=== PATIENT | female | born 1930 | race Caucasian/White ===

== ENCOUNTER 2016-07-23 20:51 | Inpatient (IN) | payer MEDICARE, OTHER ==
[~2016-07-23] VITALS: Ht 154.9 cm; Wt 63.0 kg
--- OUTSIDE RECORDS SUMMARY | 2016-07-23 21:40 | XMS REPORT | Continuity of Care Document ---
Author Author [facility] Address Unknown Phone Unavailable Support Name Relationship Address Phone JAMEY HURLEY Fabricio DO Caregiver [address] [place] [address] KEVIN DICK Next Of Kin [address] [place] [address] Insurance Providers Payer Name Policy Number Subscriber Name Relationship Medicare A And B [id number] Daija Blanco 16 Self / Same As Patient Advance Directives Directive Response Recorded Date/Time Advanced Directives Unknown 07/23/16 2:49pm Type Other 07/23/16 2:49pm Other DAUGHTER HAS MEDICAL POA 07/23/16 2:49pm Chief Complaint and Reason for Visit Chief Complaint Psychological Complaint Reason for Visit Mental health problem Problems Active Problems Medical Problem Onset Date Status Cellulitis of left ankle ~09/22/2014 Acute Chest discomfort Unknown Acute Chronic pain of right knee 02/16/2016 Acute Chronic right hip pain 02/16/2016 Acute Costochondritis, acute Unknown Acute Dementia Unknown Acute Hypothyroid ~10/08/2014 Acute Mental health problem Unknown Acute Pruritus Unknown Acute UTI (urinary tract infection) Unknown Acute Medications Current Home Medications Medication Dose Units Route Directions Days/Qty Instructions Start Date Levothyroxine Sodium (Synthroid) 100 Mcg 100 Mcg ORAL Daily 10/08/14 Amlodipine Besylate (Norvasc) 5 Mg 5 Mg ORAL Daily 10/08/14 Losartan Potassium (Cozaar) 50 Mg 50 Mg ORAL Daily 10/08/14 Gabapentin (Neurontin) 100 Mg 100 Mg ORAL Three Times A Day 06/01/16 Ibuprofen (Motrin) 200 Mg 400 Mg ORAL Twice A Day 07/23/16 Past Home Medications Medication Directions Ordered Status [Unknown] , 09/22/14 Discontinued Clindamycin Hcl 150 Mg Cap, 150 Mg Oral Four Times Daily 09/22/14 Discontinued Levothyroxine Sodium 100 Mcg Tablet, 100 Mcg Oral Daily 10/08/14 Discontinued Hydroxyzine Hcl 25 Mg Tablet, 25-50 Mg Oral Every 6 Hours 02/16/16 Discontinued Hydrocodone Bit/Acetaminophen 1 Each Tablet, 1 Each Oral Every 6 Hours for Pain 02/16/16 Discontinued Sulfamethoxazole/Trimethoprim (Bactrim Ds 800MG/160MG) 1 Each Tablet, 1 Each Oral Twice A Day 05/03/16 Discontinued Ciprofloxacin Hcl 250 Mg Tablet, 250 Mg Oral Twice A Day 06/01/16 Discontinued Social History Query Response Start Date Stop Date Smoking Status Never smoker Hospital Discharge Instructions No hospital discharge instructions. Plan of Care Discharge Date 07/23/16 7:02pm Disposition [facility] DIST [facility]Y UNIT Condition at Discharge Transfer Prescriptions See Medication Section Additional Instructions/Education Proceded directly to [facility] in [place], [place]. Some of your test results may not be complete prior to your leaving the Emergency Department. The Emergency Department is not authorized to give test results over the phone. Please contact the doctor's office listed in this packet of information for your final results. Follow up with your primary care physician or return to the Emergency Department for worsening or worrisome symptoms. * Emergency Department phone number: [phone], x [phone]* MEDICAL RECORD If you need copies of your X-rays, call [phone]. If you need copies of your medical record, including lab results, a signed authorization for release of records will be required. A telephone call for release of Health Information is not allowed. BILLING Billing can sometimes be confusing and frustrating. To help avoid confusion in the future, please take a moment to acquaint yourself with the billing parties for services. SERVICE BILLING [employer]STITUTION [employer]Y Emergency Room Services [facility] Physician Services [facility] X-rays [facility] Patients will receive bills for services from the appropriate provider. If you have any questions about your [facility] bill, our staff will be happy to assist you. Please call [phone], and ask for the billing department. THANK YOU for choosing [facility] as your emergency care provider! Care Plan and Goals ~~Discharge Care Plan~~ Problem: Problems with coping. Goal: Patient will use appropriate resources to deal with life situations. Instructions: Call [place] hotline @ for assistance. Follow up with screener as directed. Functional Status No functional status results. Allergies, Adverse Reactions, Alerts Allergen Type Severity Reaction Status Last Updated Penicillin Allergy Severe Anaphylaxis Active 04/12/16 Codeine Allergy Unknown Active 07/23/16 mycins Allergy Unknown Active 09/22/14 Immunizations No immunization records. Vital Signs Acute Vital Signs Vital Response Date/Time Temperature (Fahrenheit) 98.8 07/23/2016 7:00pm Pulse 85 bpm 07/23/2016 7:00pm Respirations 20 07/23/2016 7:00pm Height 5 ft 3 in Weight 134 lb Body Mass Index 23.0 kg/m^2 Results Laboratory Results Test Name Result Units Flags Reference Collection Date/Time Result Date/ Time Comments White Blood Count 12.48 10^3uL H 4.0-11.0 07/23/2016 3:56pm 07/23/2016 4 :08pm Red Blood Count 4.33 10^6uL 4.00-5.00 07/23/2016 3:56pm 07/23/2016 4: 08pm Hemoglobin 12.6 g/dL 12.0-15.5 07/23/2016 3:56pm 07/23/2016 4:08pm Hematocrit 36.70 % 35.00-45.00 07/23/2016 3:56pm 07/23/2016 4:08pm Mean Corpuscular Volume 85 FL 80-100 07/23/2016 3:56pm 07/23/2016 4: 08pm Mean Corpuscular Hemoglobin 29.1 PG 26.0-34.0 07/23/2016 3:56pm 2016 4:08pm Mean Corpuscular Hemoglobin Concent 34.3 g/dL 31.0-37.0 07/23/2016 3: 56pm 07/23/2016 4:08pm Red Cell Distribution Width 13.7 % 11.8-15.6 07/23/2016 3:56pm 2016 4:08pm Platelet Count 318 10^3uL 150-450 07/23/2016 3:56pm 07/23/2016 4:08pm Mean Platelet Volume 7.9 FL 6.0-9.5 07/23/2016 3:56pm 07/23/2016 4: 08pm Neutrophils (%) (Auto) 75 % H 51-67 07/23/2016 3:56pm 07/23/2016 4:08pm Lymphocytes (%) (Auto) 16 % L 20-46 07/23/2016 3:56pm 07/23/2016 4:08pm Monocytes (%) (Auto) 8 % 3-11 07/23/2016 3:56pm 07/23/2016 4:08pm Eosinophils (%) (Auto) 1 % 0-4 07/23/2016 3:56pm 07/23/2016 4:08pm Basophils (%) (Auto) 1 % 0-2 07/23/2016 3:56pm 07/23/2016 4:08pm Neutrophils # (Auto) 9.3 X10^3 07/23/2016 3:56pm 07/23/2016 4:08pm Lymphocytes # (Auto) 2.0 X10^3 07/23/2016 3:56pm 07/23/2016 4:08pm Monocytes # (Auto) 1.0 X10^3 07/23/2016 3:56pm 07/23/2016 4:08pm Eosinophils # (Auto) 0.1 10^3uL 07/23/2016 3:56pm 07/23/2016 4:08pm Basophils # (Auto) 0.1 10^3uL 07/23/2016 3:56pm 07/23/2016 4:08pm Volume Urine Centrifuged 12 mL 07/23/2016 3:30pm 07/23/2016 4:32pm Urine Collection Type CLEAN CATCH 07/23/2016 3:30pm 07/23/2016 4: 32pm Urine Color Dark Yellow 07/23/2016 3:30pm 07/23/2016 4:19pm Urine Clarity Slightly Cloudy 07/23/2016 3:30pm 07/23/2016 4:19pm Urine pH 6.0 5.0 - 8.0 07/23/2016 3:30pm 07/23/2016 4:19pm Urine Specific [place] 1.020 1.005-1.030 07/23/2016 3:30pm 2016 4:19pm Urine Protein Negative Negative 07/23/2016 3:30pm 07/23/2016 4:19pm Urine Glucose (UA) Negative Negative 07/23/2016 3:30pm 07/23/2016 4: 19pm Urine Blood Trace-intact H Negative 07/23/2016 3:3007/23/2016 4: 19pm Urine Ketones Negative Negative 07/23/2016 3:30pm 07/23/2016 4:19pm Urine Nitrite Negative Negative 07/23/2016 3:3007/23/2016 4:19pm Urine Bilirubin Negative Negative 07/23/2016 3:3007/23/2016 4: 19pm Urine Urobilinogen 0.2 mg/dL 0.2-1.0 07/23/2016 3:30pm 07/23/2016 4: 19pm Urine Leukocyte Esterase Trace H Negative 07/23/2016 3:302016 4:19pm Urine Microscopic RBC 0-2 /HPF 07/23/2016 3:30pm 07/23/2016 4:32pm Urine WBC 2-5 /HPF 07/23/2016 3:3007/23/2016 4:32pm Urine Bacteria 1+ /HPF 07/23/2016 3:30pm 07/23/2016 4:32pm Urine Squamous Epithelial Cells 20-50 /LPF 07/23/2016 3:302016 4:32pm Urine Mucus 1+ 07/23/2016 3:3007/23/2016 4:32pm Sodium Level 133 mmol/L L 135-150 07/23/2016 3:5607/23/2016 4:19pm Potassium Level 4.7 mmol/L 3.5-5.1 07/23/2016 3:5607/23/2016 4:19pm Chloride Level 97 mmol/L L 98-108 07/23/2016 3:56pm 07/23/2016 4:19pm Carbon Dioxide Level 24 mmol/L 22-29 07/23/2016 3:56pm 07/23/2016 4: 19pm Anion Gap 17.7 MEQ/L H 3-15 07/23/2016 3:56pm 07/23/2016 4:19pm Blood Urea Nitrogen 18 mg/dL 7-18 07/23/2016 3:56pm 07/23/2016 4:19pm Creatinine 0.56 mg/dL L 0.6-1.2 07/23/2016 3:56pm 07/23/2016 4:19pm BUN/Creatinine Ratio 32 H 10-20 07/23/2016 3:56pm 07/23/2016 4:19pm Estimat Glomerular Filtration Rate 123.6 07/23/2016 3:56pm 2016 4:19pm Estimated GFR (Non- 102.2 07/23/2016 3:2016 4:19pm Glucose Level 98 mg/dL 70-110 07/23/2016 3:pm 07/23/2016 4:19pm Calculated Osmolality 260 mosm/L L 280-300 07/23/2016 3:56pm 07/23/2016 4:19pm Calcium Level 10.5 mg/dL 8.8-10.8 07/23/2016 3:07/23/2016 4:19pm Calcium/Ionized Calcium Ratio 4.2 mg/dL 3.8-4.6 07/23/2016 3:pm 07/23 4:19pm Total Bilirubin 0.7 mg/dL 0.1-1.0 07/23/2016 3:56pm 07/23/2016 4:19pm Alkaline Phosphatase 114 U/L 38-126 07/23/2016 3:pm 07/23/2016 4: 19pm Aspartate Amino Transf (AST/SGOT) 27 U/L 15-37 07/23/2016 3:2016 4:19pm Alanine Aminotransferase (ALT/SGPT) 28 U/L L 30-65 07/23/2016 3:pm 4:19pm Troponin I < 0.012 ng/mL 0.010-0.080 07/23/2016 3:56pm 07/23/2016 4: 28pm Results called to [] who read back the results. Called by Micha Smith at 1627 Total Protein 8.5 g/dL 6.4-8.5 07/23/2016 3:56pm 07/23/2016 4:19pm Albumin 4.7 g/dL 3.4-5.0 07/23/2016 3:56pm 07/23/2016 4:19pm Albumin/Globulin Ratio 1.236 1.1-1.8 07/23/2016 3:56pm 07/23/2016 4: 19pm Thyroid Stimulating Hormone (TSH) 3.85 uIU/mL # 0.46-4.68 07/23/2016 3: 56pm 07/23/2016 5:05pm C-Reactive Protein 1.10 mg/dL H 0.0-0.9 07/23/2016 3:56pm 07/23/2016 4: 19pm Serum Alcohol < 10.0 mg/dL L 10-80 07/23/2016 3:56pm 07/23/2016 4:19pm Procedures No known history of procedures. Encounters Encounter Location Arrival/Admit Date Discharge/Depart Date Attending Provider Departed Emergency Room [facility] 07/23/16 2:32pm 07/23/16 7:02pm JAMEY HURLEY DO Recent Diagnosis
--- OUTSIDE RECORDS SUMMARY | 2016-07-23 21:40 | XMS REPORT | Continuity of Care Document ---
Author Author [facility] Address Unknown Phone Unavailable Support Name Relationship Address Phone CORWIN CARL MD Caregiver [address] [place] [address] KEVIN DICK Next Of Kin [address] [place] [address] Insurance Providers Payer Name Policy Number Subscriber Name Relationship Medicare A And B [id number] Daija Blanco 18 Self / Same As Patient Other1 [id number] Daija Blanco 18 Self / Same As Patient Advance Directives Directive Response Recorded Date/Time Advanced Directives Unknown 04/12/16 8:02pm Type Living Will 02/16/16 1:54pm Chief Complaint and Reason for Visit Chief Complaint Cardiac Complaint Reason for Visit [id number] Chest discomfort Problems Active Problems Medical Problem Onset Date Status Cellulitis of left ankle ~09/22/2014 Acute Chest discomfort Unknown Acute Chronic pain of right knee 02/16/2016 Acute Chronic right hip pain 02/16/2016 Acute Costochondritis, acute Unknown Acute Hypothyroid ~10/08/2014 Acute Pruritus Unknown Acute Medications Current Home Medications Medication Dose Units Route Directions Days/Qty Instructions Start Date Levothyroxine Sodium (Synthroid) 100 Mcg 100 Mcg ORAL Daily 10/08/14 Amlodipine Besylate (Norvasc) 5 Mg 5 Mg ORAL Daily 10/08/14 Losartan Potassium (Cozaar) 50 Mg 50 Mg ORAL Daily 10/08/14 Hydroxyzine Hcl 25 Mg 25-50 Mg ORAL Every 6 Hours 30 02/16/16 Hydrocodone Bit/Acetaminophen 1 Each 1 Each ORAL Every 6 Hours for Pain 10 02/16/16 Past Home Medications Medication Directions Ordered Status [Unknown] , 09/22/14 Discontinued Clindamycin Hcl 150 Mg Cap, 150 Mg Oral Four Times Daily 09/22/14 Discontinued Levothyroxine Sodium 100 Mcg Tablet, 100 Mcg Oral Daily 10/08/14 Discontinued Social History Query Response Start Date Stop Date Smoking Status Never smoker Hospital Discharge Instructions No hospital discharge instructions. Plan of Care Discharge Date 04/12/16 11:00pm Disposition 01 HOME OR SELF-CARE Condition at Discharge Stable Instructions/Education Provided Costochondritis (DC) Prescriptions See Medication Section Additional Instructions/Education Ibuprofen and Tylenol for the chest discomfort. Analgesic cream massage and heat may help. Continue all current medications. If symptoms persist or worsen see your physician for follow-up Some of your test results may not [...] worrisome symptoms. * Emergency Department phone number: [phone], x [phone]* MEDICAL RECORD If you need copies of your X-rays, call [phone] x [phone]. If you need copies of [...] SERVICE BILLING [employer]STITUTION PARTY Emergency Room Services [facility] Physician Services [facility] X-rays [facility] Patients will receive bills for services from the appropriate provider. If you have any questions about your [facility] bill, our staff will be happy to assist you. Please call [phone], and ask for the billing department. THANK YOU for choosing [facility] as your emergency care provider! Care Plan and Goals ~~Discharge Care Plan~~ Problem: Chest, epigastric or chest wall pain Goal: Decreased pain Instructions: Take medication(s) as directed. Follow home discharge instructions. Follow up with primary care physician or tutor as directed. Functional Status No functional status results. Allergies, Adverse Reactions, Alerts Allergen Type Severity Reaction Status Last Updated Penicillin Allergy Severe Anaphylaxis Active 04/12/16 mycins Allergy Unknown Active 09/22/14 Immunizations No immunization records. Vital Signs Acute Vital Signs Vital Response Date/Time Temperature (Fahrenheit) 98.4 04/12/2016 11:20pm Pulse 87 bpm 04/12/2016 11:20pm Respirations 20 04/12/2016 11:20pm Height 5 ft 3 in Weight 126 lb Body Mass Index 22.0 kg/m^2 Results Laboratory Results Test Name Result Units Flags Reference Collection Date/Time Result Date/ Time Comments White Blood Count 8.34 10^3uL 4.0-11.0 04/12/2016 8:30pm 04/12/2016 8: 56pm Red Blood Count 4.16 10^6uL 4.00-5.00 04/12/2016 8:30pm 04/12/2016 8: 56pm Hemoglobin 11.8 g/dL L 12.0-15.5 04/12/2016 8:30pm 04/12/2016 8:56pm Hematocrit 34.70 % L 35.00-45.00 04/12/2016 8:30pm 04/12/2016 8:56pm Mean Corpuscular Volume 83 FL 80-100 04/12/2016 8:30pm 04/12/2016 8: 56pm Mean Corpuscular Hemoglobin 28.4 PG 26.0-34.0 04/12/2016 8:30pm 2016 8:56pm Mean Corpuscular Hemoglobin Concent 34.0 g/dL 31.0-37.0 04/12/2016 8: 30pm 04/12/2016 8:56pm Red Cell Distribution Width 13.7 % 11.8-15.6 04/12/2016 8:30pm 2016 8:56pm Platelet Count 272 10^3uL 150-450 04/12/2016 8:30pm 04/12/2016 8:56pm Mean Platelet Volume 8.4 FL 6.0-9.5 04/12/2016 8:30pm 04/12/2016 8: 56pm Neutrophils (%) (Auto) 59 % 51-67 04/12/2016 8:30pm 04/12/2016 8:56pm Lymphocytes (%) (Auto) 25 % 20-46 04/12/2016 8:30pm 04/12/2016 8:56pm Monocytes (%) (Auto) 13 % H 3-11 04/12/2016 8:30pm 04/12/2016 8:56pm Eosinophils (%) (Auto) 2 % 0-4 04/12/2016 8:30pm 04/12/2016 8:56pm Basophils (%) (Auto) 1 % 0-2 04/12/2016 8:30pm 04/12/2016 8:56pm Neutrophils # (Auto) 4.9 X10^3 04/12/2016 8:30pm 04/12/2016 8:56pm Lymphocytes # (Auto) 2.1 X10^3 04/12/2016 8:30pm 04/12/2016 8:56pm Monocytes # (Auto) 1.1 X10^3 04/12/2016 8:30pm 04/12/2016 8:56pm Eosinophils # (Auto) 0.2 10^3uL 04/12/2016 8:30pm 04/12/2016 8:56pm Basophils # (Auto) 0.1 10^3uL 04/12/2016 8:30pm 04/12/2016 8:56pm Prothrombin Time 11.3 SEC 10.0-12.5 04/12/2016 8:30pm 04/12/2016 9: 10pm Prothromb Time International Ratio 1.0 0.8-1.4 04/12/2016 8:30 9:10pm Sodium Level 137 mmol/L 135-150 04/12/2016 8:3004/12/2016 9:20pm Potassium Level 3.8 mmol/L 3.5-5.1 04/12/2016 8:30pm 04/12/2016 9:20pm Chloride Level 102 mmol/L 98-108 04/12/2016 8:30pm 04/12/2016 9:20pm Carbon Dioxide Level 24 mmol/L 22-29 04/12/2016 8:30pm 04/12/2016 9: 20pm Anion Gap 14.7 MEQ/L 3-15 04/12/2016 8:30pm 04/12/2016 9:20pm Blood Urea Nitrogen 16 mg/dL 7-18 04/12/2016 8:30pm 04/12/2016 9:20pm Creatinine 0.52 mg/dL L 0.6-1.2 04/12/2016 8:30pm 04/12/2016 9:20pm BUN/Creatinine Ratio 31 H 10-20 04/12/2016 8:30pm 04/12/2016 9:20pm Estimat Glomerular Filtration Rate 134.7 04/12/2016 8:302016 9:20pm Estimated GFR (Non- 111.3 04/12/2016 8:30pm 2016 9:20pm Glucose Level 124 mg/dL H 70-110 04/12/2016 8:30pm 04/12/2016 9:20pm Calculated Osmolality 267 mosm/L L 280-300 04/12/2016 8:30pm 04/12/2016 9:20pm Calcium Level 9.9 mg/dL 8.8-10.8 04/12/2016 8:3004/12/2016 9:20pm Calcium/Ionized Calcium Ratio 4.1 mg/dL 3.8-4.6 04/12/2016 8:30pm 04/12 9:20pm Total Bilirubin 0.6 mg/dL 0.1-1.0 04/12/2016 8:30pm 04/12/2016 9:20pm Alkaline Phosphatase 116 U/L 38-126 04/12/2016 8:30pm 04/12/2016 9: 20pm Aspartate Amino Transf (AST/SGOT) 23 U/L 15-37 04/12/2016 8:302016 9:20pm Alanine Aminotransferase (ALT/SGPT) 31 U/L 30-65 04/12/2016 8:30pm 9:20pm Troponin I 0.014 ng/mL 0.010-0.080 04/12/2016 8:30pm 04/12/2016 9:20pm BT-Xwa-A-Type Natriuretic Peptide 476 pg/mL H 0-450 04/12/2016 8:30pm 9:20pm <300 ng/mL - HF unlikely Age <50 years, NT-proBNP >450 pg/mL - HF Likely Age 50-75 yrs, NT-proBNP >900 pg/mL - HF Likely Age >75 yrs, NT-proBNP >1800 - HF likely Total Protein 7.8 g/dL 6.4-8.5 04/12/2016 8:30pm 04/12/2016 9:20pm Albumin 4.3 g/dL 3.4-5.0 04/12/2016 8:30pm 04/12/2016 9:20pm Albumin/Globulin Ratio 1.228 1.1-1.8 04/12/2016 8:30pm 04/12/2016 9: 20pm Procedures No known history of procedures. Encounters Encounter Location Arrival/Admit Date Discharge/Depart Date Attending Provider Departed Emergency Room [facility] 04/12/16 8:04pm 04/12/16 11:00pm CORWIN CARL MD Recent Diagnosis
--- OUTSIDE RECORDS SUMMARY | 2016-07-23 21:40 | XMS REPORT | Continuity of Care Document ---
Author Author [facility] Address Unknown Phone Unavailable Support Name Relationship Address Phone KARIS VALENCIA MD Caregiver [address] [place] [address] KEVIN DICK Next Of Kin [address] [place] [address] Insurance Providers Payer Name Policy Number Subscriber Name Relationship Medicare A And B [id number] Daija Blanco 18 Self / Same As Patient Other1 [id number] Daija Blanco 18 Self / Same As Patient Advance Directives Directive Response Recorded Date/Time Advanced Directives Yes 02/16/16 1:54pm Type Living Will 02/16/16 1:54pm Chief Complaint and Reason for Visit Chief Complaint Pain Reason for Visit [id number] Chronic pain of right knee Pruritus Problems Active Problems Medical Problem Onset Date Status Cellulitis of left ankle ~09/22/2014 Acute Chronic pain of right knee 02/16/2016 Acute Chronic right hip pain 02/16/2016 Acute Hypothyroid ~10/08/2014 Acute Pruritus Unknown Acute [...] discharge instructions. Plan of Care Discharge Date 02/16/16 5:36pm Disposition 01 HOME OR SELF-CARE Condition at Discharge Stable Instructions/Education Provided Hydrocodone/Acetaminophen (By mouth) Arthritis (ED) Prescriptions See Medication Section Additional Instructions/Education Take Tylenol (generic is fine) every 6 hours - up to 4 gm (4000 mg) daily Ibuprofen 400 mg every 6 hours as needed for pain You can take Tylenol and ibuprofen at the same time. Hydroxyzine 25 mg (1-2 tab) every 6 hours as needed for itching Return if symptoms worsen Follow up as soon as you can with Dr. Miller Hydrocodone 5/325 take 1/2 - 1 tab every 6 hours as needed for pain not controlled by over the counter medications Some of your test results may not [...] worrisome symptoms. * Emergency Department phone number: [phone], x [phone]* MEDICAL RECORD If you need copies of your X-rays, call [phone]. If you need copies of [...] the billing parties for services. [employer] Emergency Room Services [facility] Physician Services [facility] X[facility] [place] [facility] Patients will receive bills for services from the appropriate provider. If you have any questions about your [facility] bill, our staff will be happy to assist you. Please call [phone], and ask for the billing department. THANK YOU for choosing [facility] as your emergency care provider! Care Plan and Goals ~~Discharge Care Plan~~ Problem: Sprain, strain or fracture of extremity Goal: Extremity will be pink and warm to touch, with good movement of fingers or toes. Instructions: Apply ice bag and elevate extremity above the level of your heart. Monitor extremity for pink color to fingers or toes and movement. Call your physician if extremity becomes blue in color or cool to touch. Some swelling of fingers or toes is expected, continue to wiggle fingers and toes and keep elevated. Allow 24-48 hours for the splint to dry completely. Do not place splint on a hard surface to avoid a pressure area. Take medication(s) as directed. Follow up with Orthopedic or primary care physician as directed. Functional Status No functional status results. Allergies, Adverse Reactions, Alerts Allergen Type Severity Reaction Status Last Updated Penicillin Allergy Severe Anaphylaxis Active 02/16/16 mycins Allergy Unknown Active 09/22/14 Immunizations No immunization records. Vital Signs Acute Vital Signs Vital Response Date/Time Temperature (Fahrenheit) 98.4 02/16/2016 1:54pm Pulse 83 bpm 02/16/2016 9:06pm Respirations 18 02/16/2016 9:06pm Height 5 ft 3 in Weight 130 lb Body Mass Index 23.0 kg/m^2 Results Laboratory Results Test Name Result Units Flags Reference Collection Date/Time Result Date/ Time Comments White Blood Count 12.04 10^3uL H 4.0-11.0 02/16/2016 2:37pm 02/16/2016 3 :12pm Red Blood Count 4.10 10^6uL 4.00-5.00 02/16/2016 2:37pm 02/16/2016 3: 12pm Hemoglobin 11.7 g/dL L 12.0-15.5 02/16/2016 2:37pm 02/16/2016 3:12pm Hematocrit 34.50 % L 35.00-45.00 02/16/2016 2:37pm 02/16/2016 3:12pm Mean Corpuscular Volume 84 FL 80-100 02/16/2016 2:37pm 02/16/2016 3: 12pm Mean Corpuscular Hemoglobin 28.5 PG 26.0-34.0 02/16/2016 2:37pm 2015 3:12pm Mean Corpuscular Hemoglobin Concent 33.9 g/dL 31.0-37.0 02/16/2016 2: 37pm 02/16/2016 3:12pm Red Cell Distribution Width 13.4 % 11.8-15.6 02/16/2016 2:37pm 2015 3:12pm Platelet Count 284 10^3uL 150-450 02/16/2016 2:37pm 02/16/2016 3:12pm Mean Platelet Volume 8.0 FL 6.0-9.5 02/16/2016 2:37pm 02/16/2016 3: 12pm Neutrophils (%) (Auto) 72 % H 51-67 02/16/2016 2:37pm 02/16/2016 3:12pm Lymphocytes (%) (Auto) 15 % L 20-46 02/16/2016 2:37pm 02/16/2016 3:12pm Monocytes (%) (Auto) 12 % H 3-11 02/16/2016 2:37pm 02/16/2016 3:12pm Eosinophils (%) (Auto) 1 % 0-4 02/16/2016 2:37pm 02/16/2016 3:12pm Basophils (%) (Auto) 0 % 0-2 02/16/2016 2:37pm 02/16/2016 3:12pm Neutrophils # (Auto) 8.7 X10^3 02/16/2016 2:37pm 02/16/2016 3:12pm Lymphocytes # (Auto) 1.8 X10^3 02/16/2016 2:37pm 02/16/2016 3:12pm Monocytes # (Auto) 1.4 X10^3 02/16/2016 2:37pm 02/16/2016 3:12pm Eosinophils # (Auto) 0.1 10^3uL 02/16/2016 2:37pm 02/16/2016 3:12pm Basophils # (Auto) 0.0 10^3uL 02/16/2016 2:37pm 02/16/2016 3:12pm Sodium Level 138 mmol/L 135-150 02/16/2016 2:37pm 02/16/2016 3:21pm Potassium Level 3.9 mmol/L 3.5-5.1 02/16/2016 2:37pm 02/16/2016 3:21pm Chloride Level 102 mmol/L 98-108 02/16/2016 2:37pm 02/16/2016 3:21pm Carbon Dioxide Level 25 mmol/L 22-29 02/16/2016 2:37pm 02/16/2016 3: 21pm Anion Gap 15.4 MEQ/L H 3-15 02/16/2016 2:37pm 02/16/2016 3:21pm Blood Urea Nitrogen 14 mg/dL 7-18 02/16/2016 2:37pm 02/16/2016 3:21pm Creatinine 0.52 mg/dL L 0.6-1.2 02/16/2016 2:37pm 02/16/2016 3:21pm BUN/Creatinine Ratio 27 H 10-20 02/16/2016 2:37pm 02/16/2016 3:21pm Estimat Glomerular Filtration Rate 134.7 02/16/2016 2:37pm 2015 3:21pm Estimated GFR (Non- 111.3 02/16/2016 2:37pm 2015 3:21pm Glucose Level 104 mg/dL 70-110 02/16/2016 2:37pm 02/16/2016 3:21pm Calculated Osmolality 267 mosm/L L 280-300 02/16/2016 2:37pm 02/16/2016 3:21pm Calcium Level 10.0 mg/dL 8.8-10.8 02/16/2016 2:37pm 02/16/2016 3:21pm Calcium/Ionized Calcium Ratio 4.3 mg/dL 3.8-4.6 02/16/2016 2:37pm 02/15 3:21pm Total Bilirubin 1.0 mg/dL 0.1-1.0 02/16/2016 2:37pm 02/16/2016 3:21pm Alkaline Phosphatase 109 U/L 38-126 02/16/2016 2:37pm 02/16/2016 3: 21pm Aspartate Amino Transf (AST/SGOT) 20 U/L 15-37 02/16/2016 2:37pm 2015 3:21pm Alanine Aminotransferase (ALT/SGPT) 22 U/L L 30-65 02/16/2016 2:37pm 08/2015 3:21pm Total Protein 7.3 g/dL 6.4-8.5 02/16/2016 2:37pm 02/16/2016 3:21pm Albumin 4.2 g/dL 3.4-5.0 02/16/2016 2:37pm 02/16/2016 3:21pm Albumin/Globulin Ratio 1.354 1.1-1.8 02/16/2016 2:37pm 02/16/2016 3: 21pm Procedures No known history of procedures. Encounters Encounter Location Arrival/Admit Date Discharge/Depart Date Attending Provider Departed Emergency Room [facility] 02/16/16 1:54pm 02/16/16 5:36pm KARIS VALENCIA MD Registered Clinic [facility] 02/16/16 1:40pm KARIS VALENCIA MD Recent Diagnosis
--- OUTSIDE RECORDS SUMMARY | 2016-07-23 21:40 | XMS REPORT | Continuity of Care Document ---
Author Author [facility] Organization [facility] Address Unknown Phone Unavailable Support Name Relationship Address Phone HAYES MINER MD Caregiver [address] [place] [address] Insurance Providers Payer Name Policy Number Subscriber Name Relationship Medicare A And B [id number] Daija Blanco 18 Self / Same As Patient Chief Complaint and Reason for Visit Chief Complaint Malaise Reason for Visit [id number] Problems Medical Problems Problem Onset Date Status Cellulitis of left ankle ~09/22/2014 Active Hypothyroid Unknown Active Medications Medication Dose Route Sig Days/Qty Instructions Order Date Discontinued Date Status [Unknown] 09/22/14 Active Clindamycin HCl 150 Mg ORAL FOUR TIMES DAILY 40 Qty 09/22/14 10/08/14 Discontinued Levothyroxine Sodium (Synthroid) 100 Mcg ORAL DAILY 10/08/14 Active Amlodipine Besylate (Norvasc) 5 Mg ORAL DAILY 10/08/14 Active Losartan Potassium (Cozaar) 50 Mg ORAL DAILY 10/08/14 Active Levothyroxine Sodium 100 Mcg ORAL DAILY 30 Qty 10/08/14 Active Social History No social history. Hospital Discharge Instructions No hospital discharge instructions. Plan of Care Discharge Date 10/08/14 10:25pm Disposition 01 HOME OR SELF-CARE Condition at Discharge Stable Instructions/Education Provided Hypothyroidism (ED) Prescriptions See Medications Section Additional Instructions/Education Levothyroxine 100mcg as Rx'd, #30 prescribed -- refills from your PCP. Drive safe! Some of your test results may not [...] worrisome symptoms. * Emergency Department phone number: [phone], x [phone]* MEDICAL RECORD If you need copies of your X-rays, call [phone]. If you need copies of [...] the billing parties for services. [employer] [employer] Emergency Room Services [facility] Physician Services [facility] X[facility] [place] [facility] Patients will receive bills for services from the appropriate provider. If you have any questions about your [facility] bill, our staff will be happy to assist you. Please call [phone], and ask for the billing department. THANK YOU for choosing [facility] as your emergency care provider! Functional Status No functional status results. Allergies, Adverse Reactions, Alerts Allergen Type Severity Reaction Status Last Updated Penicillin Allergy Severe Anaphylaxis Active 09/22/14 mycins Allergy Unknown Active 09/22/14 Immunizations No immunization records. Vital Signs Acute Vital Signs Vital Response Date/Time Temperature (Fahrenheit) 98.4 Pulse 91 bpm Respirations 18 Height 5 ft 3 in Weight 125 lb Body Mass Index 22.0 kg/m^2 Results No known relevant diagnostic tests, laboratory data and/or discharge summary. Procedures No known history of procedures. Encounters Encounter Location Date/Time Departed Emergency Room [facility] 10/08/14 9:31pm Departed Emergency Room [facility] 09/22/14 4:33pm Recent Diagnosis
--- OUTSIDE RECORDS SUMMARY | 2016-07-23 21:40 | XMS REPORT | Continuity of Care Document ---
Author Author [facility] Address Unknown Phone Unavailable Care Team Providers Care Roof Bolter Helper Name Role Phone LING ZIEGLER MD Primary Care Physician [phone] Insurance Providers Payer Name Policy Number Subscriber Name Relationship Medicare A And B [id number] Daija Blanco 18 Self / Same As Patient Other1 [id number] Daija Blanco 18 Self / Same As Patient Advance Directives Directive Response Recorded Date/Time Advanced Directives Unknown 06/01/16 4:13pm Type Living Will 06/01/16 4:13pm Chief Complaint and Reason for Visit Chief Complaint Psychological Complaint Reason for Visit [id number] Dementia Problems Active Problems Medical Problem Onset Date Status Cellulitis of left ankle ~09/22/2014 Acute Chest discomfort Unknown Acute Chronic pain of right knee 02/16/2016 Acute Chronic right hip pain 02/16/2016 Acute Costochondritis, acute Unknown Acute Dementia Unknown Acute Hypothyroid ~10/08/2014 Acute Pruritus Unknown Acute UTI (urinary tract [...] Mg ORAL Every 6 Hours 30 02/16/16 Gabapentin (Neurontin) 100 Mg 100 Mg ORAL Three Times A Day 06/01/16 Ciprofloxacin Hcl 250 Mg 250 Mg ORAL Twice A Day 10 06/01/16 Past Home Medications Medication Directions Ordered Status [Unknown] , 09/22/14 Discontinued Clindamycin Hcl 150 Mg Cap, 150 Mg Oral Four Times Daily 09/22/14 Discontinued Levothyroxine Sodium 100 Mcg Tablet, 100 Mcg Oral Daily 10/08/14 Discontinued Hydrocodone Bit/Acetaminophen 1 Each Tablet, 1 Each Oral Every 6 Hours for Pain 02/16/16 Discontinued Sulfamethoxazole/Trimethoprim (Bactrim Ds 800MG/160MG) 1 Each Tablet, 1 Each Oral Twice A Day 05/03/16 Discontinued Social History Query Response Start Date Stop Date Smoking Status Never smoker Hospital Discharge Instructions No hospital discharge instructions. Plan of Care Discharge Date 06/01/16 6:44pm Disposition 01 HOME OR SELF-CARE Condition at Discharge Stable Instructions/Education Provided Urinary Tract Infections in Adults Prescriptions See Medication Section Referrals LING ZIEGLER MD - Additional Instructions/Education Follow up with primary care provider in am at 9:45 am. Please retreat to your room this evening. If symptoms worsen, return to ER. Take the medication as directed Some of your test results may not [...] worrisome symptoms. * Emergency Department phone number: [phone], x [phone]* MEDICAL RECORD If you need copies of your X-rays, call [phone] x [phone]. If you need copies of [...] [employer]ING [employer] Emergency Room Services [facility] Physician Services [facility] X-rays [place] [facility] Patients will receive bills for services from the appropriate provider. If you have any questions about your [facility] bill, our staff will be happy to assist you. Please call [phone], and ask for the billing department. THANK YOU for choosing [facility] as your emergency care provider! Care Plan and Goals ~~Discharge Care Plan~~ Problem: Problems with coping. Goal: Patient will use appropriate resources to deal with life situations. Instructions: Call [place] hotline @ for assistance. Follow up with screener as directed. Functional Status No functional status results. Allergies, Adverse Reactions, Alerts Allergen Type Severity Reaction Status Last Updated Penicillin Allergy Severe Anaphylaxis Active 04/12/16 mycins Allergy Unknown Active 09/22/14 Immunizations No immunization records. Vital Signs Acute Vital Signs Vital Response Date/Time Temperature (Fahrenheit) 97.1 06/01/2016 6:43pm Pulse 94 bpm 06/01/2016 6:43pm Respirations 16 06/01/2016 6:43pm Height 5 ft 3 in Weight 130 lb Body Mass Index 23.0 kg/m^2 Results Pending Laboratory Results Test Name Collection Date/Time Procedures No known history of procedures. Encounters Encounter Location Arrival/Admit Date Discharge/Depart Date Attending Provider Departed Emergency Room [facility] 06/01/16 4:13pm 06/01/16 6:44pm JOHN PRIETO MD Registered Clinic [facility] 05/03/16 1:49pm COURTNEY SCHAFER Recent Diagnosis
--- OUTSIDE RECORDS SUMMARY | 2016-07-23 21:41 | XMS REPORT | Continuity of Care Document ---
Author Author [facility] Address Unknown Phone Unavailable Allergies Active Description Code Type Severity Reaction Onset Reported/Identified Relationship to Patient Clinical Status Yes MYCINS Drug Allergy N/A N/A Yes PENICILLIN Drug Allergy N/A N/A Yes mycins mycins Unknown N/A 09/22/2014 Yes Penicillins [id number] Drug Allergy Severe Anaphylaxis 04/12/2016 Medications Problems Date Dx Coded Attending Type Code Diagnosis Diagnosed By 09/22/2014 JAMEY HURLEY DO Ot 682.6 CELLULITIS OF LEG 09/22/2014 JAMEY HURLEY DO Ot 729.5 PAIN IN LIMB 10/08/2014 KRISTOFER CAMPOS, HAYES R Ot 244.9 HYPOTHYROIDISM NOS 02/16/2016 KARIS VALENCIA MD, Ot L29.9 PRURITUS, UNSPECIFIED 02/16/2016 KARIS VALENCIA MD, Ot M16.11 UNILATERAL PRIMARY OSTEOARTHRITIS, RIGHT 02/16/2016 KARIS VALENCIA MD, Ot M17.11 UNILATERAL PRIMARY OSTEOARTHRITIS, RIGHT 02/16/2016 KARIS VALENCIA MD, Ot M25.551 PAIN IN RIGHT HIP 02/16/2016 KARIS VALENCIA MD, Ot M25.561 PAIN IN RIGHT KNEE 02/16/2016 KARIS VALENCIA MD Ot R26.2 DIFFICULTY IN WALKING, NOT ELSEWHERE CLA 02/22/2016 KARIS VALENCIA MD, Ot L29.9 PRURITUS, UNSPECIFIED 02/22/2016 KARIS VALENCIA MD Ot M16.11 UNILATERAL PRIMARY OSTEOARTHRITIS, RIGHT 02/22/2016 KARIS VALENCIA MD Ot M17.11 UNILATERAL PRIMARY OSTEOARTHRITIS, RIGHT 02/22/2016 KARIS VALENCIA MD, Ot M25.551 PAIN IN RIGHT HIP 02/22/2016 KARIS VALENCIA MD, Ot M25.561 PAIN IN RIGHT KNEE 02/22/2016 KARIS VALENCIA MD Ot R26.2 DIFFICULTY IN WALKING, NOT ELSEWHERE CLA 02/22/2016 KARIS VALENCIA MD Ot L29.9 PRURITUS, UNSPECIFIED 02/22/2016 ANNIE MD, KARIS Ot M16.11 UNILATERAL PRIMARY OSTEOARTHRITIS, RIGHT 02/22/2016 ANNIE CAMPOS, KARIS Ot M17.11 UNILATERAL PRIMARY OSTEOARTHRITIS, RIGHT 02/22/2016 KARIS VALENCIA MD Ot M25.551 PAIN IN RIGHT HIP 02/22/2016 KARIS VALENCIA MD Ot M25.561 PAIN IN RIGHT KNEE 02/22/2016 KARIS VALENCIA MD Ot R26.2 DIFFICULTY IN WALKING, NOT ELSEWHERE CLA 02/23/2016 KARIS VALENCIA MD Ot M25.551 PAIN IN RIGHT HIP 02/23/2016 KARIS VALENCIA MD Ot M25.561 PAIN IN RIGHT KNEE 03/01/2016 LING DÍAZ MD Ot E03.8 OTHER SPECIFIED HYPOTHYROIDISM 03/01/2016 LING DÍAZ MD Ot R41.89 OTH SYMPTOMS AND SIGNS W COGNITIVE FUNCT 03/01/2016 KARIS VALENCIA MD Ot M25.551 PAIN IN RIGHT HIP 03/01/2016 ANNIE CAMPOS, KARIS Ot M25.561 PAIN IN RIGHT KNEE 03/01/2016 LING DÍAZ MD Ot E03.8 OTHER SPECIFIED HYPOTHYROIDISM 03/01/2016 LING DÍAZ MD Ot R41.89 OTH SYMPTOMS AND SIGNS W COGNITIVE FUNCT 03/02/2016 LING DÍAZ MD Ot E03.8 OTHER SPECIFIED HYPOTHYROIDISM 03/02/2016 LING DÍAZ MD Ot R41.89 OTH SYMPTOMS AND SIGNS W COGNITIVE FUNCT 03/04/2016 LING DÍAZ MD Ot I10 ESSENTIAL (PRIMARY) HYPERTENSION 03/04/2016 LING DÍAZ MD Ot I10 ESSENTIAL (PRIMARY) HYPERTENSION 03/08/2016 LING DÍAZ MD Ot E03.8 OTHER SPECIFIED HYPOTHYROIDISM 03/08/2016 LING DÍAZ MD Ot E78.4 OTHER HYPERLIPIDEMIA 03/08/2016 LING DÍAZ MD Ot I10 ESSENTIAL (PRIMARY) HYPERTENSION 03/08/2016 LING DÍAZ MD Ot M25.50 PAIN IN UNSPECIFIED JOINT 03/08/2016 LING DÍAZ MD Ot R41.89 OTH SYMPTOMS AND SIGNS W COGNITIVE FUNCT 03/08/2016 LING DÍAZ MD Ot R82.99 OTHER ABNORMAL FINDINGS IN URINE 03/15/2016 KARIS VALENCIA MD Ot M25.551 PAIN IN RIGHT HIP 03/15/2016 KARIS VALENCIA MD Ot M25.561 PAIN IN RIGHT KNEE 03/17/2016 LING DÍAZ MD Ot I10 ESSENTIAL (PRIMARY) HYPERTENSION 03/17/2016 LING DÍAZ MD Ot R01.1 CARDIAC MURMUR, UNSPECIFIED 03/21/2016 ANNIE CAMPOS, KARIS Ot M25.551 PAIN IN RIGHT HIP 03/21/2016 KARIS VALENCIA MD Ot M25.561 PAIN IN RIGHT KNEE 03/29/2016 LING DÍAZ MD Ot E03.8 OTHER SPECIFIED HYPOTHYROIDISM 03/29/2016 LING DÍAZ MD Ot E78.4 OTHER HYPERLIPIDEMIA 03/29/2016 LING DÍAZ MD Ot I10 ESSENTIAL (PRIMARY) HYPERTENSION 03/29/2016 LING DÍAZ MD Ot M25.50 PAIN IN UNSPECIFIED JOINT 03/29/2016 LING DÍAZ MD Ot R41.89 OTH SYMPTOMS AND SIGNS W COGNITIVE FUNCT 03/29/2016 LING DÍAZ MD Ot R82.99 OTHER ABNORMAL FINDINGS IN URINE 04/06/2016 LING DÍAZ MD Ot I10 ESSENTIAL (PRIMARY) HYPERTENSION 04/06/2016 LING DÍAZ MD Ot R01.1 CARDIAC MURMUR, UNSPECIFIED 04/07/2016 LING DÍAZ MD Ot E03.8 OTHER SPECIFIED HYPOTHYROIDISM 04/07/2016 LING DÍAZ MD Ot E78.4 OTHER HYPERLIPIDEMIA 04/07/2016 LING DÍAZ MD Ot I10 ESSENTIAL (PRIMARY) HYPERTENSION 04/07/2016 LING DÍAZ MD Ot M25.50 PAIN IN UNSPECIFIED JOINT 04/07/2016 LING DÍAZ MD Ot R41.89 OTH SYMPTOMS AND SIGNS W COGNITIVE FUNCT 04/07/2016 LING DÍAZ MD Ot R82.99 OTHER ABNORMAL FINDINGS IN URINE 04/12/2016 LING DÍAZ MD Ot I10 ESSENTIAL (PRIMARY) HYPERTENSION 04/12/2016 LING DÍAZ MD Ot R01.1 CARDIAC MURMUR, UNSPECIFIED 04/12/2016 CORWIN CARL MD W Ot R07.89 OTHER CHEST PAIN 04/16/2016 CORWIN CARL MD Ot R07.89 OTHER CHEST PAIN 05/03/2016 KARIS VALENCIA MD, Ot M25.551 PAIN IN RIGHT HIP 05/03/2016 KARIS VALENCIA MD, Ot M25.561 PAIN IN RIGHT KNEE 05/03/2016 LING DÍAZ MD Ot E03.8 OTHER SPECIFIED HYPOTHYROIDISM 05/03/2016 LING DÍAZ MD Ot E78.4 OTHER HYPERLIPIDEMIA 05/03/2016 LING DÍAZ MD Ot I10 ESSENTIAL (PRIMARY) HYPERTENSION 05/03/2016 LING DÍAZ MD Ot M25.50 PAIN IN UNSPECIFIED JOINT 05/03/2016 LING DÍAZ MD Ot R41.89 OTH SYMPTOMS AND SIGNS W COGNITIVE FUNCT 05/03/2016 LING DÍAZ MD Ot R82.99 OTHER ABNORMAL FINDINGS IN URINE 05/03/2016 LING DÍAZ MD Ot I10 ESSENTIAL (PRIMARY) HYPERTENSION 05/03/2016 LING DÍAZ MD Ot R01.1 CARDIAC MURMUR, UNSPECIFIED 05/05/2016 COURTNEY PEREYRA Ot L03.116 CELLULITIS OF LEFT LOWER LIMB 05/12/2016 COURTNEY PEREYRA Ot L03.116 CELLULITIS OF LEFT LOWER LIMB 06/01/2016 JOHN PRIETO MD Ot 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 WITHOUT COMPLICATIONS 06/01/2016 JOHN PRIETO MD Ot F03.90 UNSPECIFIED DEMENTIA WITHOUT BEHAVIORAL 06/01/2016 JOHN PRIETO MD Ot N39.0 URINARY TRACT INFECTION, SITE NOT SPECIF 06/01/2016 JOHN PRIETO MD Ot R45.4 IRRITABILITY AND ANGER 06/04/2016 KARIS VALENCIA MD, Ot M25.551 PAIN IN RIGHT HIP 06/04/2016 KARIS VALENCIA MD, Ot M25.561 PAIN IN RIGHT KNEE 06/04/2016 LING DÍAZ MD Ot E03.8 OTHER SPECIFIED HYPOTHYROIDISM 06/04/2016 LING DÍAZ MD Ot E78.4 OTHER HYPERLIPIDEMIA 06/04/2016 LING DÍAZ MD Ot I10 ESSENTIAL (PRIMARY) HYPERTENSION 06/04/2016 LING DÍAZ MD Ot M25.50 PAIN IN UNSPECIFIED JOINT 06/04/2016 LING DÍAZ MD Ot R41.89 OTH SYMPTOMS AND SIGNS W COGNITIVE FUNCT 06/04/2016 LING DÍAZ MD Ot R82.99 OTHER ABNORMAL FINDINGS IN URINE 06/04/2016 LING DÍAZ MD, Ot I10 ESSENTIAL (PRIMARY) HYPERTENSION 06/04/2016 LING DÍAZ MD Ot R01.1 CARDIAC MURMUR, UNSPECIFIED 06/04/2016 HANH PA, COURTNEY Coronel Ot L03.116 CELLULITIS OF LEFT LOWER LIMB 06/06/2016 JOHN PRIETO MD Ot 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 WITHOUT COMPLICATIONS 06/06/2016 JOHN PRIETO MD Ot F03.90 UNSPECIFIED DEMENTIA WITHOUT BEHAVIORAL 06/06/2016 JOHN PRIETO MD Ot N39.0 URINARY TRACT INFECTION, SITE NOT SPECIF 06/06/2016 JOHN PRIETO MD Ot R45.4 IRRITABILITY AND ANGER 06/07/2016 LING DÍAZ MD Ot 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 06/09/2016 LING DÍAZ MD Ot 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 06/13/2016 THANG CAMPOS, CORWIN Moreno Ot 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 06/13/2016 ANNIE CAMPOS, KARIS Ot M25.551 PAIN IN RIGHT HIP 06/13/2016 ANNIE CAMPOS, KARIS Ot M25.561 PAIN IN RIGHT KNEE 06/13/2016 LING DÍAZ MD Ot E03.8 OTHER SPECIFIED HYPOTHYROIDISM 06/13/2016 LING DÍAZ MD Ot E78.4 OTHER HYPERLIPIDEMIA 06/13/2016 LING DÍAZ MD Ot I10 ESSENTIAL (PRIMARY) HYPERTENSION 06/13/2016 LING DÍAZ MD Ot M25.50 PAIN IN UNSPECIFIED JOINT 06/13/2016 LING DÍAZ MD Ot R41.89 OTH SYMPTOMS AND SIGNS W COGNITIVE FUNCT 06/13/2016 LING DÍAZ MD Ot R82.99 OTHER ABNORMAL FINDINGS IN URINE 06/13/2016 LING DÍAZ MD, Ot I10 ESSENTIAL (PRIMARY) HYPERTENSION 06/13/2016 LING DÍAZ MD, Ot R01.1 CARDIAC MURMUR, UNSPECIFIED 06/13/2016 COURTNEY PEREYRA Ot L03.116 CELLULITIS OF LEFT LOWER LIMB 06/13/2016 LING DÍAZ MD, Ot 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 06/13/2016 LING DÍAZ MD, Ot 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 06/15/2016 CORWIN DESIR MD, Ot 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 06/24/2016 LING DÍAZ MD, Ot 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 06/27/2016 LING DÍAZ MD, Ot 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 06/28/2016 LING DÍAZ MD, Ot 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6 Automated blood platelet count 284 150- 450 Automated blood platelet mean volume measurement 8.0 6.0-9.5 Automated neutrophil percentage 72 51- 67 Lymphocytes/100 leukocytes 15 20-46 Automated monocyte percentage 12 3-11 Eosinophil count auto 1 0-4 Automated basophil percentage 0 0-2 Automated blood neutrophil count 8.7 Blood lymphocytes count (number/volume) 1.8 Automated blood monocyte count 1.4 Blood absolute eosinophil count 0.1 Basophils 0.0 Comprehensive metabolic panel - 02/16/16 14:37 Sodium measurement 104 70-110 Carbon dioxide measurement 25 22-29 Serum or plasma anion gap 15.4 3-15 BLOOD UREA NITROGEN 14 7-18 CREATININE SERUM 0.52 0.6-1.2 Brucella species antibody panel (IgG, IgM) 27 10-20 Estimated glomerular filtration rate (GFR) 134.7 Estimated glomerular filtration rate (GFR) non- 111.3 OSMOLALITY,CALCULATED 267 280-300 CALCIUM 10.0 8.8-10.8 Calculated ionized calcium measurement 4.3 3.8-4.6 BILIRUBIN,TOTAL 1.0 0.1-1.0 Serum or plasma alkaline phosphatase measurement 109 38-126 ASPARTATE AMINO TRANSFERASE 20 15-37 ALANINE AMINOTRANSFERASE 22 30-65 Serum or plasma total protein measurement 7.3 6.4-8.5 Serum or plasma albumin measurement 4.2 3.4-5.0 Serum or plasma albumin/globulin mass ratio 1.354 1.1-1.8 Complete blood count (CBC) with automated white blood cell (WBC) differential - 03/01/16 11:30 Blood automated leukocyte count 9.37 4.0 -11.0 Erythrocytes 4.19 4.00-5.00 12.0-16.0;g/dL 12.0 12.0-15.5 Hematocrit 35.30 35.00-45.00 Automated erythrocyte mean corpuscular volume 84 80-100 Mean corpuscular hemoglobin (MCH) determination 28.6 26.0-34.0 Automated erythrocyte mean corpuscular hemoglobin concentration measurement ( mass/volume) 34.0 31.0-37.0 Erythrocyte distribution width 13.6 11.8 -15.6 Automated blood platelet count 272 150- 450 Automated blood platelet mean volume measurement 8.8 6.0-9.5 Automated neutrophil percentage 75 51- 67 Lymphocytes/100 leukocytes 15 20-46 Automated monocyte percentage 8 3-11 Eosinophil count auto 1 0-4 Automated basophil percentage 1 0-2 Automated blood neutrophil count 7.1 Blood lymphocytes count (number/volume) 1.4 Automated blood monocyte count 0.8 Blood absolute eosinophil count 0.1 Basophils 0.1 Comprehensive metabolic panel - 03/01/16 11:30 Sodium measurement 106 70-110 Carbon dioxide measurement 24 22-29 Serum or plasma anion gap 18.1 3-15 BLOOD UREA NITROGEN 13 7-18 CREATININE SERUM 0.53 0.6-1.2 Brucella species antibody panel (IgG, IgM) 25 10-20 Estimated glomerular filtration rate (GFR) 131.7 Estimated glomerular filtration rate (GFR) non- 108.9 OSMOLALITY,CALCULATED 269 280-300 CALCIUM 10.5 8.8-10.8 Calculated ionized calcium measurement 4.6 3.8-4.6 BILIRUBIN,TOTAL 0.8 0.1-1.0 Serum or plasma alkaline phosphatase measurement 116 38-126 ASPARTATE AMINO TRANSFERASE 24 15-37 ALANINE AMINOTRANSFERASE 30 30-65 Serum or plasma total protein measurement 7.1 6.4-8.5 Serum or plasma albumin measurement 4.3 3.4-5.0 Serum or plasma albumin/globulin mass ratio 1.535 1.1-1.8 THYROID STIMULATING HORMONE* - 03/01/16 11:30 THYROID STIMULATING HORMONE 0.72 0.46- 4.68 LIPID PANEL - 03/01/16 11:30 Cholesterol 208 50-200 HDL Cholesterol 51 40-60 Triglycerides 124 10-150 LDL CHOLESTEROL 132 50-130 VLDL Cholesterol, calc 25 4.00-40.00 Cholesterol.total/Cholesterol.in HDL 4.1 0.0-5.0 FOLIC ACID - 03/01/16 11:30 Serum or plasma folate measurement (mass/volume) 10.9 7.0-31.4 Serum or plasma vitamin B12 measurement (mass/volume) - 03/01/16 11:30 Serum or plasma vitamin B12 measurement (mass/volume) 642 213-816 UA CULTURE IF INDICATED* - 03/01/16 11:45 COLLECTION METHOD CLEAN CATCH Color of urine by auto Yellow Urine appearance determination Clear Urine pH measurement by automated test strip 6.0 5.0 - 8.0 Specific gravity of urine by automated test strip 1.010 1.005-1.030 Urine protein measurement by test strip (mass/volume) Negative Negative Urine glucose detection by automated test strip Negative Negative Urine erythrocytes count by automated test strip (number/volume) Trace-lysed Negative Urine ketones detection by automated test strip Negative Negative Urine nitrite detection by test strip Negative Negative Urine total bilirubin detection by automated test strip Negative Negative Urine urobilinogen measurement by automated test strip (mass/volume) 0.2 0.2-1.0 Urine leukocyte esterase detection by dipstick 1+ Negative Microscopic examination of urine - 03/01/16 11:45 Urine volume measurement 12 mL Urine erythrocytes detection by automated method 2-5 Automated urine sediment leukocyte count by microscopy (number/high power field ) Bacteria Rare SQUAMOUS EPITHELIAL CELL,UR 5-10 Urine culture - 03/01/16 11:45 Urine culture VEGAS FOR RESULTS: * - NEW RESULT - RESULT WAS MODIFIED AFTER FINAL STATUS SET Complete blood count (CBC) with automated white blood cell (WBC) differential - 04/12/16 20:30 Blood automated leukocyte count 8.34 4.0 -11.0 Erythrocytes 4.16 4.00-5.00 12.0-16.0;g/dL 11.8 12.0-15.5 Hematocrit 34.70 35.00-45.00 Automated erythrocyte mean corpuscular volume 83 80-100 Mean corpuscular hemoglobin (MCH) determination 28.4 26.0-34.0 Automated erythrocyte mean corpuscular hemoglobin concentration measurement ( mass/volume) 34.0 31.0-37.0 Erythrocyte distribution width 13.7 11.8 -15.6 Automated blood platelet count 272 150- 450 Automated blood platelet mean volume measurement 8.4 6.0-9.5 Automated neutrophil percentage 59 51- 67 Lymphocytes/100 leukocytes 25 20-46 Automated monocyte percentage 13 3-11 Eosinophil count auto 2 0-4 Automated basophil percentage 1 0-2 Automated blood neutrophil count 4.9 Blood lymphocytes count (number/volume) 2.1 Automated blood monocyte count 1.1 Blood absolute eosinophil count 0.2 Basophils 0.1 Prothrombin time (PT) with international normalized ratio (INR) - 04/12/16 20: 30 Prothrombin time (PT) in platelet poor plasma by coagulation assay 11.3 10.0-12.5 INR 1.0 0.8-1.4 Comprehensive metabolic panel - 04/12/16 20:30 Sodium measurement 124 70-110 CARBON DIOXIDE 24 22-29 Serum or plasma anion gap 14.7 3-15 BLOOD UREA NITROGEN 16 7-18 CREATININE SERUM 0.52 0.6-1.2 Brucella species antibody panel (IgG, IgM) 31 10-20 Estimated glomerular filtration rate (GFR) 134.7 Estimated glomerular filtration rate (GFR) non- 111.3 OSMOLALITY,CALCULATED 267 280-300 CALCIUM 9.9 8.8-10.8 Calculated ionized calcium measurement 4.1 3.8-4.6 BILIRUBIN,TOTAL 0.6 0.1-1.0 Serum or plasma alkaline phosphatase measurement 116 38-126 ASPARTATE AMINO TRANSFERASE 23 15-37 ALANINE AMINOTRANSFERASE 31 30-65 Serum or plasma total protein measurement 7.8 6.4-8.5 Serum or plasma albumin measurement 4.3 3.4-5.0 Serum or plasma albumin/globulin mass ratio 1.228 1.1-1.8 TROPONIN I* - 04/12/16 20:30 TROPONIN I 0.014 0.010-0.080 NT-Pro BNP - 04/12/16 20:30 NT-Pro BNP 476 0-450 UA CULTURE IF INDICATED* - 06/01/16 16:35 COLLECTION METHOD CLEAN CATCH Color of urine by auto Yellow Urine appearance determination Slightly Cloudy Urine pH measurement by automated test strip 5.5 5.0 - 8.0 Specific gravity of urine by automated test strip 1.010 1.005-1.030 Urine protein measurement by test strip (mass/volume) Negative Negative Urine glucose detection by automated test strip Negative Negative Urine erythrocytes count by automated test strip (number/volume) Trace-lysed Negative Urine ketones detection by automated test strip Negative Negative Urine nitrite detection by test strip Negative Negative Urine total bilirubin detection by automated test strip Negative Negative Urine urobilinogen measurement by automated test strip (mass/volume) 0.2 0.2-1.0 Urine leukocyte esterase detection by dipstick 2+ Negative Microscopic examination of urine - 06/01/16 16:35 Urine volume measurement 12 mL Urine erythrocytes detection by automated method 2-5 Automated urine sediment leukocyte count by microscopy (number/high power field ) Bacteria 1+ SQUAMOUS EPITHELIAL CELL,UR >100 MUCOUS,URINE 1+ Urine culture - 06/01/16 16:35 Urine culture VEGAS FOR RESULTS: * - NEW RESULT - RESULT WAS MODIFIED AFTER FINAL STATUS SET Complete blood count (CBC) with automated white blood cell (WBC) differential - 06/01/16 16:55 Blood automated leukocyte count 10.88 4.0-11.0 Erythrocytes 4.24 4.00-5.00 12.0-16.0;g/dL 12.1 12.0-15.5 Hematocrit 35.60 35.00-45.00 Automated erythrocyte mean corpuscular volume 84 80-100 Mean corpuscular hemoglobin (MCH) determination 28.5 26.0-34.0 Automated erythrocyte mean corpuscular hemoglobin concentration measurement ( mass/volume) 34.0 31.0-37.0 Erythrocyte distribution width 14.2 11.8 -15.6 Automated blood platelet count 298 150- 450 Automated blood platelet mean volume measurement 8.1 6.0-9.5 Automated neutrophil percentage 77 51- 67 Lymphocytes/100 leukocytes 14 20-46 Automated monocyte percentage 8 3-11 Eosinophil count auto 0 0-4 Automated basophil percentage 1 0-2 Automated blood neutrophil count 8.4 Blood lymphocytes count (number/volume) 1.5 Automated blood monocyte count 0.9 Blood absolute eosinophil count 0.0 Basophils 0.1 Comprehensive metabolic panel - 06/01/16 16:55 Sodium measurement 122 70-110 CARBON DIOXIDE 23 22-29 Serum or plasma anion gap 15.1 3-15 BLOOD UREA NITROGEN 15 7-18 CREATININE SERUM 0.51 0.6-1.2 Brucella species antibody panel (IgG, IgM) 29 10-20 Estimated glomerular filtration rate (GFR) 137.7 Estimated glomerular filtration rate (GFR) non- 113.8 OSMOLALITY,CALCULATED 264 280-300 CALCIUM 9.9 8.8-10.8 Calculated ionized calcium measurement 4.0 3.8-4.6 BILIRUBIN,TOTAL 0.9 0.1-1.0 Serum or plasma alkaline phosphatase measurement 117 38-126 ASPARTATE AMINO TRANSFERASE 28 15-37 ALANINE AMINOTRANSFERASE 33 30-65 Serum or plasma total protein measurement 8.3 6.4-8.5 Serum or plasma albumin measurement 4.6 3.4-5.0 Serum or plasma albumin/globulin mass ratio 1.243 1.1-1.8 THYROID STIMULATING HORMONE* - 06/01/16 16:55 THYROID STIMULATING HORMONE 1.11 0.46- 4.68 FOLIC ACID - 06/02/16 11:45 Serum or plasma folate measurement (mass/volume) 11.2 7.0-31.4 Serum or plasma vitamin B12 measurement (mass/volume) - 06/02/16 11:45 Serum or plasma vitamin B12 measurement (mass/volume) 657 213-816 Qualitative serum rapid plasma reagin (RPR) test - 06/02/16 11:45 Qualitative serum rapid plasma reagin (RPR) test Non- reactive UA CULTURE IF INDICATED* - 07/23/16 15:30 COLLECTION METHOD CLEAN CATCH Color of urine by auto Dark Yellow Urine appearance determination Slightly Cloudy Urine pH measurement by automated test strip 6.0 5.0 - 8.0 Specific gravity of urine by automated test strip 1.020 1.005-1.030 Urine protein measurement by test strip (mass/volume) Negative Negative Urine glucose detection by automated test strip Negative Negative Urine erythrocytes count by automated test strip (number/volume) Trace-intact Negative Urine ketones detection by automated test strip Negative Negative Urine nitrite detection by test strip Negative Negative Urine total bilirubin detection by automated test strip Negative Negative Urine urobilinogen measurement by automated test strip (mass/volume) 0.2 0.2-1.0 Urine leukocyte esterase detection by dipstick Trace Negative Microscopic examination of urine - 07/23/16 15:30 Urine volume measurement 12 mL Urine erythrocytes detection by automated method 0-2 Automated urine sediment leukocyte count by microscopy (number/high power field ) Bacteria 1+ SQUAMOUS EPITHELIAL CELL,UR 20-50 MUCOUS,URINE 1+ DRUG SCREEN STAT - 07/23/16 15:30 Urine phencyclidine detection by screening method >25 NG/ml NEGATIVE NEGATIVE Urine benzodiazepines detection by screening method Negative Negative Urine cocaine detection Negative Negative Urine amphetamines detection by screen method > 1000 ng/mL NEGATIVE NEGATIVE Urine tetrahydrocannabinol detection by screening method >100 NG/ml Negative Negative Urine opiates detection by screening method Negative Negative Urine barbiturates detection by screening method Negative Negative Drugs of abuse panel NEGATIVE NEGATIVE Complete blood count (CBC) with automated white blood cell (WBC) differential - 07/23/16 15:56 Blood automated leukocyte count 12.48 4.0-11.0 Erythrocytes 4.33 4.00-5.00 12.0-16.0;g/dL 12.6 12.0-15.5 Hematocrit 36.70 35.00-45.00 Automated erythrocyte mean corpuscular volume 85 80-100 Mean corpuscular hemoglobin (MCH) determination 29.1 26.0-34.0 Automated erythrocyte mean corpuscular hemoglobin concentration measurement ( mass/volume) 34.3 31.0-37.0 Erythrocyte distribution width 13.7 11.8 -15.6 Automated blood platelet count 318 150- 450 Automated blood platelet mean volume measurement 7.9 6.0-9.5 Automated neutrophil percentage 75 51- 67 Lymphocytes/100 leukocytes 16 20-46 Automated monocyte percentage 8 3-11 Eosinophil count auto 1 0-4 Automated basophil percentage 1 0-2 Automated blood neutrophil count 9.3 Blood lymphocytes count (number/volume) 2.0 Automated blood monocyte count 1.0 Blood absolute eosinophil count 0.1 Basophils 0.1 TROPONIN I* - 07/23/16 15:56 TROPONIN I < 0.012 0.010-0.080 Comprehensive metabolic panel - 07/23/16 15:56 Sodium measurement 98 70-110 CARBON DIOXIDE 24 22-29 Serum or plasma anion gap 17.7 3-15 BLOOD UREA NITROGEN 18 7-18 CREATININE SERUM 0.56 0.6-1.2 Brucella species antibody panel (IgG, IgM) 32 10-20 Estimated glomerular filtration rate (GFR) 123.6 Estimated glomerular filtration rate (GFR) non- 102.2 OSMOLALITY,CALCULATED 260 280-300 CALCIUM 10.5 8.8-10.8 Calculated ionized calcium measurement 4.2 3.8-4.6 BILIRUBIN,TOTAL 0.7 0.1-1.0 Serum or plasma alkaline phosphatase measurement 114 38-126 ASPARTATE AMINO TRANSFERASE 27 15-37 ALANINE AMINOTRANSFERASE 28 30-65 Serum or plasma total protein measurement 8.5 6.4-8.5 Serum or plasma albumin measurement 4.7 3.4-5.0 Serum or plasma albumin/globulin mass ratio 1.236 1.1-1.8 THYROID STIMULATING HORMONE* - 07/23/16 15:56 THYROID STIMULATING HORMONE 3.85 0.46- 4.68 C REACTIVE PROTEIN* - 07/23/16 15:56 C REACTIVE PROTEIN* 1.10 0.0-0.9 ALCOHOL - 07/23/16 15:56 ALCOHOL < 10.0 10-80 Encounters ACCT No. Visit Date/Time Discharge Status Pt. Type Provider Facility Loc./Unit Complaint [id number] 06/01/2016 16:13:00 2016 18:44:00 DIS Emergency CONNER CAMPOS, JOHN Francisco [facility] ED [id number] 04/12/2016 20:04:00 2016 23:00:00 DIS Emergency SIDDHARTHA CAMPOS, CORWIN Rajput [facility] ED [id number] 02/16/2016 13:54:00 2015 17:36:00 DIS Emergency ANNIE CAMPOS, KARIS [facility] ED MEDICAL [id number] 10/08/2014 21:31:00 2014 22:25:00 DIS Emergency KRISTOFER CAMPOS, HAYES Moreno [facility] ED [id number] 09/22/2014 16:33:00 2014 18:28:00 DIS Emergency XAVI THACKER, [facility] ED [id number] 07/23/2016 16:09:00 Document Registration [id number] 06/13/2016 09:27:00 ACT Outpatient THANG CAMPOS, [facility] RAD I63.8 - OTHER CEREBRAL INFARCTION [id number] 06/07/2016 13:00:00 ACT Outpatient DALE GE MD , [facility] RAD 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 [id number] 06/02/2016 11:39:00 ACT Outpatient DALE GE MD , [facility] LAB DROP OFF FROM KARLIE [id number] 05/03/2016 13:49:00 ACT Outpatient HANH LUCAS, COURTNEY Coronel [facility]UC [id number] 03/11/2016 13:00:00 PEN Preadmit DALE GE MD, [facility] PT LOW BACK PAIN [id number] 03/04/2016 09:03:00 ACT Outpatient DALE GE MD , [facility] RAD HTN I10 [id number] 03/01/2016 10:57:00 ACT Outpatient DALE GE MD , [facility] LAB DROP OFF DR ZIEGLER [id number] 02/16/2016 13:40:00 ACT Outpatient ANNIE CAMPOS, [facility] EMS MEDICAL
[2016-07-23 21:45] VITALS: BP 142/76; PULSE 84; RESP 14; RESP 15; TEMP 98.6; O2SAT 97
--- NOTE | 2016-07-23 21:45 | NUR ---
Admission note 86yr old female admitted to [facility] from home with Daughter/DPOA. Patient arrived via wheelchair. Cane sent home with DPOA, patient provided walker for duration of hospital stay. Patient is up with stand by assist, has mostly steady gait, though daughter reports increase of falls at home. Patient is setup/supervision with cares, has bright and happy affect at this time. Hygiene appropriate. Small rash to sacral area, that appears to irritated due to patient scratching. Patient has order for creme to be applied to rash TID. Patient and family oriented to unit, unit routines, and policies. Valuables sent home with family, except a bottle with small change in nurse lock up for patient to be able to get a soda from vending machines. Patient denies use of tobacco or alcohol.
[2016-07-23] MEDS ORDERED: PRN ORDERS MC (23:30)
[2016-07-23] MEDS ORDERED: HALOPERIDOL 5 MG/ML INJECTION IM PRN (23:30)
[2016-07-23] MEDS ORDERED: LORAZEPAM INTENSOL 1mg/0.5ml ORAL SOLUTION SL PRN (23:30)
[2016-07-23] MEDS ORDERED: LORAZEPAM 2 MG/ML INJECTION IM PRN (23:30)
[2016-07-23] MEDS ORDERED: HALOPERIDOL 1 MG/0.5 ML ORAL LIQUID PO PRN (23:30)
[2016-07-23] MEDS ORDERED: HALOPERIDOL 0.5 MG TABLET PO PRN (23:30)
[2016-07-23] MEDS ORDERED: LOSA50TA52 PO (23:53)
[2016-07-23] MEDS ORDERED: LEVO100T4 PO (23:53)
[2016-07-23] MEDS ORDERED: AMLO5TAB2 PO (23:53)
[2016-07-23] MEDS ORDERED: GABA-336 PO (23:53)
[2016-07-23] MEDS ORDERED: MAGN400C PO (23:53)
[2016-07-23] MEDS ORDERED: IBUP-1724 PO (23:53)
[2016-07-24] MEDS ORDERED: ACYC5CRE2 TOP (00:03)
[2016-07-24] MEDS: IBUPROFEN 200 MG TABLET PO SCH ×3 (00:38→19:23)
[2016-07-24] MEDS: GABAPENTIN 100 MG CAPSULE PO SCH ×4 (00:39→19:24)
[2016-07-24] MEDS: ACYCLOVIR 5% OINT 5gm TOP SCH ×4 (00:39→20:42)
--- NOTE | 2016-07-24 01:15 | NUR ---
slums/etoh audit/ams Pt scored a 21 on slums, pt does not drink etoh, pt does not smoke, aims score is zero.
[2016-07-24 01:48] VITALS: Ht 154.9 cm; Wt 63.0 kg
[2016-07-24] MEDS: TROLAMINE SALICYLATE 85 GM TUBE TOP PRN ×3 (04:16→20:42)
[2016-07-24] MEDS: LEVOTHYROXINE 100 MCG TABLET PO SCH (05:34)
--- NOTE | 2016-07-24 05:50 | NUR ---
Summary patient has had bright and happy upon arrival. Patient was starting to become anxious prior to family leaving due to family was going to take purse home. Spoke with DPHITESH about patient having her purse due to comfort and so patient would not feel like all her belongings were being taken away. DPOA agreed to patient keeping her purse. This nurse went thru purse with DPHITESH and Patient, All important documents and valuables were taken out and sent home with DPHITESH. Purse is at patient beside containing 1 chapstick, 1 lipstick, reading glasses, a small plastic flashlight, a picture, and crumpled up notes/tissues. When patient was told she could keep her purse with remaining belongings she visibly calmed and affect brightened. Patient expressed concern that she feels as soon as people find out she has dementia that she loses all rights and independence. Patient was reassured that she will maintain her rights, dignity, and be treated with respect. Patient was able to be reassured by conversation with this RN. Patient and family were provided with education about unit and routines. Family was very thankful for staffs help. Patient visited with staff for most of the night before trying to sleep at 0130, patient fell asleep at 0200 for 30min, before waking up with complaints of leg cramps. Patient stretched and rubbed muscles, attempted to walk a short period to stretch and relax before laying back down. Once back in bed patient slept from 0330 to 0545. Patient again woke up complaining of leg cramps. Staff is currently in room with patient, helping patient stretch and calm muscles.
[2016-07-24 06:18] VITALS: PULSE 84; RESP 15; O2SAT 97
--- NOTE | 2016-07-24 07:03 | GENHPPDOC ---
[facility] 07/24/16 Time of Service: 07:00 Start Time: 07:00 Stop Time: 07:45 >50% of this visit spent in counseling/coordination care. Chief Complaint: recent increase of paranoia and associated behaviors History of Present Illness 86 year old white female who was sent from ER in [place] where she was brought from home by family due to ongoing increased confusion and agitation associated with dementia. She was reportedly diagnosed with dementia prior while living in [place] but has recently moved to live with her daughter and son in law in [place]. They report she varies in her willingness and ability to work with them in the home. She is reportedly on a waiting list for halfway. Has some moments of lucidity and can cover her deficits at times. They report she has vivid visual hallucinations they report. Prior to admission, her family found her having pushed out her screen/window in her room and was trying to elope back to [place]. Last night she did not sleep well, complained of some pain for which hospitalist ordered Aspercream. She has not been aggressive with staff here. She has been pleasant and cooperative with staff here thus far. Eats well, snacks frequently. She is continent of urine and bowel. Depression: irritable, poor concentration Nasima: irritability, risky behavior Psychosis: visual Dementia: memory impairment, poor executive function. Anxiety: worries CD: aggressive to people Past Medical History Unable to Obtain Due to: Dementia Comments limited history at this time as pt is asleep and drowsy this morning after late admission, but resting peacefully. Past Medical History Hypertension Hypothyroidism Hx of TIA Surgical History Patient's Surgical History: Appendectomy Tonsillectomy Hysterectomy Current Medications Home Meds Reported Medications Acyclovir (Zovirax) 5 Gm Cream..g., 1 APPLIC TOP TID, #5 GM 07/24/16 Magnesium Oxide (Magnesium) 400 Mg Capsule, 1 CAP PO DAILY, #30 CAP 3 Refills 07/23/16 Losartan Potassium (Losartan Potassium) 50 Mg Tablet, 50 MG PO DAILY, TAB 07/23/16 Levothyroxine Sodium (Synthroid) 100 Mcg Tablet, 100 MCG PO ACB, TAB BEST IF TAKEN BEFORE BREAKFAST 07/23/16 Ibuprofen (Ibuprofen) 200 Mg Tablet, 200 MG PO BID, TAB 07/23/16 Gabapentin (Gabapentin) 100 Mg Capsule, 100 MG PO TID, CAP 07/23/16 Amlodipine Besylate (Amlodipine Besylate) 5 Mg Tablet, 5 MG PO DAILY, TAB 07/23/16 Allergies: Coded Allergies: Penicillins (Verified Allergy, Severe, ANAPHYLACTIC SHOCK, 07/23/16) codeine (Verified Allergy, Unknown, 07/23/16) Uncoded Allergies: mycin (Allergy, Unknown, 07/23/16) Family History Family History: unable to obtain at this time Vaccines current Social History Smoking Status: Never smoker Does patient use chewing tobac: No Second Hand Exposure: No Alcohol Intake: none Marital Status: Housing: house Household Members: significant other Service: No Current Occupation: retired Advance Directives: Yes DPOA for Healthcare Only, Yes Full Code Social History Comments retired white female who lives w her daughter in [facility]. awaiting placement to [place] prior to admission here to hospital. no known substance abuse history Strengths: Remains ambulatory, supportive family, resources for NH. Weaknesses: cognitive decline and subsequent familial strife. Review of Systems Unable to Obtain Comments pt. asleep and drowsy, unable to obtain complete ROS at this time Neurological General: memory disturbances Psychiatric Psychiatric: anxiety, emotional instability, hallucinations, irritability, memory impairment [facility] Exam Vitals Vital Signs Date Time Temp Pulse Resp B/P Pulse Ox O2 Delivery O2 Flow Rate FiO2 07/24/16 06:18 84 15 97 Room Air 07/23/16 21:45 98.6 142/76 Physical examination performed by the hospitalist. Height (Feet): 5 Height (Inches): 1.00 Mental Status Exam Muscle Strength/Tone: Weak Dressing: Casual Grooming: Fair Attitude: Cooperative Motor Activity: Normal Eye Contact: Good Speech: Normal Volume: Normal Sensory: Confused Orientation: Oriented to person Mood: Irritable, Anxious Thought Organization: Confused Thought Content: Ruminations Current Hallucinations: Visual Attention Span/Concentration: Distractable Memory: Poor-recent Suicidal Ideation: None Homicidal Ideation: None Insight: Poor Judgment: Poor Impulse Control: Poor Assessment and Plan (1) Major neurocognitive disorder due to Alzheimer's disease, probable, with behavioral disturbance Assessment: likely, rule out vascular dementia, does have hx of TIAs so may be mixed presentation also. also consider lewy body given the reportedly strong visual hallucination component. -Admit to [facility] for safety and further psychiatric evaluation. -Rule delirum. -Hospitalist consulted as well for medical follow. -Standard PRNs for now, may need to reconsider if she has any adverse effects from anti-psychotics. -Consider trial of Seroquel, will observe her behavior on unit without medications first. -Will likely need 24 hour care upon discharge. AMANDA CAMERON MD July 24, 2016 06:55
[2016-07-24 07:46] LABS: THYROID STIM HORMONE-TSH 4.3 MIU/L (0.47-4.68)
[2016-07-24 08:00] VITALS: BP 140/81; PULSE 73; RESP 18; TEMP 96.8; O2SAT 97
[2016-07-24 08:08] LABS: PREALBUMIN 18.1 MG/DL (17.6-36.0)
[2016-07-24] MEDS: MAGNESIUM OXIDE 400 MG TABLET PO SCH (09:21)
[2016-07-24] MEDS: AMLODIPINE 5 MG TABLET PO SCH (09:21)
[2016-07-24] MEDS: LOSARTAN 50 MG TABLET PO SCH (09:21)
--- NOTE | 2016-07-24 09:32 | HPPDOC ---
HPI - Adult Date DATE: 07/24/16 TIME: 09:18 General Chief Complaint: Neurocognitive disorder with behavior disturbance History of Present Illness Patient is an 86-year-old female who resides with her daughter in [place]. She has been displaying increased to behaviors recently. It was reported. Patient kicked a screen out of a window and was found hanging [facility] out while attempting to leave. She has had increased aggression towards family members, throwing a phone at her granddaughter yesterday. Due to this increase behaviors. She was taken to [place] emergency room for medical evaluation. Laboratory studies were reviewed. White count was found to be 12.4, hemoglobin 12.6, hematocrit 36.7, platelet 318. Sodium was slightly low at 133, potassium 4.7, BUN 18, creatinine 0.5. EtOH was negative, troponin was negative, TSH 3.85. Urinalysis showed a trace of leukocyte esterase with 1+ bacteria, otherwise unremarkable. Urine drug screen was negative. Given her need for further psychiatric evaluation and treatment. [facility] and accepted patient for inpatient admission. Margoth is seen this morning in her room while getting ready for the day. She is alert and pleasant during examination. She reports having "Alcides horse" in bilateral lower extremities this mornign. She reports she has been having difficult with this for some time. Otherwise she denies pain or shortness of breath. Past Medical History Past Medical History Hypertension Hypothyroidism Hx of TIA Surgical History Patient's Surgical History: Appendectomy Tonsillectomy Hysterectomy Current Medications Home Meds Reported Medications Acyclovir (Zovirax) 5 Gm Cream..g., 1 APPLIC TOP TID, #5 GM 07/24/16 Magnesium Oxide (Magnesium) 400 Mg Capsule, 1 CAP PO DAILY, #30 CAP 3 Refills 07/23/16 Losartan Potassium (Losartan Potassium) 50 Mg Tablet, 50 MG PO DAILY, TAB 07/23/16 Levothyroxine Sodium (Synthroid) 100 Mcg Tablet, 100 MCG PO ACB, TAB BEST IF TAKEN BEFORE BREAKFAST 07/23/16 Ibuprofen (Ibuprofen) 200 Mg Tablet, 200 MG PO BID, TAB 07/23/16 Gabapentin (Gabapentin) 100 Mg Capsule, 100 MG PO TID, CAP 07/23/16 Amlodipine Besylate (Amlodipine Besylate) 5 Mg Tablet, 5 MG PO DAILY, TAB 07/23/16 Allergies: Coded Allergies: Penicillins (Verified Allergy, Severe, ANAPHYLACTIC SHOCK, 07/23/16) codeine (Verified Allergy, Unknown, 07/23/16) Uncoded Allergies: mycin (Allergy, Unknown, 07/23/16) Family History Family History: Noncontributory Social History Smoking Status: Never smoker Substance Use Type: does not use Alcohol Intake: none Housing: house Advance Directives: Yes DPOA for Healthcare Only, Yes Full Code Social History Comments PCP Dr Nikolas Gardner Review of Systems Musculoskeletal General: spasm (bilateral lower ext cramping) All Other Systems All Other Systems: Reviewed (remainder of 10-point ROS Neg.) Physical Exam General General Nourishment: well nourished, well developed Vital Signs Vital Signs Date Time Temp Pulse Resp B/P Pulse Ox O2 Delivery O2 Flow Rate FiO2 07/24/16 06:18 84 15 97 Room Air 07/23/16 21:45 98.6 142/76 Height (Feet): 5 Height (Inches): 1.00 Eyes Brief: FOUND: PERRL ENMT Brief: FOUND: mucosa moist, normal dentition, NOT FOUND: pharnyx erythema Respiratory Brief: FOUND: clear all whyte, equal bilaterally, NOT FOUND: wheezes Cardiovascular (brief) Cardiac Brief: FOUND: regular rate, regular rhythm, NOT FOUND: murmur, pedal edema Abdomen (brief) Abdominal Brief: FOUND: BS normo active x4, soft, NOT FOUND: distended, tender Musculoskeletal (brief) Musculoskeletal Brief: NOT FOUND: tenderness Integumentary (brief) Integumentary Brief: FOUND: dry, pink, warm Neurologic (brief) Neurological Brief: FOUND: cranial 2-12 intact, motor ( Moves all extremities equally) Neurologic RN Documented GCS Eye Opening: Verbal: Motor: Total: Psychiatric (brief) FOUND: alert, normal affect, oriented Laboratory Laboratory Tests Test 07/24/16 06:50 07/24/16 06:51 Hemoglobin A1c 6.0% Prealbumin 18.1MG/DL Thyroid Stimulating Hormone (TSH) 4.30MIU/L Assessment & Plan Problems: (1) Cognitive and behavioral changes Status: Acute (2) Cramps of lower extremity Status: Acute (3) HTN (hypertension) Status: Chronic (4) Hypothyroidism Status: Chronic (5) History of TIAs Status: Resolved Plan/Intensity of Service Agree with [facility] to [facility] for further [facility] evaluation and treatment Given lower extremity cramping. Will check BMP and magnesium level now. She does take a oral magnesium supplementation Monitor blood pressure and continue on Norvasc and Cozaar Encourage patient to participate in unit activities and provide a safe environment. The hospitalist services will continue to follow patient and medical management of her existing comorbidities during [facility] stay [facility]. At time of discharge medical care will return to her primary care provider, Dr.Trenton Gardner Code Status Full Code Hospital Course Summary Disclaimer The hospital course summary below is not to be considered part of the above Progress Note. GUS SIMMONS APRN July 24, 2016 09:25
[2016-07-24 09:36] LABS: ANION GAP 12 MEQ/L (5-15); BUN/CREATININE RATIO 33 RATIO (6-26); CALCIUM 10.1 MG/DL (8.4-10.2); CHLORIDE 100 MEQ/L (98-107); CO2 - CARBON DIOXIDE 23 MEQ/L (22-30); CREATININE 0.6 MG/DL (0.7-1.2); GLOMERULAR FILTRATION RATE 94; GLUCOSE 120 MG/DL (65-110); MAGNESIUM 2.1 MG/DL (1.6-2.3); POTASSIUM 4.4 MEQ/L (3.6-5); SODIUM 135 MEQ/L (134-144)
[2016-07-24 10:05] VITALS: BP 140/81; PULSE 73; RESP 18; TEMP 96.8; O2SAT 97
--- NOTE | 2016-07-24 15:08 | NUR ---
SLEEP NOTE Patient woe up at 0815 this morning, she woke up a couple of times at night due to leg cramps.
--- NOTE | 2016-07-24 15:10 | NUR ---
STATUS Patient patient has been in a pleasant mood cooperative with cares and compliant with medications, Patient speech is clear and appropriate she is able to make needs known. No inappropriate behaviors noted, no hallucinations noted, no delusion noted. Patient has been complaining of having narendra horse cramps on her left leg this morning, Aspercreme was applied, foot was massage and patient states that was very helpful.
[2016-07-24 16:02] VITALS: BP 146/77; PULSE 80; RESP 16; TEMP 98.4; O2SAT 99
--- NOTE | 2016-07-24 17:39 | NUR ---
SUMMARY Patient has been pleasant, cooperative with cares and compliant with medications, she allows staff to helps with ADL's and cares, no aggressive behaviors noted, no hallucinations or delusions noted. Patient speech is clear and appropriate, she is able to verbalize needs, steady gait, she has been in the day room and dining room most of the shift, she socialized well with other patients and staff, patient has been complaining of having Alcides horse cramps all over her body but mainly on her right leg throughout the day, Aspercreme was applied twice today, her foot was massaged twice, heating pad was applied to her leg as well. After leg massage patient states it helped relieve the pain, and pain was gone afterwards. Patient denies needs or concerns at the moment.
[2016-07-24 19:30] VITALS: BP 143/75; PULSE 80; RESP 18; TEMP 97.2; O2SAT 97
[2016-07-24 20:00] VITALS: PULSE 80; RESP 16
--- NOTE | 2016-07-24 20:42 | NUR ---
prn given Pt having leg cramps in rt ankle, pt describes pain as "twisting inside the ankle" pt ambulated to room with front wheeled walker, pt Aspercreme applied and hot pack placed on pt legs, will monitor pt
--- NOTE | 2016-07-24 23:30 | NUR ---
bedtime Pt went to bed at 23:15, pt went to sleep at 23:30, pt slept none on day shift, pt is in bed with 2 bed rails up and bed alarm on.
--- NOTE | 2016-07-25 00:05 | NUR ---
status note Pt is alert and oriented to person and time, pt states she is in a medical facility, pt unable to remember the town. Pt has been cooperative with meds, cares, and vitals. Pt took meds whole, pt has had no aggression or hallucinations. Pt has chronic pain "narendra horses" aspartcream applied to pt legs, warm pack applied, pt took Motrin with bed time meds. Pt has been ambulating hallways with FWW and staff. will monitor pt.
[2016-07-25] MEDS ORDERED: ACETAMINOPHEN 325 MG TABLET PO PRN (02:30)
[2016-07-25] MEDS: ACETAMINOPHEN 325 MG TABLET PO PRN (02:30)
--- NOTE | 2016-07-25 02:30 | NUR ---
prn given Pt woke up suddenly, pt having increased rt ankle pain, rates pain 8/, pt ambulated and room and pt assisted to the bathroom, pt states pain is "twisting rt ankle pain" pt assisted back to bed, offered to ambulate pt. Pt states that "I'm cold and want to go back to bed". Pt given 2 Tylenol's for pain, pt is now resting in bed with 2 bed rails up and bed alarm on.
[2016-07-25 02:37] LABS: FOLATE 11.4 NG/ML (2.76-20)
--- NOTE | 2016-07-25 03:33 | NUR ---
prn update Pt is sleeping in bed, with 2 bed rails up and bed alarm on.
--- NOTE | 2016-07-25 03:34 | NUR ---
Chart Check 24 hour chart check completed
[2016-07-25] MEDS: TROLAMINE SALICYLATE 85 GM TUBE TOP PRN ×2 (05:08→12:41)
--- NOTE | 2016-07-25 05:08 | NUR ---
prn given Pt woke up having punching/aching pain in her rt leg from knee to ankles, Aspercreme applied and leg massage done for comfort, pt assisted to the bathroom and back to bed, heating pad applied, pt is in bed with 2 bed rails up and bed alarm on.
[2016-07-25] MEDS: LEVOTHYROXINE 100 MCG TABLET PO SCH (05:09)
--- NOTE | 2016-07-25 06:01 | NUR ---
prn note Pt is sleeping in bed with 2 bed rails up and bed alarm on.
--- NOTE | 2016-07-25 06:26 | NUR ---
shift summary Pt is alert and oriented x2, pt is up with assist x1 and front wheeled walker, pt has been continent during night coordinator, last bowel movement on 07/24/16. Pt has had no aggression or hallucinations. Pt spoke with daughter Jacqueline and her sister Chrissy last night both calls went fine. Pt smiling while talking to family on the phone. Pt has had leg and back cramps several times during the night. Pt received Aspercreme at 20:42 and 05:08 with leg and back massage. Pt woke up at 02:30 crying complaining of rt leg twisting pain (see previous note). Pt is currently in bed sleeping with 2 bed rails up and bed alarm on. will monitor pt.
--- NOTE | 2016-07-25 09:00 | NUR ---
SLEEP 5.75 Hours Pt went to bed at 2315 last night and got out of bed at 0730. Pt slept a total of 5.75 hours as documented on the 15 minute observation forms.
--- NOTE | 2016-07-25 09:15 | PNPDOC ---
LETA FRASER VENUE COORDINATOR 07/25/16 0908: Subjective Date DATE: 07/25/16 TIME: 09:05 Subjective Margoth was completing her ADLs, getting ready for the day. She was pleasant, though complained of several painful areas - first, her right foot/leg cramped up a couple times during the night and one of the night staff massaged it, which helped. Nurses also applied Aspercreme, which also was helpful. She also noted right knee pain and right thigh pain, as well as right back pain. She states it feels like "a nerve". She has a hx of getting cramps, but usually her leg and her knee don't bother her. At home she takes a couple ibuprofen, "nothing strong". I commented on her murmur on exam, and she told me that she' s had it for a long time, but she doesn't know what her diagnosis is. Objective Vital Signs Vital signs Vital Signs Date Time Temp Pulse Resp B/P Pulse Ox O2 Delivery O2 Flow Rate FiO2 07/24/16 20:00 80 16 07/24/16 19:30 97.2 143/75 97 Room Air Height (Feet): 5 Height (Inches): 1.00 Weight (Kilograms): 60.200 General General Appearance: Alert, Orientated x 3, Well Nourished, Well Developed, No Acute Distress Eyes (Brief) Eyes: FOUND: PERRL, NOT FOUND: scleral icterus ENMT (Brief) ENMT: FOUND: mucosa moist, NOT FOUND: pharnyx erythema Respiratory (Brief) Respiratory: FOUND: clear all whyte, equal bilaterally Cardiovascular (Brief) Cardiac: FOUND: murmur, regular rate, regular rhythm Abdomen (Brief) Abdominal: FOUND: BS normo active x4, distended (mild), soft, NOT FOUND: tender Extremities (Brief) Extremity : Extremity Finding: NOT FOUND: edema Musculoskeletal (Brief) Musculoskeletal: NOT FOUND: tenderness (right calf and thigh are nontender) Comments bears weight on right leg and ambulates with walker - no evidence of discomfort Integumentary (Brief) Integumentary: FOUND: dry, pink, warm Psychiatric (Brief) Psychiatric: FOUND: alert, attentive, normal affect, oriented Laboratory Laboratory Laboratory Tests 07/24/16 06:50 Assessment & Plan Problems: (1) Cognitive and behavioral changes Status: Acute (2) Cramps of lower extremity Status: Acute (3) HTN (hypertension) Status: Chronic (4) Hypothyroidism Status: Chronic (5) History of TIAs Status: Resolved Plan/Intensity of Service Labs reviewed - hgb A1c 6%; TSH, prealbumin were normal. B12 was low end of normal range - will start replacement. RPR and lipids pending. UA and CBC done at outside facility were not impressive. BP moderately elevated since arrival - prefer to monitor for a couple more days before recommending any changes to antihypertensives. Supportive care for leg cramps/pain - Aspercreme, icy hot, ibuprofen, ice bag or heat. Psychiatric admission note reviewed: r/o vascular dementia, lewy body dementia, delirium. Code Status Full Code Hospital Course Summary Disclaimer The hospital course summary below is not to be considered part of the above Progress Note. Hospital Course Summary 07/24/16 Agree with admission to [facility] for further [facility] evaluation and treatment Given lower extremity cramping. Will check BMP and magnesium level now. She does take a oral magnesium supplementation Monitor blood pressure and continue on Norvasc and Cozaar Encourage patient to participate in unit activities and provide a safe environment. The hospitalist services will continue to follow patient and medical management of her existing comorbidities during [facility]. At time of discharge medical care will return to her primary care provider, Dr.Trenton Gardner 07/25/16 Labs reviewed - hgb A1c 6%; TSH, prealbumin were normal. B12 was low end of normal range - will start replacement. RPR pending. UA and CBC done at outside facility were not impressive. BP moderately elevated since arrival - prefer to monitor for a couple more days before recommending any changes to antihypertensives. Supportive care for leg cramps/pain - Aspercreme, icy hot, ibuprofen, ice bag or heat. Psychiatric admission note reviewed: r/o vascular dementia, lewy body dementia, delirium. INES PARRISH MD 07/25/16 2002: Assessment & Plan Problems: (1) Cognitive and behavioral changes Status: Acute (2) Cramps of lower extremity Status: Acute Assessment & Plan: Patient seen and examined independently on the same day. Read and agree with Leta Hitchcock examine and assessment. Will repeat potassium level and at a magnesium level to this for the morning. Considering supplemental low-dose oral potassium and magnesium see if this helps with symptoms (3) HTN (hypertension) Status: Chronic (4) Hypothyroidism Status: Chronic (5) History of TIAs Status: Resolved LETA FRASER APRN July 25, 2016 09:08 INES PARRISH MD July 25, 2016 20:02
[2016-07-25 09:30] VITALS: BP 143/71; PULSE 78; RESP 16; TEMP 97.9; O2SAT 99
[2016-07-25] MEDS: ACYCLOVIR 5% OINT 5gm TOP SCH ×3 (09:35→21:40)
[2016-07-25] MEDS: MAGNESIUM OXIDE 400 MG TABLET PO SCH (09:36)
[2016-07-25] MEDS: AMLODIPINE 5 MG TABLET PO SCH (09:36)
[2016-07-25] MEDS: GABAPENTIN 100 MG CAPSULE PO SCH ×3 (09:36→21:40)
[2016-07-25] MEDS: IBUPROFEN 200 MG TABLET PO SCH ×2 (09:37→21:40)
[2016-07-25] MEDS: LOSARTAN 50 MG TABLET PO SCH (09:37)
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
--- NOTE | 2016-07-25 13:32 | NUR ---
Status Pt was cooperative with assessment, cares and medications. Pt eats well and is able to make her needs known. Pt states that she has intermittent pain going down her right side. she states that she has always gotten "narendra horses" and does not know why. Pt wanted to lay back down after breakfast and rested for about an hour before waking in intense pain. Pt was able to walk off the pain and her legs were rubbed with icy hot. Pt has had no hallucinations and no exit seeking behaviors. Pt has been compliant with all medications and has been pleasant so far this shift. Pt is currently in the day room watching television with staff present.
--- NOTE | 2016-07-25 15:07 | NUR ---
BIJAN CM SPOKE WITH PT DPOA/DAUGHTER KEVIN. CM EXPLAINED ROLE AND PROVIDED CONTACT INFORMATION. KEVIN STATES THAT SHE SILVIA LIKE PT TO D/.C TO [facility]. PT IS ON WAITING LIST. KEVIN AWARE THAT CM WILL REACH OUT TO THEM BIJAN DID ASK THAT KEVIN CONSIDER ANOTHER PLACE FOR A SECOND OPTION DUE TO ANTICIPATED LOS ON THE UNIT. KEVIN WILL CONTACT CM WITH ALTERNATIVE OPTION. KEVIN AWARE TO CONTACT CM IF NEEDS ARISE.
--- NOTE | 2016-07-25 16:30 | NUR ---
SPEAR FISHER--ADVANCE DIRECTIVE Shannan He and [facility] met with pt's daughter/DPOA-HC (Jacqueline) to review contents of TPOPP document. The daughter is aware her mother wants to be DNR . She also checked the Limited Additional Intervention box but marked out "suction" treatment. Pt. is to be DNR.
--- NOTE | 2016-07-25 16:35 | NUR ---
MANAGER STEEL--PM GROUP Pt. was present and actively participated in psychoeducational group facilitated by [facility]. Topic was on importance of family relationships and keys to good communication. Pt. was alert, Ox2 (did not assess for date), calm, with pleasant mood. She is [place] and c/o not being able to hear as well as she should with her hearing aids. Identified ways families can be helpful and supportive to overall well being of patient. Talked about importance of being respectful and willing to listen. Talked about how yelling is non-productive. Patient sat forward in her chair in order to hear what was being said. Finished group by listening to music. Identified it as a means to help calm and soothe people when they are feeling discouraged. Pt. mentioned she enjoys listening to jitterbug music. She held hands with another patient and danced while seated in her chair. Patient smiled frequently and encouraged the other patient dancing.
--- NOTE | 2016-07-25 18:15 | NUR ---
Summary Patient was pleasant and cooperative throughout the shift. She had no PRN medications and no delusional behaviors noted. Pt ate all of her meals and was up in the day room for the entire shift. Pt had no verbal or physical aggression and is currently in the day room talking with family.
--- NOTE | 2016-07-25 18:38 | GENPN ---
Generations Subjective Date DATE: 07/25/16 TIME: 18:29 Subjective/Severity of Illness Medications Current Medications Medications (Trade) Dose Ordered Sig/Ross Start Time Stop Time Status Last Admin Dose Admin Miscellaneous Medication (May use PRN orders) 1 PRN PRN 07/23/16 23:30 Haloperidol (Haldol) 0.5 mg Q6H PRN 07/23/16 23:30 Lorazepam (Ativan) 0.5 mg Q6H PRN 07/23/16 23:30 Lorazepam (Ativan) 0.5 mg Q6H PRN 07/23/16 23:30 Haloperidol Lactate (Haldol 5 Mg/ml Inj) 0.5 mg Q6H PRN 07/23/16 23:30 Lorazepam (Ativan Intensol) 0.5 mg Q6H PRN 07/23/16 23:30 Haloperidol (Haldol Liquid) 0.5 mg Q6H PRN 07/23/16 23:30 Acyclovir (Zovirax) 1 applic TID 07/24/16 09:00 07/25/16 17:47 1 APPLIC Amlodipine Besylate (Norvasc) 5 mg DAILY 07/24/16 09:00 07/25/16 09:36 5 MG Gabapentin (Neurontin) 100 mg TID 07/24/16 09:00 07/25/16 17:47 100 MG Ibuprofen (Motrin) 200 mg BID 07/24/16 09:00 07/25/16 09:37 200 MG Levothyroxine Sodium (Synthroid) 100 mcg ACB 07/24/16 06:30 07/25/16 05:09 100 MCG Losartan Potassium (COZAAR 50 mg) 50 mg DAILY 07/24/16 09:00 07/25/16 09:37 50 MG Magnesium Oxide (Magox) 400 mg DAILY 07/24/16 09:00 07/25/16 09:36 400 MG Trolamine Salicylate (Aspercreme) 1 applic Q4H PRN 07/24/16 03:15 07/25/16 12:41 1 APPLIC Acetaminophen (Tylenol Regular Strength) 650 mg Q5H PRN 07/25/16 02:30 07/25/16 02:56 DC Acetaminophen (Tylenol Regular Strength) 650 mg Q3-4H PRN 07/25/16 03:00 07/25/16 02:30 650 MG Cyanocobalamin (Vit. B-12) 500 mcg DAILY 07/26/16 09:00 Subjective Patient seen, chart reviewed and vitals noted to be stable. Patient was admitted on 07/24/16 for visual hallucination, agitation and impaired cognition. She scored 22/30 on SLUM and she has an 11th grade education. Patient was seen to be oriented to place, time and person and feels like she is here to have her knee checked. Patient was able to have coherent conversation , but family reports that she has had history of impaired memory since the last decade and there has been associated impaired executive function and inability to handle activities requiring complex attention. Patient admits to having fair appetite and sleeps well at night. Family wants a house worker general to look at her nail. Sleep: 5.75 hours Time of Service: 17:00 Start Time: 17:00 Stop Time: 17:30 Care >50% of this visit spent in counseling/coordination care. Generations Exam Vitals Vital Signs Date Time Temp Pulse Resp B/P Pulse Ox O2 Delivery O2 Flow Rate FiO2 07/25/16 09:30 97.9 78 16 143/71 99 Room Air Physical examination performed by the hospitalist. Height (Feet): 5 Height (Inches): 1.00 Mental Status Exam Muscle Strength/Tone: Weak Dressing: Casual Grooming: Good Attitude: Cooperative Motor Activity: Normal Eye Contact: Good Speech: Normal Volume: Normal Rhythm: Appropriate Rhythm Sensory: Alert Orientation: Oriented to person, Oriented to place, Oriented to time Mood: Neutral Affect: Congruent Rate of Thoughts: Appropriate Rate Thought Organization: Organized Associations: Intact Abstract Reasoning: Impaired, concrete Computation: Approp. for Edu. Level Thought Content: Paranoia (by history) Attention Span/Concentration: Normal Language: Naming Intact Fund of Knowledge: Appropriate Memory: Poor-immediate Suicidal Ideation: None Homicidal Ideation: None Insight: Poor Judgment: Poor Impulse Control: Poor Assessment and Plan (1) Major neurocognitive disorder due to Alzheimer's disease, probable, with behavioral disturbance Assessment: likely, rule out vascular dementia, does have hx of TIAs so may be mixed presentation also. also consider lewy body given the reportedly strong visual hallucination component. 07/25/16: Observe patient on the unit. Wen/CATRINA palomino and consult Podiatry for her nails. KRISTY LAMBERT MD July 25, 2016 18:36
[2016-07-25 20:00] VITALS: BP 148/82; PULSE 91; RESP 18; TEMP 97; O2SAT 99
[2016-07-25] MEDS: CYCLOBENZAPRINE 5 MG TABLET PO PRN (21:38)
--- NOTE | 2016-07-25 22:50 | NUR ---
Status/New medication Pt was visiting with staff and other pt and her in the DR at start of shift. She is a/o x3, up with walker and SBA, she was cooperative with assessment, VS and medications. At 2100 Dr. Mcgarry was contacted via [employer] text concerning cramps in her legs. Order received for Flexeril 5 mg TID PRN, first dose was given tonight with HS medication. Pt sat in the DR after getting ready for bed but wanted to sleep out in the DR d/t the cramping in her legs. Pt was reminded of the new medication and what it was for and since she had already been falling asleep in the DR it would be best to try going to sleep in her bed. Pt agreed. She has been cooperative with cares and no behaviors. It does take her a lot more time to get ready than most d/t being particular about how cares are completed. Pt in bed at 2230. Bed locked and in low position, SR up x 2, call light in reach and bed alarm is on and functioning. Will continue to monitor.
--- NOTE | 2016-07-26 00:52 | NUR ---
Chart Check 24 hour chart check completed
[2016-07-26 00:58] LABS: RISK FACTOR 4.7 RATIO (0-4.0)
--- NOTE | 2016-07-26 03:00 | NUR ---
PRN Ativan/Tylenol Pt woke up crying out in pain d/t BLEs leg cramps. When RN went in to check on pt she started c/o having a "gas trap" and started making herself burp almost to the point of getting sick. Pt anxious, restless having to touch anything in sight she can reach. Pt was asked if she would like to have something to help her relax. Pt said " I'll take anything that will help me". Pt was given Ativan 0.5 mg and Tylenol 650 mg to help with cramping in legs and anxiety. Pt taken to the bathroom at this time. Will continue to monitor.
[2016-07-26] MEDS: ACETAMINOPHEN 325 MG TABLET PO PRN ×2 (03:01→21:36)
[2016-07-26] MEDS: LORAZEPAM 0.5 MG TABLET PO PRN (03:01)
[2016-07-26] MEDS: LEVOTHYROXINE 100 MCG TABLET PO SCH (05:45)
--- NOTE | 2016-07-26 06:29 | NUR ---
Summary/Sleep Pt went to bed at 2230 and fell asleep at 2300, sleeping until MDN. Pt up d/t cramps in her legs. Pt went to BR, awake in bed until 0015, she slept for 30 minutes then awake for 45 minutes and back to sleep at 0200 until 0300 when pt woke up again d/t leg cramps. During this time pt was making herself burp almost to the point of making herself sick. Pt was encouraged to lie on her L side to help with discomfort. Pt stated she would take anything that would help the pain in her legs. Pt given PRN Ativan and Tylenol 650 mg and up to BR. Pt fell asleep at 0415 and is currently sleeping. Pt has slept a total of 4.25 hrs as of 629. Pt was cooperative in taking all medications. Pt did not voice any delusions regarding family, pt had no behaviors, no aggression. Will continue to monitor.
[2016-07-26] MEDS: CYCLOBENZAPRINE 5 MG TABLET PO PRN (06:57)
[2016-07-26 09:02] LABS: ANION GAP 12 MEQ/L (5-15); BUN/CREATININE RATIO 28 RATIO (6-26); CALCIUM 9.4 MG/DL (8.4-10.2); CHLORIDE 98 MEQ/L (98-107); CO2 - CARBON DIOXIDE 24 MEQ/L (22-30); CREATININE 0.5 MG/DL (0.7-1.2); GLOMERULAR FILTRATION RATE 116; GLUCOSE 107 MG/DL (65-110); MAGNESIUM 2.2 MG/DL (1.6-2.3); POTASSIUM 4.4 MEQ/L (3.6-5); SODIUM 134 MEQ/L (134-144)
[2016-07-26 09:44] VITALS: BP 160/85; PULSE 68; RESP 18; TEMP 97.9; O2SAT 97
[2016-07-26] MEDS: GABAPENTIN 100 MG CAPSULE PO SCH ×3 (09:47→20:15)
[2016-07-26] MEDS: CYANOCOBALAMIN (B-12) 500mcg TABLET PO SCH (09:47)
[2016-07-26] MEDS: MAGNESIUM OXIDE 400 MG TABLET PO SCH (09:48)
[2016-07-26] MEDS: AMLODIPINE 5 MG TABLET PO SCH (09:48)
[2016-07-26] MEDS: LOSARTAN 50 MG TABLET PO SCH (09:48)
[2016-07-26] MEDS: IBUPROFEN 200 MG TABLET PO SCH ×3 (09:48→16:58)
[2016-07-26] MEDS: ACYCLOVIR 5% OINT 5gm TOP SCH ×3 (09:49→20:15)
--- NOTE | 2016-07-26 10:00 | NUR ---
EDUCATION FINANCE PROCESSOR--AM GROUP Pt. was sleeping in bed during group time. She was given a new medication this morning that made her sleepy.
--- NOTE | 2016-07-26 10:23 | NUR ---
status pt was woke at 0900 for the bathroom. compliant with am medication. refused breakfast. c/o being very tired. pt was given a prn flexeril at 0700ish. pt asked to be allowed to stay in bed for a while this am. pt told that someone would come and get her up for lunch. pt alert and oriented x3 this am.
--- NOTE | 2016-07-26 11:38 | GENPN ---
Generations Subjective Date DATE: 07/26/16 TIME: 11:28 Subjective/Severity of Illness Medications Current Medications Medications (Trade) Dose Ordered Sig/Ross Start Time Stop Time Status Last Admin Dose Admin Miscellaneous Medication (May use PRN orders) 1 PRN PRN 07/23/16 23:30 Haloperidol (Haldol) 0.5 mg Q6H PRN 07/23/16 23:30 Lorazepam (Ativan) 0.5 mg Q6H PRN 07/23/16 23:30 07/26/16 03:01 0.5 MG Lorazepam (Ativan) 0.5 mg Q6H PRN 07/23/16 23:30 Haloperidol Lactate (Haldol 5 Mg/ml Inj) 0.5 mg Q6H PRN 07/23/16 23:30 Lorazepam (Ativan Intensol) 0.5 mg Q6H PRN 07/23/16 23:30 Haloperidol (Haldol Liquid) 0.5 mg Q6H PRN 07/23/16 23:30 Acyclovir (Zovirax) 1 applic TID 07/24/16 09:00 07/26/16 09:49 1 APPLIC Amlodipine Besylate (Norvasc) 5 mg DAILY 07/24/16 09:00 07/26/16 09:48 5 MG Gabapentin (Neurontin) 100 mg TID 07/24/16 09:00 07/26/16 09:47 100 MG Ibuprofen (Motrin) 200 mg BID 07/24/16 09:00 07/26/16 11:10 DC 07/26/16 09:48 200 MG Levothyroxine Sodium (Synthroid) 100 mcg ACB 07/24/16 06:30 07/26/16 05:45 100 MCG Losartan Potassium (COZAAR 50 mg) 50 mg DAILY 07/24/16 09:00 07/26/16 09:48 50 MG Magnesium Oxide (Magox) 400 mg DAILY 07/24/16 09:00 07/26/16 09:48 400 MG Trolamine Salicylate (Aspercreme) 1 applic Q4H PRN 07/24/16 03:15 07/25/16 12:41 1 APPLIC Acetaminophen (Tylenol Regular Strength) 650 mg Q5H PRN 07/25/16 02:30 07/25/16 02:56 DC Acetaminophen (Tylenol Regular Strength) 650 mg Q3-4H PRN 07/25/16 03:00 07/26/16 03:01 650 MG Cyanocobalamin (Vit. B-12) 500 mcg DAILY 07/26/16 09:00 07/26/16 09:47 500 MCG Cyclobenzaprine HCl (Flexeril) 5 mg TID PRN 07/25/16 21:00 07/26/16 11:10 DC 07/26/16 06:57 5 MG Ibuprofen (Motrin) 400 mg TIDWM 07/26/16 12:00 Subjective Patient seen, chart reviewed and vitals noted to be stable. Patient was admitted on 07/24/16 for visual hallucination, agitation and impaired cognition. She scored 22/30 on SLUM and she has an 11th grade education. Patient was seen today to be drowsy but can be aroused easily. She was said to have received PRN Lorazepam last night and also got Flexeril for pain. She has been very sleepy today. Concerned about the side effects of Flexeril in the elderly and will discontinue it for now and possibly increase Ibuprofen to 400mg TID and consider using Diclofenac gel for pain. There has not been any behavioral problem on the unit and we are still waiting for Wen and Rippa eval. Reviewed Labs BMP, Vitamin B12 and folate were all wnl. Time of Service: 11:00 Start Time: 11:00 Stop Time: 11:30 Care >50% of this visit spent in counseling/coordination care. Generations Exam Vitals Vital Signs Date Time Temp Pulse Resp B/P Pulse Ox O2 Delivery O2 Flow Rate FiO2 07/26/16 09:44 97.9 68 18 160/85 97 Room Air Physical examination performed by the hospitalist. Height (Feet): 5 Height (Inches): 1.00 Mental Status Exam Muscle Strength/Tone: Weak Dressing: Casual Grooming: Good Attitude: Cooperative Motor Activity: Normal Speech: Slowed Volume: Soft Rhythm: Appropriate Rhythm Sensory: Drowsy Orientation: Oriented to person, Oriented to place, Oriented to time Mood: Neutral Affect: Restricted Rate of Thoughts: Appropriate Rate Thought Organization: Disorganized Abstract Reasoning: Impaired, concrete Thought Content: Delusions Attention Span/Concentration: Short Span Language: Naming Impaired Fund of Knowledge: Poor fund of knowledge Memory: Poor-immediate Suicidal Ideation: None Homicidal Ideation: None Insight: Poor Impulse Control: Poor Laboratory Tests Test 07/26/16 08:39 Turbidity < 20 Sodium Level 134MEQ/L Potassium Level 4.4MEQ/L Chloride Level 98MEQ/L Carbon Dioxide Level 24MEQ/L Anion Gap 12MEQ/L Blood Urea Nitrogen 14.0MG/DL Creatinine 0.5MG/DL Glomerular Filtration Rate Calc 116 BUN/Creatinine Ratio 28RATIO Glucose Level 107MG/DL Calculated Osmolality 259MOSM/KG Calcium Level 9.4MG/DL Magnesium Level 2.2MG/DL Icterus Index < 2 Chemistry Specimen Hemolysis < 15 Assessment and Plan (1) Major neurocognitive disorder due to Alzheimer's disease, probable, with behavioral disturbance Assessment: likely, rule out vascular dementia, does have hx of TIAs so may be mixed presentation also. also consider lewy body given the reportedly strong visual hallucination component. 07/25/16: Observe patient on the unit. Wen/CATRINA jacksonal and consult Podiatry for her nails. 07/26/16: DC Flexeril and increase Ibuprofen to 400mg TID. Diclofenac gel TID. Awaiting KRISTY Shaffer MD July 26, 2016 11:33
--- NOTE | 2016-07-26 12:43 | NUR ---
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 has spent over an hour completing her morning routine. She is very particular about the clothes she wears, how they were washed, and whether or not they have "fuzzies" on them. She has to pick and make sure everything is off her clothing. Pt. expressed frustration that some one other than herself had washed her clothes. She doesn't even let her daughter wash her clothes because she has a certain routine. Pt. was advised by this SW that she would be in the hospital for at least another week or so according to Dr. Okeefe and that she would have to allow staff to wash her clothes while she is here. She said she would rather have her daughter just buy her new clothes. She could not find her knee high hose so this SW contacted her daughter, Jacqueline. Jacqueline said she was told by a nurse yesterday to take them home because they were too tight and cutting off her circulation in her legs.
[2016-07-26 16:03] VITALS: BP 145/71; PULSE 76; RESP 18; TEMP 98; O2SAT 97
--- NOTE | 2016-07-26 17:53 | NUR ---
summary pt has not slept since waking this am. ate only about 25% of lunch, and 100% of supper. pt has been compliant with all medication this shift. pt did visit with her daughter on the phone this afternoon. conversation was appropriate. pt has had no prn medication. no aggressive behavior noted this shift. pt has been pleasant and cooperative all shift.
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
[2016-07-26 21:27] VITALS: BP 147/74; PULSE 76; RESP 20; TEMP 98.2; O2SAT 95
[2016-07-27] MEDS: ACETAMINOPHEN 325 MG TABLET PO PRN (04:14)
[2016-07-27] MEDS: TROLAMINE SALICYLATE 85 GM TUBE TOP PRN (04:20)
[2016-07-27] MEDS: ACYCLOVIR 5% OINT 5gm TOP SCH ×3 (04:22→20:59)
--- NOTE | 2016-07-27 05:10 | NUR ---
Chart Check 24 hour chart check completed
[2016-07-27] MEDS: LEVOTHYROXINE 100 MCG TABLET PO SCH (05:33)
--- NOTE | 2016-07-27 06:28 | NUR ---
Summary/Sleep Pt was in the DR until 2129, then to her room to get ready for bed, pt received PRN Tylenol 650 mg at this time. Pt is very particular about how cares are completed. Her clothes have to be hung in a certain place, clothes washed a certain way and states she has told her daughter to wash her clothes for her while she is here. Pt will wash her face 5-6 times, then cleans around the sink, brushes her teeth and then cleans out the sink again. It took pt 1HR and 30 minutes to complete cares. Pt in bed at 2300. She slept from [id number], pt up to BR and c/o spasms and pain in her R hip that "feels like serna". Pt is very stiff and having difficulties walking. Pt back to bed at 0145, she slept from [id number]. Pt went to BR and was given PRN Tylenol 650 mg at 0414 for c/o pain to R hip and muscle spasms in her legs. Pt back to bed at 0500, sleeping 0515 and is currently sleeping. Pt has remained free from falls, has used her call light appropriately through the night. She has had no behaviors, she has been cooperative with cares and taking medication. She has not voiced any paranoid delusions regarding her family. Pt did not sleep well, 5 HRs of broken sleep cycle. Bed locked, low position, SR up x 2, call light in reach, bed alarm is on and functioning. Will continue to monitor.
[2016-07-27] MEDS: MAGNESIUM OXIDE 400 MG TABLET PO SCH (08:54)
[2016-07-27] MEDS: CYANOCOBALAMIN (B-12) 500mcg TABLET PO SCH (08:54)
[2016-07-27] MEDS: GABAPENTIN 100 MG CAPSULE PO SCH ×2 (08:54→15:00)
[2016-07-27] MEDS: IBUPROFEN 200 MG TABLET PO SCH ×3 (08:54→16:01)
[2016-07-27] MEDS: LOSARTAN 50 MG TABLET PO SCH (08:56)
[2016-07-27] MEDS: AMLODIPINE 5 MG TABLET PO SCH (08:56)
[2016-07-27 08:57] VITALS: BP 148/79; PULSE 80; RESP 16; TEMP 97.7; O2SAT 96
--- NOTE | 2016-07-27 09:31 | NUR ---
BIJAN THAKKAR SPOKE WITH KEVIN MARTÍNEZ VIA TELEPHONE. DISCUSSED A D/C PLAN FOR PT. DAUGHTER WOULD LIKE TO KEEP PT CLOSE TO HER. DAUGHTER AND CM DISCUSSED THAT PREVIOUS PLACE WILL MOST LIKELY NOT MEET NEEDS. MAURICIO OKAY WITH BIJAN REACHING OUT TO [facility]. DAUGHTER WOULD LIKE A TOUR AND TO DISCUSS FINANCIALS. BIJAN SPOKE WITH GUS FROM [facility] AND PROVIDED GUS WITH MAURICIO CONTACT INFORMATION AND OVER VIEW OF PT. GUS WILL CONTACT BIJAN POST TALKING WITH MAURICIO.
--- NOTE | 2016-07-27 10:00 | NUR ---
status pt alert and oriented x3. pleasant and cooperative. pt c/o pain in her right hip. has scheduled ibuprofen ordered. pt compliant with am medication. pt slept total of 5.5 hrs. Addendum: 07/27/16 at 1054 by DOE MONTILLA RN pt woke at 0800 broken sleep times throughout the night. total sleep is 7hrs
--- NOTE | 2016-07-27 10:44 | NUR ---
OVEREDGER Pt.'s morning routine takes extended length of time (usually an hour) due to her obsessive/compulsive traits. She smells the clothes in her closet and insists they are not clean. There cannot be any strings or pilling of the threads on her clothing. Pt. is also very methodical in her toileting routine. While in the day room, pt. uses her phone to call her family to complain that food is cold (it was heated up by staff) and she doesn't like it, she didn't sleep well, her clothes aren't clean, and no one is there is help her (even though staff person was standing very near her). She eats very slowly. When done, she returns to her room where she spends several minutes in her bathroom routine. She then c/o not feeling well (stomach upset) so she goes back to bed. She was not available to meet 1:1 with MARTELL.
--- NOTE | 2016-07-27 10:57 | NUR ---
BONDED STRAND OPERATOR--INDIVIDUAL LSCSW met 1:1 with pt. as she was sitting in her wheelchair at the dining room table. Pt. appears distraught (moaning softly). The shades have been drawn in the day room because pt. reported seeing frightening hallucinations outside. Pt. is slumped in her chair and speech is mumbled and difficult to understand. This SW worked with pt. on controlled breathing exercise to help reduce anxiety and distress. Used crossing midline exercises to help loosen patient's muscles and to help her try and focus on something other than her distress. Pt. was able to down regulate her emotions to the point her speech was slightly clearer. Pt. asked difference between hallucinations and delusions. This SW provided education regarding their definitions and differences. Pt. does verbalize that she is hearing voices and she believes something bad is going to happen. Additional information provided to patient regarding medication changes and importance of taking medications as prescribed. Validated patient's frustration and fears and also acknowledged her strength and courage while trying to cope as best she is able. Pt. thanked this SW for talking with her. She was going to try to do some walking to see if that helped her mood.
--- NOTE | 2016-07-27 15:59 | GENPN ---
[facility] Subjective Date DATE: 07/27/16 TIME: 15:44 Subjective/Severity of Illness Medications Current Medications Medications (Trade) Dose Ordered Sig/Ross Start Time Stop Time Status Last Admin Dose Admin Miscellaneous Medication (May use PRN orders) 1 PRN PRN 07/23/16 23:30 Haloperidol (Haldol) 0.5 mg Q6H PRN 07/23/16 23:30 Lorazepam (Ativan) 0.5 mg Q6H PRN 07/23/16 23:30 07/26/16 03:01 0.5 MG Lorazepam (Ativan) 0.5 mg Q6H PRN 07/23/16 23:30 Haloperidol Lactate (Haldol 5 Mg/ml Inj) 0.5 mg Q6H PRN 07/23/16 23:30 Lorazepam (Ativan Intensol) 0.5 mg Q6H PRN 07/23/16 23:30 Haloperidol (Haldol Liquid) 0.5 mg Q6H PRN 07/23/16 23:30 Acyclovir (Zovirax) 1 applic TID 07/24/16 09:00 07/27/16 04:22 1 APPLIC Amlodipine Besylate (Norvasc) 5 mg DAILY 07/24/16 09:00 07/27/16 08:56 5 MG Gabapentin (Neurontin) 100 mg TID 07/24/16 09:00 07/27/16 08:54 100 MG Ibuprofen (Motrin) 200 mg BID 07/24/16 09:00 07/26/16 11:10 DC 07/26/16 09:48 200 MG Levothyroxine Sodium (Synthroid) 100 mcg ACB 07/24/16 06:30 07/27/16 05:33 100 MCG Losartan Potassium (COZAAR 50 mg) 50 mg DAILY 07/24/16 09:00 07/27/16 08:56 50 MG Magnesium Oxide (Magox) 400 mg DAILY 07/24/16 09:00 07/27/16 08:54 400 MG Trolamine Salicylate (Aspercreme) 1 applic Q4H PRN 07/24/16 03:15 07/25/16 12:41 1 APPLIC Acetaminophen (Tylenol Regular Strength) 650 mg Q5H PRN 07/25/16 02:30 07/25/16 02:56 DC Acetaminophen (Tylenol Regular Strength) 650 mg Q3-4H PRN 07/25/16 03:00 07/27/16 04:14 650 MG Cyanocobalamin (Vit. B-12) 500 mcg DAILY 07/26/16 09:00 07/27/16 08:54 500 MCG Cyclobenzaprine HCl (Flexeril) 5 mg TID PRN 07/25/16 21:00 07/26/16 11:10 DC 07/26/16 06:57 5 MG Ibuprofen (Motrin) 400 mg TIDWM 07/26/16 12:00 07/27/16 11:54 400 MG Subjective Patient seen, chart reviewed and vitals noted to be stable. Patient was admitted on 07/24/16 for visual hallucination, agitation and impaired cognition. She scored 22/30 on SLUM and she has an 11th grade education. Patient was seen today and she reports that she is doing okay. Patient was observed to have spent about 1 hour in the bathroom attending to her rituals, before and after using the bathroom. Staff reports that she often stays long in the bathroom, but she has not had any behavioral problem on the unit. There has not been any delusions or visual hallucinations. Discussed start Memantine with patient's family and the daughter Jacqueline plans to make decision about starting the medication later today or tomorrow. Discussed the benefit and side effects of Namenda with patient and she plans to discuss it with family later this evening. Sleep: 7 hours (broken) Time of Service: 12:45 Start Time: 12:45 Stop Time: 13:05 Care >50% of this visit spent in counseling/coordination care. [facility] Exam Vitals Vital Signs Date Time Temp Pulse Resp B/P Pulse Ox O2 Delivery O2 Flow Rate FiO2 07/27/16 08:57 97.7 80 16 148/79 96 Room Air Physical examination performed by the hospitalist. 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 also consider lewy body given the reportedly strong visual hallucination component. 07/25/16: Observe patient on the unit. Wen/CATRINA eval and consult Podiatry for her nails. 07/26/16: DC Flexeril and increase Ibuprofen to 400mg TID. Diclofenac gel TID. Awaiting RIpeli and wen 07/27/16: Voltaren gel TID for pain. Will consider starting Memantine 5mg daily after family consent. Secondly, given patients poor sleep, appetite and ritualistic behavior, she may be benefit from Mirtazapine. KRISTY LAMBERT MD July 27, 2016 15:49
[2016-07-27 16:00] VITALS: BP 132/71; PULSE 79; RESP 16; TEMP 98.2; O2SAT 99
--- NOTE | 2016-07-27 18:28 | NUR ---
Family Visiting Pt family here visiting (daughter and granddaughter) they are going to her room now to try on some clothes. They have all been sitting and visiting at dinner table. Daughter wants the pt to take Namenda or at least try and pt is hesitant about taking it. They are also discussing the pt moving to mortgage loan assistant living unit. This ad copy writer discussed Namenda in general with the family and pt. Pt states she will think about it.
[2016-07-27 19:43] VITALS: BP 149/83; PULSE 87; RESP 18; TEMP 98.6; O2SAT 95
[2016-07-27] MEDS: GABAPENTIN 300 MG CAPSULE PO SCH (20:19)
[2016-07-27 20:30] VITALS: PULSE 87; RESP 18
[2016-07-27] MEDS: DICLOFENAC 1% TOPICAL GEL 100 G TUBE TOP SCH (20:59)
[2016-07-27] MEDS: LORAZEPAM 0.5 MG TABLET PO PRN (21:39)
--- NOTE | 2016-07-27 21:39 | NUR ---
patient status/prn given Pt in her room at the start of shift visiting and trying on clothing with her family. Pt cooperative with assessment and vitals, pt little irritated at family over clothing, pt wants scrubs "light blue" to wear like the staff wears. Pt states her clothing is to tight, family left pink jacket and sage pair of pants for patient to wear, family took the rest of the clothing they brought in tonight home. Pt very tearful when family left at 20:15, pt did agree to come to the dayroom for a snack. Pt took hs medications, pt called family on phone upset that her son would not answer his phone. Pt called her daughter Jacqueline, very tearful wanted family to take care of her. Pt cell phone taken to charge at 21:15. Pt requested to go to her room, pt did hs cares, pt sat on the toilet for 30 minutes up and down doing pericare. Pt upset, pacing, crying that she doesn't like being 86 years old, pt did not want clothing washed, pt sniffed clothing states "these are dirty" offered to wash pt clothing. Pt states my daughter will wash my clothing. Pt request something for rt hip pain states "it feels like I'm being punched" pt given at Ativan 0.5mg to help pt relax and to rest. Pt is now brushing her teeth with staff at bedside, will monitor pt.
--- NOTE | 2016-07-27 22:39 | NUR ---
prn update Pt is now resting in bed with 2 bed rails up and bed alarm on.
--- NOTE | 2016-07-27 23:30 | NUR ---
bedtime Pt is in bed asleep at 23:30 with 2 bed rails up and bed alarm on, pt slept 0 on dayshift.
--- NOTE | 2016-07-28 01:35 | NUR ---
Chart Check 24 hour chart check completed
--- NOTE | 2016-07-28 03:20 | NUR ---
patient status Pt awake states she is having leg and hip cramps in rt leg, pt is sleepy, pt states she feels drunk when first waking up. Pt assist x2 to the bathroom, pt back to bed and pt took a drink of water and started burping, pt states her stomach hurts, pt made herself burp for 5 minutes, pt did drink a lemon [place] drink. Pt is now in bed with 2 bed rails up and bed alarm on.
--- NOTE | 2016-07-28 04:24 | NUR ---
Chart Check 24 hour chart check completed
--- NOTE | 2016-07-28 06:45 | NUR ---
shift summary Pt is alert and oriented x3, pt is up with front wheeled walker, pt cooperative with staff, pt visited with her family last night, pt tearful when her daughter went home for the night. Pt attempted to call her son last night on her cell phone. Pt son did not answer the phone, pt states "I am better off " pt reassured, staff attempted to talk with patient, pt states "let me be, I'm missing my daughter and life will never be the same again." Pt given Ativan 0.5mg at 21:39, pt slept well during night, pt up at midnoc to the bathroom, pt unsteady ambulating with walker. Pt states "I feel drunk", pt assisted to bathroom and back to bed. Pt had right leg cramps, pt assisted with leg stretches. Pt went back to sleep and slept until 06:15 pt assisted to the bathroom, pt gait better with front wheeled walker, pt had no hallucinations or aggression overnight, pt did take hs medications whole. Pt is currently in bed with bed alarm on.
[2016-07-28 08:00] VITALS: BP 143/83; PULSE 91; RESP 20; TEMP 97.9; O2SAT 95
[2016-07-28] MEDS: CYANOCOBALAMIN (B-12) 500mcg TABLET PO SCH (09:31)
[2016-07-28] MEDS: GABAPENTIN 300 MG CAPSULE PO SCH ×3 (09:31→20:27)
[2016-07-28] MEDS: MAGNESIUM OXIDE 400 MG TABLET PO SCH (09:31)
[2016-07-28] MEDS: IBUPROFEN 200 MG TABLET PO SCH ×3 (09:31→17:55)
[2016-07-28] MEDS: AMLODIPINE 5 MG TABLET PO SCH (09:31)
[2016-07-28] MEDS: LOSARTAN 50 MG TABLET PO SCH (09:31)
[2016-07-28] MEDS: LEVOTHYROXINE 100 MCG TABLET PO SCH (09:32)
[2016-07-28] MEDS: DICLOFENAC 1% TOPICAL GEL 100 G TUBE TOP SCH ×3 (09:33→20:28)
[2016-07-28] MEDS: ACYCLOVIR 5% OINT 5gm TOP SCH ×3 (09:34→20:28)
--- NOTE | 2016-07-28 10:00 | NUR ---
sleep note patient woke up at 0700 this morning slept a total of 7 1/2 hr last night.
--- NOTE | 2016-07-28 10:09 | NUR ---
SURTASS ANALYST--FAMILY CONTACT [facility] made phone contact with pt's daughter/DPOA-HC (Jacqueline). Confirmed with daughter that she will be doing ALL OF PATIENT'S LAUNDRY. She said patient has done her own laundry all her adult life and if she is accepted by [facility], they will allow patient to do her own laundry. She has already talked with her mother this morning and she knows she is upset because her clothes were washed last night. Jacqueline said they have an appt. at 1100 today with [facility] and she will be in to visit her mother (and picking belt operator any dirty clothes) after her 2:00 doctor's appt. today. This SW asked daughter how she would like results of the cognitive testing shared with her mother. She said she would like to be present. She will be at the hospital tomorrow and will sit on that conversation. The daughter also asked about her mother's refusal to take "dementia" medication. Explained that it would have to be with the DPOA'S permission that medications be given with pudding, ice cream, etc. Daughter will talk with her mother again about importance of taking her medications.
--- NOTE | 2016-07-28 11:29 | PNPDOC ---
LATISHA BERNSTEIN 07/28/16 1122: Subjective Date DATE: 07/28/16 TIME: 11:19 Subjective Margoth is seen this morning in follow up for her recent behavioral changes. She is seen while sitting in the day room, having coffee and is pleasant on exam. She denies any concerns including no chest pain, shortness of breath, abdominal pain, nausea, vomiting or dysuria. She reports that she spent a lot of time in the bathroom yesterday having small bowel movements that she missed her shower and is eager for a shower today. She denies any diarrhea today. Nursing notes state that she has been cooperative with cares. Her appetite is good. On exam, she is sitting in the day room, looking out the window, drinking coffee. She is alert and orientated to person and place. Cardiac exam reveals regular rate and rhythm and lungs are clear to auscultation. Abdomen is soft, nontender with active bowel sounds. No edema noted to lower extremities. Cooperative. Objective Vital Signs Vital signs Vital Signs Date Time Temp Pulse Resp B/P Pulse Ox O2 Delivery O2 Flow Rate FiO2 07/28/16 08:00 97.9 91 20 143/83 95 Room Air Height (Feet): 5 Height (Inches): 1.00 Weight (Kilograms): 60.200 General General Appearance: Alert, Cooperative, No Acute Distress Eyes (Brief) Eyes: FOUND: PERRL, NOT FOUND: scleral icterus ENMT (Brief) ENMT: FOUND: mucosa moist, normal dentition Neck (Brief) Neck: FOUND: midline, NOT FOUND: nuchal rigidity, tracheal deviation Respiratory (Brief) Respiratory: FOUND: clear all whyte, equal bilaterally, symmetrical, NOT FOUND : rales, wheezes Cardiovascular (Brief) Cardiac: FOUND: regular rate, regular rhythm, NOT FOUND: pedal edema Abdomen (Brief) Abdominal: FOUND: BS normo active x4, soft, NOT FOUND: distended, tender Extremities (Brief) Extremity : Side: Bilateral Extremity: leg Extremity Finding: NOT FOUND: deformity, edema Lymphatic (Brief) Lymphatic: NOT FOUND: lymphedema Musculoskeletal (Brief) Musculoskeletal: NOT FOUND: deformity, loss of motion Integumentary (Brief) Integumentary: FOUND: dry, pink, warm Neurologic (Brief) Neurological: NOT FOUND: facial droop Psychiatric (Brief) Psychiatric: FOUND: alert, attentive Comments cooperative Assessment & Plan Problems: (1) Cognitive and behavioral changes Status: Acute (2) Cramps of lower extremity Status: Acute Assessment & Plan: Patient seen and examined independently on the same day. Read and agree with Leta Hitchcock examine and assessment. Will repeat potassium level and at a magnesium level to this for the morning. Considering supplemental low-dose oral potassium and magnesium see if this helps with symptoms (3) HTN (hypertension) Status: Chronic (4) Hypothyroidism Status: Chronic (5) History of TIAs Status: Resolved Plan/Intensity of Service 07/27/16: BOBBY. Overall, Margoth is doing well and medically stable. Continue psychiatric treatment per Dr. Johnson and team. Psychiatric admission note reviewed: r/o vascular dementia, lewy body dementia, delirium. Continue supportive care for leg cramps/pain - Aspercreme, icy hot, ibuprofen, ice bag or heat. Continue to monitor blood pressure closely. Stable with systolic in the 140's. Repeat CBC and BMP in AM to monitor blood counts, electrolytes and renal function. Continue to provide safe and supportive environment. Case management working on discharge plan with possible admission to [place]. Code Status Do Not Resuscitate Hospital Course Summary Disclaimer The hospital course summary below is not to be considered part of the above Progress Note. Hospital Course Summary 07/24/16 Agree with admission to the [facility] for further psychiatric evaluation and treatment Given lower extremity cramping. Will check BMP and magnesium level now. She does take a oral magnesium supplementation Monitor blood pressure and continue on Norvasc and Cozaar Encourage patient to participate in unit activities and provide a safe environment. The hospitalist services will continue to follow patient and medical management of her existing comorbidities during her stay on the [facility] unit. At time of discharge medical care will return to her primary care provider, Dr.Trenton Gardner 07/25/16 Labs reviewed - hgb A1c 6%; TSH, prealbumin were normal. B12 was low end of normal range - will start replacement. RPR pending. UA and CBC done at outside facility were not impressive. BP moderately elevated since arrival - prefer to monitor for a couple more days before recommending any changes to antihypertensives. Supportive care for leg cramps/pain - Aspercreme, icy hot, ibuprofen, ice bag or heat. Psychiatric admission note reviewed: r/o vascular dementia, lewy body dementia, delirium. 07/27/16: BOBBY. Overall, Margoth is doing well and medically stable. Continue psychiatric treatment per Dr. Johnson and team. Psychiatric admission note reviewed: r/o vascular dementia, lewy body dementia, delirium. Continue supportive care for leg cramps/pain - Aspercreme, icy hot, ibuprofen, ice bag or heat. Continue to monitor blood pressure closely. Stable with systolic in the 140's. Repeat CBC and BMP in AM to monitor blood counts, electrolytes and renal function. Continue to provide safe and supportive environment. Case management working on discharge plan with possible admission to [place]. INES PARRISH MD 07/28/16 1933: Assessment & Plan Assessment Read above assessment and plan and agree with notes from nurse practitioner Latisha Bernstein, patient seen and examined by me. Appears to be more alert and engaged. She remembers multiple points of conversation from a few days ago. No new medical issues apparent. Continue with current care from a medical standpoint. Psychiatry may determine time of discharge LATISHA BERNSTEIN July 28, 2016 11:22 INES PARRISH MD July 28, 2016 19:33
--- NOTE | 2016-07-28 13:21 | STEVAL ---
Eval Subjective and History Date/Time of Eval DATE: 07/28/16 TIME: 12:33 Medical Diagnosis COGNITIVE/BEHAVIORAL CHANGES; CRAMPS IN LOWER EXTREMITY Treatment Order: Assessment Orientations: Person, Place, Alert, Cooperative Primary Complaint: COGNITIVE/BEHAVIORAL CHANGES Pain: No (NONE REPORTED) Date of Onset of Primary Com: 07/24/16 Clinical Test Results: COGNITIVE EVAL COMPLETED (RIPA) Prior History of This Problem: No Patient's Goals: NONE STATED Significant Past Medical Hx: PER CHART, MEDICAL HISTORY INCLUDES: HTN; HYPOTHYROIDISM; HX TIA Medical History Form Reviewed: Yes Residence Type: Private home/apartment Lives With: Children Caregiver Status: No Prior Functional Status: COGNITIVE BASELINE IS UNKNOWN; HOWEVER, H&P INDICATES BEHAVIORAL CHANGES Education Subject: Treatment Plan Person(s) Educated: Patient Instruction Understanding Demo: Pt. verbalizes understand Education Comment SCHEDULING AGENT educated patient on reasoning for evaluation. Patient was agreeable to evaluation. Subjective and History Comment: PER CHART, PT IS AN 86 Y/O FEMALE ADMITTED WITH C/O COGNITIVE AND BEHAVIORAL CHANGES RECENTLY. MEDICAL HISTORY INCLUDES: HTN; HYPOTHYROIDISM; HX TIA. PT LIVES IN [place] WITH HER DAUGHTER. Cognition Answer yes/no questions: Yes (PT EXHIBITS SOME DIFFICULTY WITH COMPLEX YES/NO QUESTIONS) Follow simple commands: Yes Follow complex commands: Yes (ON 03/13 TRIALS) Understands conversation: Yes Comprehension Comments THE PATIENT IS HARD OF HEARING. DURING THIS EVALUATION, SHE REQUIRED FREQUENT REPETITION AND INCREASED AMOUNTS OF TIME TO PROCESS INFORMATION. SHE FREQUENTLY PERSEVERATED BRIEFLY ON A PREVIOUS TASK BEFORE INDEPENDENTLY SELF- CORRECTING TO THE CURRENT TASK. SHE EXHIBITS IMPAIRED SHORT-TERM MEMORY AND ATTENTION SKILLS, WHICH NEGATIVELY IMPACT HER ABILITY TO COMPREHEND AND RECALL INFORMATION. Identifies a problem exists: Yes Solving simple problems: Minimum Solving complex problems: Minimum Organizes daily tasks: Yes Problem Solving Comments THE PATIENT REQUIRED FREQUENT REPETITION AND INCREASED AMOUNT OF TIME TO PROCESS QUESTIONS/INFORMATION. Expression Assessment Method: Verbal Expression Abilities: Social speech, Repeats words, Repeats phrases, Communucates w/ words, Communicates w/ gestures, Formulates Sentences, Basic Conversation % Words Intelligible: 100 % Sentence Intelligible: 100 % Conversation Intelligible: 95 Voice Quality: Within Functional Limits Expression Comment: THE PT IS ABLE TO FUNCTIONALLY COMMUNICATE HER WANTS, NEEDS AND IDEAS. CONVERSATIONAL SPEECH IS INTELLIGIBLE AND CONVERSATIONAL LANGUAGE IS APPROPRIATE IN FORM AND CONTENT. SHE USED APPROPRIATE PRAGMATIC SKILLS DURING THIS EVALUATION SESSION. THE PATIENT REQUIRES INCREASED AMOUNT OF TIME TO PROCESS INFORMATION THAT IS PRESENTED TO HER. Repeats series number: Yes (WITH 3-4 DIGIT SEQUENCES, BUT NOT LONGER SEQUENCES) Repeats series word: Yes (WITH A SERIES OF 3 WORDS, BUT NOT ABLE TO WITH LONGER SERIES) Repeats sentence: Yes (SIMPLE SENTENCE, BUT NOT COMPLEX) Oriented to place: Yes Oriented to time: Yes Oriented to daily events: Yes Oriented to remote events: Yes (INCONSISTENTLY) Recalled personal inform: Yes Recalled visitors: Yes Recalled meal: Yes Repeated attemts at pronunciat: No Recalled general inform: Yes Memory Comments THE PT EXHIBITS MODERATELY IMPAIRED SHORT-TERM MEMORY SKILLS CHARACTERIZED BY HER DIFFICULTY IN IMMEDIATELY RECALLING NEW INFORMATION AND TASK INSTRUCTIONS. SHE WAS BETTER AT RECALLING INFORMATION THAT DIRECTLY RELATED TO HER OR THAT IS RELATED TO SIMPLE GENERAL INFORMATION/KNOWLEDGE THAT SHE HAS KNOWN FOR SOME TIME (I.E. WHAT HOLIDAY IS IN FEBRUARY). SHE EXHIBITED INCREASED DIFFICULTY WITH QUESTIONS RELATED TO HISTORICAL EVENTS. Maintain attention to task: No (NEEDS FREQUENT RE-DIRECTION TO TASK ) Social Interaction: Interacts fam/staff/visit, Initiates interaction Social Interaction Comment THE PATIENT USED APPROPRIATE TURN-TAKING AND TOPIC MAINTENANCE SKILLS THROUGHOUT THIS EVALUATION. Immediate Memory Score: 19 Immediate Memory Rate: Profound 0-30th Percent Recent Memory Score: 27 Recent Memory Rate: Moderate 61-90th Percent Recent Time [place] Score: 29 Recent Time [place] Rate: WFL >90th Percent Remote Time [place] Score: 28 Remote Time [place] Rate: Moderate 61-90th Percent Spatial [place] Score: 19 Spatial [place] Severity Rate: Profound 0-30th Percent Orientation to Enviro Score: 31 Orientation to Enviro Rate: WFL >90th Percent Recall of General Info Score: 21 Recall of General Info Rate: Severe 31-60th Percent Problem Solving/Abstract Score: 25 Problem Solving/Abstract Rate: Moderate 61-90th Percent Organization Score: 18 Organization Severity Rating: Severe 31-60th Percent Auditory Processing/Retention: 26 Auditory Processing/Retention: Severe 31-60th Percent Assessment/Plan of Care Speech Therapy Impressions: THE PATIENT PRESENTS WITH SEVERE OR PROFOUND DEFICITS IN IMMEDIATE MEMORY, SPATIAL ORIENTATION, RECALLING OF GENERAL INFORMATION, ORGANIZATION AND AUDIOTORY PROCESSING. SHE EXHIBITS MODERATE DEFICITS IN RECENT MEMORY, REMOTE TIME ORIENTATION, AND PROBLEM SOLVING/ABSTRACT REASONING. THE PATIENT WOULD BENEFIT FROM INCREASED SUPERVISION IN HER DAILY ENVIRONMENT IN ORDER TO MAINTAIN PATIENT'S SAFETY. SHE MAY ALSO BENEFIT FROM VISUAL CUES AND WRITTEN INSTRUCTIONS. ST Treatment Plan: Evaluation Only ST Treatment Plan Frequency: N/A Treatment Plan Duration: N/A Plan of Care Comment NO FURTHER SKILLED ST IS INDICATED AT THIS TIME. THE PATIENT WOULD BENEFIT FROM INCREASED SUPERVISION IN HER DAILY ENVIRONMENT IN ORDER TO MAINTAIN PATIENT'S SAFETY. SHE MAY ALSO BENEFIT FROM VISUAL CUES AND WRITTEN INSTRUCTIONS. Date of Visit 07/28/16 Time Visit Began: 11:30 Time Visit Ended: 12:00 ST Assess/Plan of Care: ST Treatment Charge: Speech Eval Minutes of Individual Therapy: 30 DOE NEVAREZ MS CCC-SCHEDULING AGENT July 28, 2016 12:36
--- NOTE | 2016-07-28 14:42 | NUR ---
CM THIS WORKER CALLED GUS AT [facility]; SHE SAID KEVIN DID TOUR TODAY, AND THEY SPOKE WITH HER ABOUT THE FINANCIAL PIECE. SHE SAID KEVIN AND THE FAMILY NEED TO FOLLOW UP REGARDING THIS. GUS ASKED THAT MEDICAL RECORDS BE FAXED. THIS WORKER EXPLAINED PERMISSION WILL NEED TO BE RECEIVED FIRST, AND SHE SAID SHE UNDERSTOOD.
--- NOTE | 2016-07-28 15:24 | NUR ---
BUNCHER HAND--PM GROUP Pt. took 90 minutes to complete her shower this afternoon due to her hygiene rituals. She was not available for afternoon psychosocial group facilitated by [facility].
[2016-07-28 16:24] VITALS: BP 159/80; PULSE 82; RESP 16; TEMP 99; O2SAT 97
--- NOTE | 2016-07-28 16:42 | GENPN ---
[facility] Subjective Date DATE: 07/28/16 TIME: 16:28 Subjective/Severity of Illness Medications Current Medications Medications (Trade) Dose Ordered Sig/Ross Start Time Stop Time Status Last Admin Dose Admin Miscellaneous Medication (May use PRN orders) 1 PRN PRN 07/23/16 23:30 Haloperidol (Haldol) 0.5 mg Q6H PRN 07/23/16 23:30 Lorazepam (Ativan) 0.5 mg Q6H PRN 07/23/16 23:30 07/27/16 21:39 0.5 MG Lorazepam (Ativan) 0.5 mg Q6H PRN 07/23/16 23:30 Haloperidol Lactate (Haldol 5 Mg/ml Inj) 0.5 mg Q6H PRN 07/23/16 23:30 Lorazepam (Ativan Intensol) 0.5 mg Q6H PRN 07/23/16 23:30 Haloperidol (Haldol Liquid) 0.5 mg Q6H PRN 07/23/16 23:30 Acyclovir (Zovirax) 1 applic TID 07/24/16 09:00 07/28/16 15:28 1 APPLIC Amlodipine Besylate (Norvasc) 5 mg DAILY 07/24/16 09:00 07/28/16 09:31 5 MG Gabapentin (Neurontin) 100 mg TID 07/24/16 09:00 07/27/16 16:21 DC 07/27/16 15:00 100 MG Ibuprofen (Motrin) 200 mg BID 07/24/16 09:00 07/26/16 11:10 DC 07/26/16 09:48 200 MG Levothyroxine Sodium (Synthroid) 100 mcg ACB 07/24/16 06:30 07/28/16 09:32 100 MCG Losartan Potassium (COZAAR 50 mg) 50 mg DAILY 07/24/16 09:00 07/28/16 09:31 50 MG Magnesium Oxide (Magox) 400 mg DAILY 07/24/16 09:00 07/28/16 09:31 400 MG Trolamine Salicylate (Aspercreme) 1 applic Q4H PRN 07/24/16 03:15 07/25/16 12:41 1 APPLIC Acetaminophen (Tylenol Regular Strength) 650 mg Q5H PRN 07/25/16 02:30 07/25/16 02:56 DC Acetaminophen (Tylenol Regular Strength) 650 mg Q3-4H PRN 07/25/16 03:00 07/27/16 04:14 650 MG Cyanocobalamin (Vit. B-12) 500 mcg DAILY 07/26/16 09:00 07/28/16 09:31 500 MCG Cyclobenzaprine HCl (Flexeril) 5 mg TID PRN 07/25/16 21:00 07/26/16 11:10 DC 07/26/16 06:57 5 MG Ibuprofen (Motrin) 400 mg TIDWM 07/26/16 12:00 07/28/16 13:55 400 MG Gabapentin (Neurontin) 300 mg TID 07/27/16 21:00 07/28/16 15:29 300 MG Diclofenac Sodium (Voltaren 1% Gel) 1 applic TID 07/27/16 21:00 07/28/16 15:28 1 APPLIC Mirtazapine (Remeron) 7.5 mg HS 07/28/16 21:00 Subjective Patient seen and chart reviewed. Patient was admitted on 07/24/16 for visual hallucination, agitation and impaired cognition. She scored 22/30 on SLUM and she has an 11th grade education. Patient was seen today and she reports that she is doing okay. Patient was seen to be talking with someone on the phone whom she refers to as her twin sister in [place]. Patient continues spend significant amount of time in the bathroom due to her ritualistic compulsions. She was said to have received Lorazepam last at about 2100 for sleep. There has not been any delusions or visual hallucinations on the unit. Discussed starting patient on Mirtazapine 7.5mg to help with her sleep, appetite and mood and she gave verbal consent. Discussed starting the medication with her daughter Jacqueline who is also her DPOA and she was okay with. Prior to starting the medication the risk, benefit and including the option of no medication was discussed with patient and her daughter and they both agreed to trial of low dose Mirtazapine. Time of Service: :30 Start Time: :30 Stop Time: 10:50 Care >50% of this visit spent in counseling/coordination care. [facility] Exam Vitals Vital Signs Date Time Temp Pulse Resp B/P Pulse Ox O2 Delivery O2 Flow Rate FiO2 07/28/16 16:24 99.0 82 16 159/80 97 Room Air Physical examination performed by the hospitalist. Height (Feet): 5 Height (Inches): 1.00 Mental Status Exam Muscle Strength/Tone: Weak Dressing: Casual Grooming: Good Attitude: Cooperative Motor Activity: Normal Eye Contact: Good Speech: Normal Volume: Normal Rhythm: Appropriate Rhythm Sensory: Alert Orientation: Oriented to person, Oriented to place, Oriented to time Mood: Anxious Affect: Restricted Rate of Thoughts: Appropriate Rate Thought Organization: Perseverations Abstract Reasoning: Poor abstract reasoning Computation: Poor Computation Language: Naming Intact Fund of Knowledge: Appropriate Memory: Poor-immediate Suicidal Ideation: None Homicidal Ideation: None Insight: Poor Judgment: Poor Impulse Control: Fair Assessment and Plan (1) Major neurocognitive disorder due to Alzheimer's disease, probable, with behavioral disturbance Assessment: likely, rule out vascular dementia, does have hx of TIAs so may be mixed presentation also. also consider lewy body given the reportedly strong visual hallucination component. 07/25/16: Observe patient on the unit. Wen/GWEN eval and consult Podiatry for her nails. 07/26/16: DC Flexeril and increase Ibuprofen to 400mg TID. Diclofenac gel TID. Awaiting Gwen and wen 07/27/16: Voltaren gel TID for pain. Will consider starting Memantine 5mg daily after family consent. Secondly, given patients poor sleep, appetite and ritualistic behavior, she may be benefit from Mirtazapine. 07/28/16: Mirtazapine 7.5mg q HS. WEN recommends that patient needs 24 hours supervision. KRISTY LAMBERT MD July 28, 2016 16:38
--- NOTE | 2016-07-28 17:24 | NUR ---
Status Pt's daughter here to visit. Pt told daughter that she was given a med either last night or the night before that made her feel drunk. According to emar pt was given Ativan. Pt states "I don't like how that med makes me feel". Informed pt that Dr. Okeefe had started a new med today and that med would be given to her tonight. Also stated Haldol could be given if needed tonight before Ativan. Pt does state she has had Ativan before and it didn't make her feel this way.
--- NOTE | 2016-07-28 17:32 | NUR ---
SHIFT SUMMARY Patient is AO x 3, speech is clear and appropriate, she is able to verbalize needs, no hallucinations noted, no delusions, no aggressive behaviors or exit seeking noted. No complains of pain this shift, she did have an unsteady gait this morning. patient was really upset this morning because her clothes was washed, she said she specifically told staff not to wash her clothes, that her daughter will wash them for her, patient states her clothes was ruined and it was really expensive clothes, patient states "this makes me really mad." and she threw her shirt to the bed. Patient called her daughter and told her about her clothes being ruined. Patients daughter called and spoke to this RN, daughter said she was not happy about what happed, she said "we specifically told staff not to wash her clothes and they went ahead and did it anyway." This RN put signs on patients closet door and in her room to make sure staff remembers not to wash her clothes any more. I will also pass it along on report to next shift. Patient appeared to be more calmed the rest of the shift, she had a shower today, she was compliant with medications, she has not complained of having cramps this shift, NO PRN medications given, patient smiles at times. Patient states " I felt drunk yesterday night and don't know why." This RN told patient that she did had PRN Ativan last night and that could have been the cause, patients replies " I had Ativan before lots of times and it never made me feel that way. Patient is currently eating dinner and denies needs or concerns at the moment.
[2016-07-28 20:10] VITALS: BP 135/73; PULSE 86; RESP 14; TEMP 97.5; O2SAT 98
[2016-07-28] MEDS: MIRTAZAPINE 15 MG TABLET PO SCH (20:27)
--- NOTE | 2016-07-28 23:40 | NUR ---
Status Pt is up with SBA and steve, a/o x 3, pleasant. Pt was cooperative with VS, assessment and medications. When pt took HS meds she was educated about new medication, Remeron. She took meds and then called her daughter to tell her she was taking a new medication and she wanted her to look up the side effects. This RN did speak to the daughter and she stated she just wanted to make sure we checked on her mom because she is allergic to so many things even more than what was reported to the unit d/t not knowing all the allergies. The daughter was reassured that the pt will be checked on q 15 minutes. Pt went to her room at 2044 and took an 1 hr for bedtime cares. Pt in bed at 2144 and asleep by 2229. Pt had no behaviors or PRNs given. Bed in low position, locked, SR up x 2, bed alarm on and functioning. Will continue to monitor.
--- NOTE | 2016-07-29 00:10 | NUR ---
Chart Check 24 hour chart check completed
--- NOTE | 2016-07-29 05:27 | NUR ---
Summary/sleep Pt slept from [id number] used the BR and was back to sleep by and allowed lab to draw blood and up to the BR. Pt has been cooperative and pleasant all shift. She has had muscle spasms in her legs when up to the BR but stopped by the time she was finished. Pt able to go right back to sleep. Pt took all meds this shift, she has not had any paranoid delusions about anything. Pt has not displayed any physical aggression or destruction of property. pt is currently awake but so far has slept a total of 5.5 hrs. Bed is in low position, locked, SR up x 2, call light in reach and used appropriately, alarm is on and functioning. will continue to monitor.
[2016-07-29 05:31] LABS: BASOPHILS # (AUTO) 0.1 T/MM3 (0-0.2); BASOPHILS % (AUTO) 0.8 % (0-2); EOSINOPHILS # (AUTO) 0.3 T/MM3 (0-0.5); EOSINOPHILS % (AUTO) 3.8 % (0-4); HCT - HEMATOCRIT 33.3 % (36-46); HGB - HEMOGLOBIN 11.3 GM/DL (12-16); IMMATURE GRANULOCYTE # (AUTO) 0.04 T/MM3 (0.00-0.03); IMMATURE GRANULOCYTE % (AUTO) 0.5 % (0.0-0.5); LYMPHOCYTES # (AUTO) 2.1 T/MM3 (1-4.8); LYMPHOCYTES % (AUTO) 26.3 % (23-45); MEAN CORPUSCULAR HGB 29.3 UUG (26-34); MEAN CORPUSCULAR HGB CONC(MCHC 33.9 GM/DL (31-37); MEAN CORPUSCULAR VOLUME 86.3 UM3 (80-100); MEAN PLATELET VOLUME 8.3 UM3 (9.4-12.4); MONOCYTES # (AUTO) 0.9 T/MM3 (0-0.8); MONOCYTES % (AUTO) 10.9 % (0-9.0); NEUTROPHILS #(AUTO)-ABSOLUTE 4.6 T/MM3 (1.8-7.7); NEUTROPHILS % (AUTO) 57.7 % (33-66); RED BLOOD COUNT 3.86 M/MM3 (4.00-5.20); WBC - WHITE BLOOD COUNT 7.9 T/MM3 (4.5-11.0)
[2016-07-29 05:41] LABS: ANION GAP 10 MEQ/L (5-15); BUN/CREATININE RATIO 27 RATIO (6-26); CHLORIDE 100 MEQ/L (98-107); CO2 - CARBON DIOXIDE 27 MEQ/L (22-30); CREATININE 0.6 MG/DL (0.7-1.2); GLOMERULAR FILTRATION RATE 94; GLUCOSE 110 MG/DL (65-110); POTASSIUM 4.5 MEQ/L (3.6-5); SODIUM 137 MEQ/L (134-144)
[2016-07-29] MEDS: LEVOTHYROXINE 100 MCG TABLET PO SCH (06:27)
--- NOTE | 2016-07-29 08:15 | NUR ---
Patient sleeps a total of 8.5 hours last night
[2016-07-29] MEDS: LOSARTAN 50 MG TABLET PO SCH (09:18)
[2016-07-29] MEDS: IBUPROFEN 200 MG TABLET PO SCH ×3 (09:18→17:24)
[2016-07-29] MEDS: MAGNESIUM OXIDE 400 MG TABLET PO SCH (09:19)
[2016-07-29] MEDS: GABAPENTIN 300 MG CAPSULE PO SCH ×3 (09:19→20:52)
[2016-07-29] MEDS: CYANOCOBALAMIN (B-12) 500mcg TABLET PO SCH (09:19)
[2016-07-29] MEDS: AMLODIPINE 5 MG TABLET PO SCH (09:19)
[2016-07-29] MEDS: ACYCLOVIR 5% OINT 5gm TOP SCH ×3 (09:22→20:53)
[2016-07-29] MEDS: DICLOFENAC 1% TOPICAL GEL 100 G TUBE TOP SCH ×3 (09:22→21:27)
[2016-07-29 09:26] VITALS: BP 143/84; PULSE 79; RESP 20; TEMP 98.3; O2SAT 96
--- NOTE | 2016-07-29 12:44 | NUR ---
EEO OFFICER--AM GROUP SW provided educational group for memory cognition of events in the participants lives. Card game used to jog memory and enact positive recall. After education component complete, music therapy used for memory recall as well. SW would provide a piece of music specific to each person and ask them to recall the name of the group/artist or the song or asked the pt to name a song to be played. Pt was able to accurately provide answers to the card game and provide names of artists played for music therapy. Pt had a hard time hearing at times and it made it a little difficult for her to provide answers or interact with the rest of the group. However, when music was played that she liked, pt was able to recite 100% of the words correctly.
--- NOTE | 2016-07-29 14:22 | NUR ---
CM CM SPOKE WITH PT DAUGHTER KEVIN. KEVIN EXPLAINED THAT SHE THINKS THAT [facility] WILL BE A GREAT PLACE FOR MOTHER BUT THEY DO HAVE A LOT OF DOCUMENTS THAT THEY NEED TO GATHER. KEVIN WILL PLAN ON TAKING PT HOME IF EVERYTHING IS NOT IN PLACE FOR [facility] AT THE TIME OF D/C FROM [facility]. BIJAN SPOKE WITH GUS FROM [facility] AND THEY ARE WORKING WITH PT FAMILY REGARDING NECESSARY PAPERWORK FOR [facility]. KEVIN AND GUS ARE AWARE TO CONTACT CM IF NEEDS [facility].
--- NOTE | 2016-07-29 16:21 | NUR ---
INSTRUCTIONAL FACILITATOR--PM GROUP Pt. was asleep and did not participate in psychoeducational group facilitated by [facility].
[2016-07-29 17:02] VITALS: BP 165/80; PULSE 84; RESP 18; TEMP 98.3; O2SAT 98
--- NOTE | 2016-07-29 17:20 | GENPN ---
[facility] Subjective Date DATE: 07/29/16 TIME: 17:16 Subjective/Severity of Illness Medications Current Medications Medications (Trade) Dose Ordered Sig/Ross Start Time Stop Time Status Last Admin Dose Admin Miscellaneous Medication (May use PRN orders) 1 PRN PRN 07/23/16 23:30 Haloperidol (Haldol) 0.5 mg Q6H PRN 07/23/16 23:30 Lorazepam (Ativan) 0.5 mg Q6H PRN 07/23/16 23:30 07/27/16 21:39 0.5 MG Lorazepam (Ativan) 0.5 mg Q6H PRN 07/23/16 23:30 Haloperidol Lactate (Haldol 5 Mg/ml Inj) 0.5 mg Q6H PRN 07/23/16 23:30 Lorazepam (Ativan Intensol) 0.5 mg Q6H PRN 07/23/16 23:30 Haloperidol (Haldol Liquid) 0.5 mg Q6H PRN 07/23/16 23:30 Acyclovir (Zovirax) 1 applic TID 07/24/16 09:00 07/29/16 16:18 1 APPLIC Amlodipine Besylate (Norvasc) 5 mg DAILY 07/24/16 09:00 07/29/16 09:19 5 MG Gabapentin (Neurontin) 100 mg TID 07/24/16 09:00 07/27/16 16:21 DC 07/27/16 15:00 100 MG Ibuprofen (Motrin) 200 mg BID 07/24/16 09:00 07/26/16 11:10 DC 07/26/16 09:48 200 MG Levothyroxine Sodium (Synthroid) 100 mcg ACB 07/24/16 06:30 07/29/16 06:27 100 MCG Losartan Potassium (COZAAR 50 mg) 50 mg DAILY 07/24/16 09:00 07/29/16 09:18 50 MG Magnesium Oxide (Magox) 400 mg DAILY 07/24/16 09:00 07/29/16 09:19 400 MG Trolamine Salicylate (Aspercreme) 1 applic Q4H PRN 07/24/16 03:15 07/25/16 12:41 1 APPLIC Acetaminophen (Tylenol Regular Strength) 650 mg Q5H PRN 07/25/16 02:30 07/25/16 02:56 DC Acetaminophen (Tylenol Regular Strength) 650 mg Q3-4H PRN 07/25/16 03:00 07/27/16 04:14 650 MG Cyanocobalamin (Vit. B-12) 500 mcg DAILY 07/26/16 09:00 07/29/16 09:19 500 MCG Cyclobenzaprine HCl (Flexeril) 5 mg TID PRN 07/25/16 21:00 07/26/16 11:10 DC 07/26/16 06:57 5 MG Ibuprofen (Motrin) 400 mg TIDWM 07/26/16 12:00 07/29/16 12:28 400 MG Gabapentin (Neurontin) 300 mg TID 07/27/16 21:00 07/29/16 16:18 300 MG Diclofenac Sodium (Voltaren 1% Gel) 1 applic TID 07/27/16 21:00 07/29/16 09:22 1 APPLIC Mirtazapine (Remeron) 7.5 mg HS 07/28/16 21:00 07/28/16 20:27 7.5 MG Subjective Pt seen and chart examined. Nursing reports pt is doing well on the unit. Sleeping well and has a good appetite. No behaviors noted. On face to face the pt is pleasant but confused. She is only oriented to self. She reports some hip pain but it is chronic. She reports her mood is stable. Voices no other concerns at this time. Tolerating meds Time of Service: 17:00 Start Time: 17:00 Stop Time: 17:15 Care >50% of this visit spent in counseling/coordination care. Generations Exam Vitals Vital Signs Date Time Temp Pulse Resp B/P Pulse Ox O2 Delivery O2 Flow Rate FiO2 07/29/16 17:02 98.3 84 18 165/80 98 Room Air Physical examination performed by the hospitalist. 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 Attention Span/Concentration: Short Span Fund of Knowledge: Poor fund of knowledge Memory: Poor-immediate, Poor-recent Suicidal Ideation: None Homicidal Ideation: None Insight: Poor Judgment: Poor Impulse Control: Fair Laboratory Tests Test 07/29/16 04:41 White Blood Count 7.9T/MM3 Red Blood Count 3.86M/MM3 Hemoglobin 11.3GM/DL Hematocrit 33.3% Mean Corpuscular Volume 86.3UM3 Mean Corpuscular Hemoglobin 29.3UUG Mean Corpuscular Hemoglobin Concent 33.9GM/DL RDW Standard Deviation 41.7FL Platelet Count 275T/MM3 Mean Platelet Volume 8.3UM3 Immature Granulocyte % (Auto) 0.5% Neutrophils (%) (Auto) 57.7% Lymphocytes (%) (Auto) 26.3% Monocytes (%) (Auto) 10.9% Eosinophils (%) (Auto) 3.8% Basophils (%) (Auto) 0.8% Absolute Immature Granulocyte (auto 0.04T/MM3 Absolute Neutrophils (auto) 4.6T/MM3 Absolute Lymphocytes (auto) 2.1T/MM3 Absolute Monocytes (auto) 0.9T/MM3 Absolute Eosinophils (auto) 0.3T/MM3 Absolute Basophils (auto) 0.1T/MM3 Turbidity < 20 Sodium Level 137MEQ/L Potassium Level 4.5MEQ/L Chloride Level 100MEQ/L Carbon Dioxide Level 27MEQ/L Anion Gap 10MEQ/L Blood Urea Nitrogen 16.0MG/DL Creatinine 0.6MG/DL Glomerular Filtration Rate Calc 94 BUN/Creatinine Ratio 27RATIO Glucose Level 110MG/DL Calculated Osmolality 266MOSM/KG Calcium Level 10.0MG/DL Icterus Index < 2 Chemistry Specimen Hemolysis < 15 Assessment and Plan (1) Major neurocognitive disorder due to Alzheimer's disease, probable, with behavioral disturbance Assessment: likely, rule out vascular dementia, does have hx of TIAs so may be mixed presentation also. also consider lewy body given the reportedly strong visual hallucination component. 07/25/16: Observe patient on the unit. Wen/GWEN eval and consult Podiatry for her nails. 07/26/16: DC Flexeril and increase Ibuprofen to 400mg TID. Diclofenac gel TID. Awaiting Gwen and wen 07/27/16: Voltaren gel TID for pain. Will consider starting Memantine 5mg daily after family consent. Secondly, given patients poor sleep, appetite and ritualistic behavior, she may be benefit from Mirtazapine. 07/28/16: Mirtazapine 7.5mg q HS. WEN recommends that patient needs 24 hours supervision. 07/29/16 Continue current care Cont. current psych. meds BRICE WHITLOCK MD July 29, 2016 17:19
--- NOTE | 2016-07-29 20:00 | NUR ---
Shift Summary Patient is awake at 0815; uses her call light appropriately asking to get ready for the day. She is independent in her cares requiring only set-up help from staff as all of her personal belongings are locked-up per unit policy. She has a routine she follows for hygiene cares that include washing and re-washing her hands, washing the sink then re-washing it; she is meticulous about her clothes and her appearance. She is not demanding of staff's time, is polite and cooperative. All medications are given whole without incident or argument. She is able to make her needs known and has remained pleasant through this shift. Family is here visiting this afternoon and she interacts appropriately with them; no agitation or verbal aggression. Presently she is in her room with family trying on additional clothes they brought for her Addendum: 07/29/16 at 2106 by SOFIA MONROE RN Following supper this county got placed under a [place] in which all patients and staff moved [place] [facility] area. Staff and patients engaged in trivia and word puzzles. Patient is [place] so does not always answer questions right away but answers quickly and appropriately when she knows/can hear
[2016-07-29 20:25] VITALS: BP 140/82; PULSE 96; RESP 18; TEMP 98.9; O2SAT 96
[2016-07-29] MEDS: MIRTAZAPINE 15 MG TABLET PO SCH (20:52)
[2016-07-29] MEDS: TROLAMINE SALICYLATE 85 GM TUBE TOP PRN (20:53)
--- NOTE | 2016-07-29 23:31 | NUR ---
Status Assumed patient care at 1954 and assessment completed at 2024. Patient is in room at time of assessment - has been visiting with family this evening. Is ALOx2 (person and date/time) - states that she doesn't remember where she is at "because I live in [place]." She reorients easily. Trace edema is noted to left ankle/foot and bruising to anterior/interior portion of foot. She states the swelling is from "sitting too much today" and that the bruising occurred from dropping something on her foot while "packing" - she states there was a bruise there before this incident, so she ended up with a "bruise on top of a bruise." Patient ambulates with FWW and stand-by assist; gait is steady. VS are stable. She denies pain/discomfort at time of assessment. Readily compliant with HS medications. No paranoid comments/behaviors are noted. She reports an "okay" appetite. She reports eating "all" of her supper and requests hot chocolate this evening prior to bed. No physical or verbal aggression is noted. She does take approximately 45 minutes with HS cares (performs independently with set-up assist) and is noted to be repetitive at times with things such as washing her face and rearranging her toiletries.
--- NOTE | 2016-07-29 23:52 | NUR ---
Bedtime Patient was in bed by 2230 and asleep by 2300. She slept 1.75 hours on day shift. Sleeping quietly at the current time. Bed alarm is on and side rails are up x2.
--- NOTE | 2016-07-30 00:53 | NUR ---
Chart Check 24 hour chart check completed
[2016-07-30] MEDS: LEVOTHYROXINE 100 MCG TABLET PO SCH (04:54)
--- NOTE | 2016-07-30 06:24 | NUR ---
Summary Patient has been ALOx2 this shift. In a pleasant/cooperative mood. Mostly independent with cares - some set-up/dressing assistance is required. She is accepting/appreciative of staff assistance when needed. Some compulsive/repetitive behaviors are noted with cares. Compliant with medications. No paranoia or aggressive behavior is noted. She appears to have slept well, reporting this morning that "I am sleeping much better than I was." Uses call singh to notify staff of needs. Resting quietly at the current time. Bed alarm is on and side rails are up x2.
[2016-07-30 08:00] VITALS: BP 140/72; PULSE 86; RESP 18; TEMP 99.4; O2SAT 96
[2016-07-30] MEDS: MAGNESIUM OXIDE 400 MG TABLET PO SCH (09:48)
[2016-07-30] MEDS: AMLODIPINE 5 MG TABLET PO SCH (09:48)
[2016-07-30] MEDS: LOSARTAN 50 MG TABLET PO SCH (09:48)
[2016-07-30] MEDS: GABAPENTIN 300 MG CAPSULE PO SCH ×3 (09:48→20:08)
[2016-07-30] MEDS: DICLOFENAC 1% TOPICAL GEL 100 G TUBE TOP SCH ×3 (09:49→20:30)
[2016-07-30] MEDS: CYANOCOBALAMIN (B-12) 500mcg TABLET PO SCH (09:49)
[2016-07-30] MEDS: IBUPROFEN 200 MG TABLET PO SCH ×3 (09:49→19:10)
[2016-07-30] MEDS: ACYCLOVIR 5% OINT 5gm TOP SCH ×3 (09:49→20:31)
--- NOTE | 2016-07-30 11:28 | GENPN ---
Generations Subjective Date DATE: 07/30/16 TIME: 11:26 Subjective/Severity of Illness Medications Current Medications Medications (Trade) Dose Ordered Sig/Ross Start Time Stop Time Status Last Admin Dose Admin Miscellaneous Medication (May use PRN orders) 1 PRN PRN 07/23/16 23:30 Haloperidol (Haldol) 0.5 mg Q6H PRN 07/23/16 23:30 Lorazepam (Ativan) 0.5 mg Q6H PRN 07/23/16 23:30 07/27/16 21:39 0.5 MG Lorazepam (Ativan) 0.5 mg Q6H PRN 07/23/16 23:30 Haloperidol Lactate (Haldol 5 Mg/ml Inj) 0.5 mg Q6H PRN 07/23/16 23:30 Lorazepam (Ativan Intensol) 0.5 mg Q6H PRN 07/23/16 23:30 Haloperidol (Haldol Liquid) 0.5 mg Q6H PRN 07/23/16 23:30 Acyclovir (Zovirax) 1 applic TID 07/24/16 09:00 07/30/16 09:49 1 APPLIC Amlodipine Besylate (Norvasc) 5 mg DAILY 07/24/16 09:00 07/30/16 09:48 5 MG Gabapentin (Neurontin) 100 mg TID 07/24/16 09:00 07/27/16 16:21 DC 07/27/16 15:00 100 MG Ibuprofen (Motrin) 200 mg BID 07/24/16 09:00 07/26/16 11:10 DC 07/26/16 09:48 200 MG Levothyroxine Sodium (Synthroid) 100 mcg ACB 07/24/16 06:30 07/30/16 04:54 100 MCG Losartan Potassium (COZAAR 50 mg) 50 mg DAILY 07/24/16 09:00 07/30/16 09:48 50 MG Magnesium Oxide (Magox) 400 mg DAILY 07/24/16 09:00 07/30/16 09:48 400 MG Trolamine Salicylate (Aspercreme) 1 applic Q4H PRN 07/24/16 03:15 07/25/16 12:41 1 APPLIC Acetaminophen (Tylenol Regular Strength) 650 mg Q5H PRN 07/25/16 02:30 07/25/16 02:56 DC Acetaminophen (Tylenol Regular Strength) 650 mg Q3-4H PRN 07/25/16 03:00 07/27/16 04:14 650 MG Cyanocobalamin (Vit. B-12) 500 mcg DAILY 07/26/16 09:00 07/30/16 09:49 500 MCG Cyclobenzaprine HCl (Flexeril) 5 mg TID PRN 07/25/16 21:00 07/26/16 11:10 DC 07/26/16 06:57 5 MG Ibuprofen (Motrin) 400 mg TIDWM 07/26/16 12:00 07/30/16 09:49 400 MG Gabapentin (Neurontin) 300 mg TID 07/27/16 21:00 07/30/16 09:48 300 MG Diclofenac Sodium (Voltaren 1% Gel) 1 applic TID 07/27/16 21:00 07/30/16 09:49 1 APPLIC Mirtazapine (Remeron) 7.5 mg HS 07/28/16 21:00 07/29/16 20:52 7.5 MG Subjective Pt seen and chart examined. Nursing reports pt is doing well on the unit. Sleeping well and has a good appetite. No behaviors noted. On face to face the pt is pleasant but confused. She is only oriented to self. She reports she continues to deal with some knee pain. She reports her mood is stable. Denies S/I or psychosis. Tolerating meds Time of Service: 11:00 Start Time: 11:00 Stop Time: 11:15 Care >50% of this visit spent in counseling/coordination care. Generations Exam Vitals Vital Signs Date Time Temp Pulse Resp B/P Pulse Ox O2 Delivery O2 Flow Rate FiO2 07/29/16 20:25 98.9 96 18 140/82 96 Room Air Physical examination performed by the hospitalist. Height (Feet): 5 Height (Inches): 1.00 Mental Status Exam Muscle Strength/Tone: Normal Dressing: Casual Grooming: Good Attitude: Cooperative Motor Activity: Normal Eye Contact: Good Speech: Normal Volume: Normal Rhythm: Appropriate Rhythm Sensory: Alert Orientation: Oriented to person Mood: Euthymic Affect: Congruent Rate of Thoughts: Delayed Thought Organization: [place] Associations: Intact Abstract Reasoning: Impaired, concrete Thought Content: Normal Perception/Psychotic: Perception Normal Attention Span/Concentration: Short Span Fund of Knowledge: Poor fund of knowledge Memory: Poor-immediate, Poor-recent Suicidal Ideation: None Homicidal Ideation: None Insight: Fair Judgment: Fair Impulse Control: Fair Assessment and Plan (1) Major neurocognitive disorder due to Alzheimer's disease, probable, with behavioral disturbance Assessment: likely, rule out vascular dementia, does have hx of TIAs so may be mixed presentation also. also consider lewy body given the reportedly strong visual hallucination component. 07/25/16: Observe patient on the unit. Wen/GWEN eval and consult Podiatry for her nails. 07/26/16: DC Flexeril and increase Ibuprofen to 400mg TID. Diclofenac gel TID. Awaiting Gwen and wen 07/27/16: Voltaren gel TID for pain. Will consider starting Memantine 5mg daily after family consent. Secondly, given patients poor sleep, appetite and ritualistic behavior, she may be benefit from Mirtazapine. 07/28/16: Mirtazapine 7.5mg q HS. WEN recommends that patient needs 24 hours supervision. 07/29/16 Continue current care 07/30/16 Continue current care. Daughter working on placement Cont. current psych. meds BRICE WHITLOCK MD July 30, 2016 11:28
--- NOTE | 2016-07-30 12:55 | NUR ---
Status/Slept 9.25 hrs Pt awake at 0800 this morning. Pt up with one person assist and FWW. Pt is able to do most of her morning cares by herself with set up help only. Pt does take quite a while getting ready in the mornings. Pt ate 100% of breakfast and 50% of lunch. Pt does complain of lt knee pain, does state Motrin and Neurontin help with this. Pt states she isn't sure what is wrong with her knee. Pt stayed out in dayroom for a little while after breakfast, then request to go back to room. Pt at lunch request to eat in room, due to having knee pain and wanting to be closer to the BR. Pt is now resting in bed, takes Meds without difficulty. No behaviors noted.
[2016-07-30 16:50] VITALS: BP 134/75; PULSE 85; RESP 14; TEMP 98.5; O2SAT 94
--- NOTE | 2016-07-30 18:24 | NUR ---
Shift summary Pt continues to be cooperative with cares, pt visited with other pts this afternoon. Pt has been in the BR for the last hour, pt has had multiple small BM says "I'm just not done yet". BMs are soft, formed, brown. Pt has taken all Meds today without difficulty. Pt hasn't said anything negative about her family today. No physical or verbal aggression noted. No prns given.
[2016-07-30 19:40] VITALS: BP 155/74; PULSE 81; RESP 18; TEMP 98.8; O2SAT 100
[2016-07-30] MEDS: MIRTAZAPINE 15 MG TABLET PO SCH (20:07)
[2016-07-30] MEDS: ACETAMINOPHEN 325 MG TABLET PO PRN (22:45)
--- NOTE | 2016-07-30 22:56 | NUR ---
Status/PRN Assumed patient care at 1914 and assessment completed at 1939. Patient is eating a late supper in the dining room at time of assessment. She is ALOx3 ("[facility]") and in a pleasant/talkative mood. Reminisces at length about her family; shares stories of when her children were little and of the trips they had taken. VS are stable. She c/o pain to her right hip with sitting and to her right knee when ambulating (Motrin given at 1909 per previous shift RN). Ambulates with a slow/steady gait; has a slight right leg limp with ambulating. Compulsive/repetitive behaviors with HS cares and takes greater than an hour to complete. For example: will void, spend a great deal of time cleaning herself, then will sit down to void again - she does this multiple times but denies constipation or dysuria. She is also noted to wash her face, dry it, apply lotion, then wash it again - doing this multiple times. She states she has "a routine" and ignores both encouragement to complete steps and cueing that she has already completed certain tasks. Tylenol 650 mg. is given po at 5 for right hip/right knee pain (unable to rate) and "cramping" to left ankle. Left lower leg extremity is unchanged from previous assessment; palpable pedal pulses, warm to touch, appropriate coloring, good sensation, and no increase in swelling or discoloration. She refuses offered heating pad. Compliant with all medications this evening (she does ask for a review of routine medications with HS administration - states understanding). No negative/paranoid comments are made regarding family members. She states that she would like to return home with her daughter even though they "have talked some about placement." Patient reports an "okay" appetite - she ate 95% of her supper. No physical aggression is exhibited.
--- NOTE | 2016-07-31 00:04 | NUR ---
Bedtime Patient was in bed by 2144. She dozes only briefly then falls asleep by 2314 (following Tylenol administration). She slept 0.5 hours on day shift.
--- NOTE | 2016-07-31 00:54 | NUR ---
Chart Check 24 hour chart check completed
--- NOTE | 2016-07-31 06:12 | NUR ---
Summary Patient has been ALOx3 this shift although forgetfulness is noted. Conversational and in a pleasant/cooperative mood. Compliant with medications and without noted negativity/paranoia in her comments regarding her family. No physical aggression is noted. She does exhibit repetitive behaviors with cares, taking an extended amount of time to complete cares last evening (less so overnight). Complains of discomfort right hip and knee this shift - settles down to sleep following prn Tylenol. She uses the call singh appropriately to notify staff of needs. Up to bathroom x2 overnight but otherwise appears to sleep well.
[2016-07-31] MEDS: LEVOTHYROXINE 100 MCG TABLET PO SCH (06:20)
[2016-07-31 08:00] VITALS: BP 153/73; PULSE 77; RESP 16; TEMP 97.7; O2SAT 97
[2016-07-31 08:30] VITALS: PULSE 77; RESP 16
--- NOTE | 2016-07-31 09:28 | GENPN ---
[facility] Subjective Date DATE: 07/31/16 TIME: 09:25 Subjective/Severity of Illness Medications Current Medications Medications (Trade) Dose Ordered Sig/Ross Start Time Stop Time Status Last Admin Dose Admin Miscellaneous Medication (May use PRN orders) 1 PRN PRN 07/23/16 23:30 Haloperidol (Haldol) 0.5 mg Q6H PRN 07/23/16 23:30 Lorazepam (Ativan) 0.5 mg Q6H PRN 07/23/16 23:30 07/27/16 21:39 0.5 MG Lorazepam (Ativan) 0.5 mg Q6H PRN 07/23/16 23:30 Haloperidol Lactate (Haldol 5 Mg/ml Inj) 0.5 mg Q6H PRN 07/23/16 23:30 Lorazepam (Ativan Intensol) 0.5 mg Q6H PRN 07/23/16 23:30 Haloperidol (Haldol Liquid) 0.5 mg Q6H PRN 07/23/16 23:30 Acyclovir (Zovirax) 1 applic TID 07/24/16 09:00 07/30/16 20:31 1 APPLIC Amlodipine Besylate (Norvasc) 5 mg DAILY 07/24/16 09:00 07/30/16 09:48 5 MG Gabapentin (Neurontin) 100 mg TID 07/24/16 09:00 07/27/16 16:21 DC 07/27/16 15:00 100 MG Ibuprofen (Motrin) 200 mg BID 07/24/16 09:00 07/26/16 11:10 DC 07/26/16 09:48 200 MG Levothyroxine Sodium (Synthroid) 100 mcg ACB 07/24/16 06:30 07/31/16 06:20 100 MCG Losartan Potassium (COZAAR 50 mg) 50 mg DAILY 07/24/16 09:00 07/30/16 09:48 50 MG Magnesium Oxide (Magox) 400 mg DAILY 07/24/16 09:00 07/30/16 09:48 400 MG Trolamine Salicylate (Aspercreme) 1 applic Q4H PRN 07/24/16 03:15 07/25/16 12:41 1 APPLIC Acetaminophen (Tylenol Regular Strength) 650 mg Q5H PRN 07/25/16 02:30 07/25/16 02:56 DC Acetaminophen (Tylenol Regular Strength) 650 mg Q3-4H PRN 07/25/16 03:00 07/30/16 22:45 650 MG Cyanocobalamin (Vit. B-12) 500 mcg DAILY 07/26/16 09:00 07/30/16 09:49 500 MCG Cyclobenzaprine HCl (Flexeril) 5 mg TID PRN 07/25/16 21:00 07/26/16 11:10 DC 07/26/16 06:57 5 MG Ibuprofen (Motrin) 400 mg TIDWM 07/26/16 12:00 07/30/16 19:10 400 MG Gabapentin (Neurontin) 300 mg TID 07/27/16 21:00 07/30/16 20:08 300 MG Diclofenac Sodium (Voltaren 1% Gel) 1 applic TID 07/27/16 21:00 07/30/16 20:30 1 APPLIC Mirtazapine (Remeron) 7.5 mg HS 07/28/16 21:00 07/30/16 20:07 7.5 MG Subjective Pt seen and chart examined. Nursing reports pt is doing well on the unit. Sleeping well and has a good appetite. No behaviors noted. On face to face the pt is pleasant but confused. She is only oriented to self. Pt states she is doing well. She continues to deal with some chronic knee pain but no other concerns. Tolerating meds Time of Service: :15 Start Time: :15 Stop Time: 09:30 Care >50% of this visit spent in counseling/coordination care. [facility] Exam Vitals Vital Signs Date Time Temp Pulse Resp B/P Pulse Ox O2 Delivery O2 Flow Rate FiO2 07/30/16 19:40 98.8 81 18 155/74 100 Room Air Physical examination performed by the hospitalist. Height (Feet): 5 Height (Inches): 1.00 Mental Status Exam Muscle Strength/Tone: Normal Dressing: Casual Grooming: Good Attitude: Cooperative Motor Activity: Retardation Eye Contact: Good Speech: Normal Volume: Soft Rhythm: Appropriate Rhythm Sensory: Alert Orientation: Oriented to person Mood: Neutral Affect: Congruent Rate of Thoughts: Delayed Thought Organization: [place] Associations: Intact Abstract Reasoning: Impaired, concrete Thought Content: Normal Perception/Psychotic: Perception Normal Attention Span/Concentration: Short Span Fund of Knowledge: Poor fund of knowledge Memory: Poor-immediate, Poor-recent Suicidal Ideation: None, Intermittent Homicidal Ideation: None Insight: Fair Judgment: Fair Impulse Control: Fair Assessment and Plan (1) Major neurocognitive disorder due to Alzheimer's disease, probable, with behavioral disturbance Assessment: likely, rule out vascular dementia, does have hx of TIAs so may be mixed presentation also. also consider lewy body given the reportedly strong visual hallucination component. 07/25/16: Observe patient on the unit. Wen/GWEN eval and consult Podiatry for her nails. 07/26/16: DC Flexeril and increase Ibuprofen to 400mg TID. Diclofenac gel TID. Awaiting Gwen and wen 07/27/16: Voltaren gel TID for pain. Will consider starting Memantine 5mg daily after family consent. Secondly, given patients poor sleep, appetite and ritualistic behavior, she may be benefit from Mirtazapine. 07/28/16: Mirtazapine 7.5mg q HS. WEN recommends that patient needs 24 hours supervision. 07/29/16 Continue current care 07/30/16 Continue current care. Daughter working on placement 07/31/16 Continue current care Cont. current psych. meds BRICE WHITLOCK MD July 31, 2016 09:28
[2016-07-31] MEDS: GABAPENTIN 300 MG CAPSULE PO SCH ×3 (09:35→20:23)
[2016-07-31] MEDS: CYANOCOBALAMIN (B-12) 500mcg TABLET PO SCH (09:35)
[2016-07-31] MEDS: LOSARTAN 50 MG TABLET PO SCH (09:35)
[2016-07-31] MEDS: IBUPROFEN 200 MG TABLET PO SCH ×3 (09:35→17:32)
[2016-07-31] MEDS: ACYCLOVIR 5% OINT 5gm TOP SCH ×3 (09:36→20:24)
[2016-07-31] MEDS: DICLOFENAC 1% TOPICAL GEL 100 G TUBE TOP SCH ×3 (09:36→20:25)
[2016-07-31] MEDS: AMLODIPINE 5 MG TABLET PO SCH (09:36)
[2016-07-31] MEDS: MAGNESIUM OXIDE 400 MG TABLET PO SCH (09:36)
--- NOTE | 2016-07-31 12:25 | NUR ---
SLEEP NOTE Patient woke up at 8 am this morning, slept a total of 9 hr last night.
--- NOTE | 2016-07-31 12:29 | NUR ---
STATUS patient has been pleasant, cooperative with cares, compliant with medications, pleasant mood, no inappropriate behaviors noted, she is able to make needs known, complain of some discomfort on her right leg, schedule ibuprofen was given and diclofecan creme applied. Patient denies needs or concerns at the moment.
[2016-07-31 16:15] VITALS: BP 130/70; PULSE 73; RESP 16; TEMP 98; O2SAT 96
--- NOTE | 2016-07-31 18:05 | NUR ---
SHIFT SUMMARY Patient is AO x 3, she has been pleasant, cooperative with cares, and compliant with medications. Patient has been in a happy mood, smiles often, she is able to make needs known, Patient said she had some discomfort on her right leg, schedule ibuprofen was given, she has been stretching her leg muscles as order. No inappropriate behaviors noted, no hallucinations, delusions, or aggression noted. Patient denies needs or concerns at the moment.
[2016-07-31 19:26] VITALS: BP 161/85; PULSE 84; RESP 16; TEMP 97.4; O2SAT 96
[2016-07-31] MEDS: MIRTAZAPINE 15 MG TABLET PO SCH (20:23)
[2016-07-31 20:38] VITALS: RESP 16
--- NOTE | 2016-07-31 22:50 | NUR ---
Status Pt sitting in DR visiting with family at start of this shift. She is a/o x 3, up with walker and assist x 1. Pt also visited with several other female pts, conversation was appropriate. Pts family brought more items in and took clothing to be laundered. New items added to inventory and items that were removed were written down and signed by this RN and pts daughter. This was placed at the front of the chart. Pt was cooperative with VS, assessment and bed time cares. Pt went to bed at 2145 and asleep by 2200 and currently sleeping. Bed is in low position, locked, SR up x 2, call light in reach, bed alarm is on and functioning. Will continue to monitor.
--- NOTE | 2016-08-01 00:15 | NUR ---
Chart Check 24 hour chart check completed
[2016-08-01] MEDS: LEVOTHYROXINE 100 MCG TABLET PO SCH (05:49)
--- NOTE | 2016-08-01 06:18 | NUR ---
Summary/sleep Pt in bed at 5, she fell asleep from 3570-3664 up to the BR and pt stated she didn't have cramps in her legs at this time. Pt back to sleep from 7613-1023 up to BR and asleep from 0430-to present. Pt has slept total of 7hrs 15 minutes. Pt had no c/o pain this shift, no PRNs given. Staff and family agree that pt is doing better. Granddaughter commented to this RN whatever that medication is that you started her on is working good. She isn't as mean as she used to be. Family educated about Remeron. HS cares only took pt 30 minutes to complete instead of the hour to hour and a half it has been taking her. Pt has been very cooperative. Bed in low position, locked, call light in reach and used appropriately, bed alarm is on and functioning. Will continue to monitor.
[2016-08-01 08:00] VITALS: BP 153/74; PULSE 80; RESP 16; TEMP 98.2; O2SAT 98
[2016-08-01] MEDS: DICLOFENAC 1% TOPICAL GEL 100 G TUBE TOP SCH ×3 (09:00→19:45)
[2016-08-01] MEDS: ACYCLOVIR 5% OINT 5gm TOP SCH ×3 (09:00→19:46)
[2016-08-01] MEDS: AMLODIPINE 5 MG TABLET PO SCH (09:13)
[2016-08-01] MEDS: LOSARTAN 50 MG TABLET PO SCH (09:13)
[2016-08-01] MEDS: MAGNESIUM OXIDE 400 MG TABLET PO SCH (09:13)
[2016-08-01] MEDS: GABAPENTIN 300 MG CAPSULE PO SCH ×3 (09:13→19:45)
[2016-08-01] MEDS: IBUPROFEN 200 MG TABLET PO SCH ×3 (09:13→16:57)
[2016-08-01] MEDS: CYANOCOBALAMIN (B-12) 500mcg TABLET PO SCH (09:14)
--- NOTE | 2016-08-01 09:56 | NUR ---
Status/Sleep 8 hrs Pt slept a total of 8 hours overnight. Pt is pleasant and cooperative with cares and assessment this morning. Pt is able to get dressed mostly by herself this morning, did need a little help with her jacket. Pt does take a while getting ready in the morning, but she is able to do cares with just stand by assistance. Pt is able to make needs known. Pt does complain of Rt knee pain, when first getting out of bed. Pt given scheduled pain Meds, pt states if feels better doesn't hurt when sitting still, but is stiff with movement. Pt ate 75% of breakfast, is now sitting in group therapy listening to music.
--- NOTE | 2016-08-01 10:44 | NUR ---
CREDIT ADMINISTRATION SPECIALIST--AM GROUP Pt. was late coming to AM psychoeducational group facilitated by [facility]. She is a very slow eater and she took long time finishing her breakfast. She missed the discussion on managing anxiety symptoms. She joined about the time the group was listening to variety of music. She did attempt to answer questions about about songs and artists. Pt. smiled and appeared relaxed during time she spent in group.
[2016-08-01] MEDS ORDERED: MILK OF MAGNESIA 30 ML SUSP PO PRN (13:45)
--- NOTE | 2016-08-01 14:00 | NUR ---
BODS DEVELOPER--FAMILY CONTACT [facility] received phone call from Jacqueline Terrell, patient's daughter. She asked if she could meet with this SW tomorrow instead of today in order to review the results of the cognitive testing with the patient. This SW agreed to meet with the daughter tomorrow at 2:00.
--- NOTE | 2016-08-01 14:12 | DI ---
Indication: ITS.REASON: KNEE PAIN KNEE RIGHT 3 VIEWS Comparison: None Findings: Patient shows three compartment degenerative changes with most prominent findings medially. No acute fractures are seen. The patellofemoral joint is narrowed. Patient does show a suprapatellar joint effusion Impression: Three compartment degenerative changes without acute fractures with a suprapatellar joint effusion. .
--- NOTE | 2016-08-01 14:17 | PNPDOC ---
Subjective Date DATE: 08/01/16 TIME: 14:06 Subjective Margoth is seen today in follow up. She complains of having right knee pain and medial swelling. Denies injury to right knee, she complains of pain with ambulation only. She is able to flex and extend right leg without difficulty. Noted swelling to the medial aspect of knee. Otherwise no other complaints. Objective Vital Signs Vital signs Vital Signs Date Time Temp Pulse Resp B/P Pulse Ox O2 Delivery O2 Flow Rate FiO2 08/01/16 08:00 98.2 80 16 153/74 98 Room Air Height (Feet): 5 Height (Inches): 1.00 Weight (Kilograms): 63.000 General General Appearance: Alert, Orientated x 3, Cooperative, No Acute Distress Eyes (Brief) Eyes: FOUND: EOMI ENMT (Brief) ENMT: FOUND: mucosa moist, normal dentition, NOT FOUND: pharnyx erythema Neck (Brief) Neck: FOUND: midline, NOT FOUND: adenopathy, carotid bruits, tracheal deviation Respiratory (Brief) Respiratory: FOUND: clear all whyte, equal bilaterally, NOT FOUND: wheezes Cardiovascular (Brief) Cardiac: FOUND: regular rate, regular rhythm, NOT FOUND: murmur, pedal edema Capillary Refill: <2 sec Abdomen (Brief) Abdominal: FOUND: BS normo active x4, soft, NOT FOUND: distended, tender Lymphatic (Brief) Lymphatic: NOT FOUND: adenopathy Musculoskeletal (Brief) Musculoskeletal: FOUND: tenderness (Right medial knee tenderness) Integumentary (Brief) Integumentary: FOUND: dry, pink, warm Neurologic (Brief) Neurological: FOUND: cranial 2-12 intact Psychiatric (Brief) Psychiatric: FOUND: alert, attentive, normal affect, oriented Assessment & Plan Problems: (1) Cognitive and behavioral changes Status: Acute (2) Cramps of lower extremity Status: Acute Assessment & Plan: Patient seen and examined independently on the same day. Read and agree with Leta Hitchcock examine and assessment. Will repeat potassium level and at a magnesium level to this for the morning. Considering supplemental low-dose oral potassium and magnesium see if this helps with symptoms (3) HTN (hypertension) Status: Chronic (4) Hypothyroidism Status: Chronic (5) History of TIAs Status: Resolved Plan/Intensity of Service 08/01/16 Will obtain Right knee X-ray. Have nursing place dom wrap to right knee for compression. Place ice pack to medical aspect to help with swelling. Encouraged use of Voltaren gel, Aspercreme,Ibuprofen and Tylenol for pain control. Nursing staff reports patient spends 1-2 hours on the toilet daily attempting to have a bowel movement. Will add schedule Miralax daily. Code Status Do Not Resuscitate Hospital Course Summary Disclaimer The hospital course summary below is not to be considered part of the above Progress Note. Hospital Course Summary 07/24/[address] [facility] for further psychiatric evaluation and treatment Given lower extremity cramping. Will check BMP and magnesium level now. She does take a oral magnesium supplementation Monitor blood pressure and continue on Norvasc and Cozaar Encourage patient to participate in unit activities and provide a safe environment. The hospitalist services will continue to follow patient and medical management of her existing comorbidities during her stay on the [facility]. At time of discharge medical care will return to her primary care provider, Dr.Trenton Gardner 07/25/16 Labs reviewed - hgb A1c 6%; TSH, prealbumin were normal. B12 was low end of normal range - will start replacement. RPR pending. UA and CBC done at outside facility were not impressive. BP moderately elevated since arrival - prefer to monitor for a couple more days before recommending any changes to antihypertensives. Supportive care for leg cramps/pain - Aspercreme, icy hot, ibuprofen, ice bag or heat. Psychiatric admission note reviewed: r/o vascular dementia, lewy body dementia, delirium. 07/27/16: [facility]. Overall, Margoth is doing well and medically stable. Continue psychiatric treatment per Dr. Johnson and team. Psychiatric admission note reviewed: r/o vascular dementia, lewy body dementia, delirium. Continue supportive care for leg cramps/pain - Aspercreme, icy hot, ibuprofen, ice bag or heat. Continue to monitor blood pressure closely. Stable with systolic in the 140's. Repeat CBC and BMP in AM to monitor blood counts, electrolytes and renal function. Continue to provide safe and supportive environment. Case management working on discharge plan with possible admission to [place]. 08/01/16 Will obtain Right knee X-ray. Have nursing place dom wrap to right knee for compression. Place ice pack to medical aspect to help with swelling. Encouraged use of Voltaren gel, Aspercreme,Ibuprofen and Tylenol for pain control. Nursing staff reports patient spends 1-2 hours on the toilet daily attempting to have a bowel movement. Will add schedule Miralax daily. GUS SIMMONS V REGIONAL OWNER OPERATOR TRUCK DRIVER August 01, 2016 14:10
--- NOTE | 2016-08-01 14:38 | NUR ---
BIJAN CM SPOKE WITH PT MAURICIO BROWN AND SHE IS AWARE THAT PT IS ANTICIPATED TO D/C TOMORROW. KEVIN PLANS TO PEDIATRIC CLINICAL DIETICIAN PT TOMORROW AT 2:00PM. KEVIN IS AWARE THAT IF D/C PLAN CHANGES THAT CM WILL NOTIFY HER IN THE AM. KEVIN AWARE TO CONTACT CM IF NEEDS ARISE.
[2016-08-01] MEDS: POLYETHYL.GLYCOL 3350 PACKET 17gm PO SCH (15:30)
--- NOTE | 2016-08-01 16:07 | NUR ---
BANK BOSS--PM GROUP Pt did not participate in group.
[2016-08-01 16:21] VITALS: BP 152/78; PULSE 73; RESP 16; TEMP 98; O2SAT 97
--- NOTE | 2016-08-01 18:35 | NUR ---
Shift Summary Pt continues to be pleasant and cooperative. Pt continues to complain of pain to the Rt. knee. Scheduled pain Meds do seem to help. Shannan ROLLINS did come and look at it today and an X-ray was done as well. Ice and dom wrap applied to knee per orders. Pt did spend about and hour and a half in the BR this afternoon. Kianna started to see if this would help with this. Pt will has a small BM, wipe several times, flush the toilet and then the process starts all over. Pt ate 100% of supper. Visited with the and is now watching [employer]. Pt did take a hour and a 1/2 hour nap today. No behaviors noted, no prns given this shift.
[2016-08-01 19:20] VITALS: BP 147/75; PULSE 85; RESP 16; TEMP 97.4; O2SAT 95
[2016-08-01] MEDS: MIRTAZAPINE 15 MG TABLET PO SCH (19:45)
[2016-08-01] MEDS: ACETAMINOPHEN 325 MG TABLET PO PRN (21:15)
[2016-08-01] MEDS ORDERED: MIRT15TA6 PO (22:23)
[2016-08-01] MEDS ORDERED: GABA300C PO (22:23)
[2016-08-01 23:22] VITALS: PULSE 85; RESP 16
--- NOTE | 2016-08-01 23:27 | NUR ---
Status Pt. is pleasant and compliant with cares and assessment. Pt. does complain of pain in her right Knee. The knee is wrapped with an dom bandage. Pt. transfers with a FWW and is fairly steady. Pt. is given Tylenol 650mg PO at 2115 and rates pain 10/10 with movement. PT. takes approximately 1.25 hours to complete hygiene cares. Pt. is resting in bed with the bed alarm activated and SR up x2.
[2016-08-02] MEDS: LEVOTHYROXINE 100 MCG TABLET PO SCH (05:45)
--- NOTE | 2016-08-02 05:49 | NUR ---
Summary arrived on shift, Patient had bright and happy affect. Patient had just finished getting ready for bed. Pleasant and cooperative with assessment. No complaints of pain or discomfort at that time. Patient was asleep at 2300 and slept until 0545. Patient took morning medication whole without issue and is currently in the restroom for hygiene cares with staff present.
[2016-08-02 08:14] VITALS: BP 181/101; PULSE 79; RESP 18; TEMP 96.6; O2SAT 96
[2016-08-02] MEDS: MAGNESIUM OXIDE 400 MG TABLET PO SCH (08:14)
[2016-08-02] MEDS: POLYETHYL.GLYCOL 3350 PACKET 17gm PO SCH (08:14)
[2016-08-02] MEDS: AMLODIPINE 5 MG TABLET PO SCH (08:14)
[2016-08-02] MEDS: GABAPENTIN 300 MG CAPSULE PO SCH ×2 (08:14→15:03)
[2016-08-02] MEDS: CYANOCOBALAMIN (B-12) 500mcg TABLET PO SCH (08:14)
[2016-08-02] MEDS: ACYCLOVIR 5% OINT 5gm TOP SCH ×2 (08:15→15:00)
[2016-08-02] MEDS: LOSARTAN 50 MG TABLET PO SCH (08:15)
[2016-08-02] MEDS: DICLOFENAC 1% TOPICAL GEL 100 G TUBE TOP SCH ×2 (08:15→15:00)
[2016-08-02] MEDS: IBUPROFEN 200 MG TABLET PO SCH ×2 (08:17→12:33)
--- NOTE | 2016-08-02 09:28 | NUR ---
status pt woke this am at 0545 for the bathroom. back asleep at 0615. pt woke again at 0800 for the bathroom. total sleep hrs are 7.0. pt requests to stay in bed a while this am. states she is cold and just doesn't want to get up. pt compliant with am meds. denies any pain this am states she just feels stiff. pt refused breakfast, states she is not hungry, does drink OJ and coffee.
--- NOTE | 2016-08-02 09:54 | NUR ---
LINING FELLER BLINDSTITCH--D/C APPTS / Dtr called Appts set for pt to see PCP, Nikolas Gardner on 08/09/16 @ 10:15am and SYLVIA Good in the [place] office on 08/10/16 @1pm. Pt will be able to see another provider in another town once initial meeting has occurred. Dtr was called to alert of these appts. She was unaware that pt would need to see someone for med mgmt. Also, she wanted to know if it was "against the law" if pt did not go into a facility as suggested. SW explained that it was our recommendation that the pt receive a higher level of care because pt has progressed with her disease. Daughter agreed that pt had progressed but she was not sure how soon they could get the pt into a facility and therefore wanted to know if it was against the law. SW explained it would be a good conversation to have with SW and pt when she comes to take her home this afternoon for D/C.
[2016-08-02] MEDS ORDERED: IBUP-1724 PO (10:23)
[2016-08-02] MEDS ORDERED: ACET-2321 PO (10:23)
[2016-08-02] MEDS ORDERED: TROL85CR8 TOP (10:23)
[2016-08-02] MEDS ORDERED: CYAN500T2 PO (10:23)
[2016-08-02] MEDS ORDERED: DICL100G5 TOP (10:23)
[2016-08-02] MEDS ORDERED: POLY17PO18 PO (10:23)
--- NOTE | 2016-08-02 10:30 | NUR ---
COMPRESSOR OPERATOR PORTABLE--AM GROUP Pt. had gone back to bed to take a nap after getting up early this morning. She did not participate in group.
--- NOTE | 2016-08-02 15:00 | NUR ---
DEICER INSPECTOR ELECTRIC--FAMILY/PATIENT CONTACT Per daughter's request (Jacqueline Terrell), [facility] met with daughter and patient to review results of pt's cognitive testing done during her hospital. Pt. was Ox3. She knew her name, that she was in the hospital and going home today, and that it was August 02. This SW reviewed results of SLUMS, RIPPA, and LANCE. Explained to patient that the tests do confirm that she has some impairment that warrants a dx. of major neurocognitive impairment (dementia). Provided handouts on CAREGIVING and stages of the disease. Encouraged patient to stay as active as possible and to remain as social as she physically is able. Pt. knows her daughter is looking for placement and she states she wants to live and eventually in the home she shares with her daughter and granddaughter. Pt. was reminded about emotional and physical strain of caregiving and she admits how hard it was to take care of her when he was dying. Pt. does recognize that her daughter has some health issues. She was encouraged to go with her daughter to visit the facilities and to help make the decision of where she will be moving. Pt. asked about how to mend the relationships with her three sons. Talked about ways she can outreach them through a letter. Pt. recognizes that healing may not occur, but she will know in her heart she gave it her best shot. Pt. encouraged to focus on finding the narcisa in every day. Pt. admitted she had hoped the tests would show the doctor had been wrong. She stated, "I wished I didn't have this." Pt's feelings were validated and the daughter provided words of encouragement and love.
--- NOTE | 2016-08-02 16:04 | NUR ---
Discharge Report called to "_Jacqueline"; unit contact information given along with plans for follow-up care with PCP and MH professional as outlined in PHS. No pending labs on discharge pt is discharged back to home with her daughter. all personal belongings were returned. pt is in stable condition upon discharge. pt is taken to personal vehicle via wheelchair. pt accompanied by her daughter and [facility] staff.
--- NOTE | 2016-08-02 17:58 | GENPN ---
[facility] Subjective Date DATE: 08/01/16 TIME: 22:16 Subjective/Severity of Illness Medications Current Medications Medications (Trade) Dose Ordered Sig/Ross Start Time Stop Time Status Last Admin Dose Admin Miscellaneous Medication (May use PRN orders) 1 PRN PRN 07/23/16 23:30 Haloperidol (Haldol) 0.5 mg Q6H PRN 07/23/16 23:30 Lorazepam (Ativan) 0.5 mg Q6H PRN 07/23/16 23:30 07/27/16 21:39 0.5 MG Lorazepam (Ativan) 0.5 mg Q6H PRN 07/23/16 23:30 Haloperidol Lactate (Haldol 5 Mg/ml Inj) 0.5 mg Q6H PRN 07/23/16 23:30 Lorazepam (Ativan Intensol) 0.5 mg Q6H PRN 07/23/16 23:30 Haloperidol (Haldol Liquid) 0.5 mg Q6H PRN 07/23/16 23:30 Acyclovir (Zovirax) 1 applic TID 07/24/16 09:00 08/01/16 19:46 1 APPLIC Amlodipine Besylate (Norvasc) 5 mg DAILY 07/24/16 09:00 08/01/16 09:13 5 MG Gabapentin (Neurontin) 100 mg TID 07/24/16 09:00 07/27/16 16:21 DC 07/27/16 15:00 100 MG Ibuprofen (Motrin) 200 mg BID 07/24/16 09:00 07/26/16 11:10 DC 07/26/16 09:48 200 MG Levothyroxine Sodium (Synthroid) 100 mcg ACB 07/24/16 06:30 08/01/16 05:49 100 MCG Losartan Potassium (COZAAR 50 mg) 50 mg DAILY 07/24/16 09:00 08/01/16 09:13 50 MG Magnesium Oxide (Magox) 400 mg DAILY 07/24/16 09:00 08/01/16 09:13 400 MG Trolamine Salicylate (Aspercreme) 1 applic Q4H PRN 07/24/16 03:15 07/25/16 12:41 1 APPLIC Acetaminophen (Tylenol Regular Strength) 650 mg Q5H PRN 07/25/16 02:30 07/25/16 02:56 DC Acetaminophen (Tylenol Regular Strength) 650 mg Q3-4H PRN 07/25/16 03:00 08/01/16 21:15 650 MG Cyanocobalamin (Vit. B-12) 500 mcg DAILY 07/26/16 09:00 08/01/16 09:14 500 MCG Cyclobenzaprine HCl (Flexeril) 5 mg TID PRN 07/25/16 21:00 07/26/16 11:10 DC 07/26/16 06:57 5 MG Ibuprofen (Motrin) 400 mg TIDWM 07/26/16 12:00 08/01/16 16:57 400 MG Gabapentin (Neurontin) 300 mg TID 07/27/16 21:00 08/01/16 19:45 300 MG Diclofenac Sodium (Voltaren 1% Gel) 1 applic TID 07/27/16 21:00 08/01/16 19:45 1 APPLIC Mirtazapine (Remeron) 7.5 mg HS 07/28/16 21:00 08/01/16 19:45 7.5 MG Polyethylene Glycol (Miralax) 17 g DAILY 08/01/16 13:45 08/01/16 15:30 17 G Magnesium Hydroxide (Mom) 30 ml DAILY PRN 08/01/16 13:45 Subjective Patient seen and chart reviewed. Case discussed with treatment team. On interview, patient is pleasantly confused and enjoys telling me stories about earlier in her life. She reports that she was sad about leaving her previous life to move to [place] but now is feeling more optimistic and is very appreciative of her daughter. Patient denies any paranoia, SI, HI or AVH. Patient denies any adverse side effects related to psychotropic medications. Nursing staff report patient has overall been cooperative though she continues to take a long time to toilet due to ritualistic behaviors. She is constipated and so Miralax was given today. Patient slept 8 hours overnight. VSS. Patient is eating well. Psychotropic PRNs required in the past 24 hours: none. Time of Service: :15 Start Time: 18:40 Stop Time: 19:00 Care >50% of this visit spent in counseling/coordination care. [facility] Exam Vitals Vital Signs Date Time Temp Pulse Resp B/P Pulse Ox O2 Delivery O2 Flow Rate FiO2 08/01/16 19:20 97.4 85 16 147/75 95 Room Air Physical examination performed by the hospitalist. Height (Feet): 5 Height (Inches): 1.00 Mental Status Exam Muscle Strength/Tone: Normal Dressing: Casual Grooming: Good Attitude: Cooperative Motor Activity: Normal Eye Contact: Good Speech: Normal Volume: Normal Rhythm: Appropriate Rhythm Sensory: Alert Orientation: Oriented to person, Oriented to place, Oriented to time Mood: Neutral Affect: Congruent, Stable Rate of Thoughts: Appropriate Rate Thought Organization: Tangential Associations: Intact Abstract Reasoning: Poor abstract reasoning Thought Content: Ruminations (improved) Perception/Psychotic: Perception Normal Attention Span/Concentration: Normal Language: Naming Intact Fund of Knowledge: Lisa aware current events Memory: Grossly Intact Suicidal Ideation: Denies Homicidal Ideation: Denies Insight: Limited Judgment: Limited Impulse Control: Good Assessment and Plan (1) Major neurocognitive disorder due to Alzheimer's disease, probable, with behavioral disturbance Assessment: likely, rule out vascular dementia, does have hx of TIAs so may be mixed presentation also. 07/25/16: Observe patient on the unit. Wen/GWEN eval and consult Podiatry for her nails. 07/26/16: DC Flexeril and increase Ibuprofen to 400mg TID. Diclofenac gel TID. Awaiting Gwen and wen 07/27/16: Voltaren gel TID for pain. Will consider starting Memantine 5mg daily after family consent. Secondly, given patients poor sleep, appetite and ritualistic behavior, she may be benefit from Mirtazapine. 07/28/16: Mirtazapine 7.5mg q HS. WEN recommends that patient needs 24 hours supervision. 07/29/16 Continue current care 07/30/16 Continue current care. Daughter working on placement 07/31/16 Continue current care. 08/01/16: Patient doing well overall - plan to discharge home with daughter on with recommendation for 24/7 supervision for safety. May consider tolerating mirtazapine further as outpatient. Cont. current psych. meds MALLIKA CHAU MD August 01, 2016 22:16
--- NOTE | 2016-08-02 18:04 | DSPDOC ---
General Date Date DATE: 08/02/16 TIME: 17:59 Attending Physician Mallika Johnson MD Admitting Physician Mallika Johnson MD Consulting Physician Kendra Vance MD Admitting Diagnosis major neurocognitive disorder with behavioral disturbance Discharge Diagnosis Major neurocognitive disorder, Alzheimer's disease likely (may also be a vascular component) History of Present Illness Per admitting psychiatrist Dr. Say Fernandez: 86 year old white female who was sent from ER in [place] where she was brought from home by family due to ongoing increased confusion and agitation associated with dementia. She was reportedly diagnosed with dementia prior while living in [place] but has recently moved to live with her daughter and son in law in [place]. They report she varies in her willingness and ability to work with them in the home. She is reportedly on a waiting list for [facility]. Has some moments of lucidity and can cover her deficits at times. They report she has vivid visual hallucinations they report. Prior to admission, her family found her having pushed out her screen/window in her room and was trying to elope back to [place]. Last night she did not sleep well, complained of some pain for which hospitalist ordered Aspercream. She has not been aggressive with staff here. She has been pleasant and cooperative with staff here thus far. Eats well, snacks frequently. She is continent of urine and bowel. Per hospitalist managing medical comorbidities: Patient is an 86-year-old female who resides with her daughter in [place]. She has been displaying increased to behaviors recently. It was reported. Patient kicked a screen out of a window and was found hanging shelter out while attempting to leave. She has had increased aggression towards family members, throwing a phone at her granddaughter yesterday. Due to this increase behaviors. She was taken to [place] emergency room for medical evaluation. Laboratory studies were reviewed. White count was found to be 12.4, hemoglobin 12.6, hematocrit 36.7, platelet 318. Sodium was slightly low at 133, potassium 4.7, BUN 18, creatinine 0.5. EtOH was negative, troponin was negative, TSH 3.85. Urinalysis showed a trace of leukocyte esterase with 1+ bacteria, otherwise unremarkable. Urine drug screen was negative. Given her need for further psychiatric evaluation and treatment. The [facility] was contacted and accepted patient for inpatient admission. Margoth is seen this morning in her room while getting ready for the day. She is alert and pleasant during examination. She reports having "Alcides horse" in bilateral lower extremities this mornign. She reports she has been having difficult with this for some time. Otherwise she denies pain or shortness of breath. Hospital Course The patient was admitted to [facility] and placed on safety and elopement precautions. Based on the diagnostic interview and collateral information provided by patient's daughter/DPOA, it was established that the patient suffers from major neurocognitive disorder - likely Alzheimer's disease. However , there may be a vascular component as well and LBD must be ruled out due to report of VH, though these were not a significant part of hospitalization. See notable medication changes below. Prior to all medication trials, the side effects, risk and benefits of all medications were discussed with the patient and/or medical DPOA (or guardian). The patient tolerated medications well and without any side effects. By the time of discharge, the patient participated in unit activities to the best of his/her ability and didnt have self-harming behavior or aggressive outbursts. The patients vital signs remained within normal limits and stable. Throughout the hospitalization, problematic symptoms leading to admission improved to the point that continued outpatient psychiatric treatment was believed to be an appropriate level of care. The patients daughter/DPOA was contacted prior to dismissal home.. It was recommended that patient be supervised for safety 03/10 and she agreed. She agreed to help coordinate the patients outpatient care. It was recommended that the patient not have any access to medications (prescription or over-the- counter) or weapons after discharge. 07/25/16: Observe patient on the unit. Wen/GWEN palomino and consult Podiatry for her nails. 07/26/16: DC Flexeril and increase Ibuprofen to 400mg TID. Diclofenac gel TID. Awaiting Gwen and wen 07/27/16: Voltaren gel TID for pain. Will consider starting Memantine 5mg daily after family consent. Secondly, given patients poor sleep, appetite and ritualistic behavior, she may be benefit from Mirtazapine. 07/28/16: Mirtazapine 7.5mg q HS. WEN recommends that patient needs 24 hours supervision. 07/29/16 Continue current care 07/30/16 Continue current care. Daughter working on placement 07/31/16 Continue current care 08/01/16: Continue current psychiatric medications. Outpatient provider may consider further titration of mirtazapine to 15mg PO q HS. Per hospitalist managing medical comorbidities: 07/24/16 Agree with admission to [facility] for further psychiatric evaluation and treatment Given lower extremity cramping. Will check BMP and magnesium level now. She does take a oral magnesium supplementation Monitor blood pressure and continue on Norvasc and Cozaar Encourage patient to participate in unit activities and provide a safe environment. The hospitalist services will continue to follow patient and medical management of her existing comorbidities during her stay on the [facility]. At time of discharge medical care will return to her primary care provider, Dr.Trenton Gardner 07/25/16 Labs reviewed - hgb A1c 6%; TSH, prealbumin were normal. B12 was low end of normal range - will start replacement. RPR pending. UA and CBC done at outside facility were not impressive. BP moderately elevated since arrival - prefer to monitor for a couple more days before recommending any changes to antihypertensives. Supportive care for leg cramps/pain - Aspercreme, icy hot, ibuprofen, ice bag or heat. Psychiatric admission note reviewed: r/o vascular dementia, lewy body dementia, delirium. 07/27/16: MIRAKIAN. Overall, Margoth is doing well and medically stable. Continue psychiatric treatment per Dr. Johnson and team. Psychiatric admission note reviewed: r/o vascular dementia, lewy body dementia, delirium. Continue supportive care for leg cramps/pain - Aspercreme, icy hot, ibuprofen, ice bag or heat. Continue to monitor blood pressure closely. Stable with systolic in the 140's. Repeat CBC and BMP in AM to monitor blood counts, electrolytes and renal function. Continue to provide safe and supportive environment. Case management working on discharge plan with possible admission to [facility]. 08/01/16 Will obtain Right knee X-ray. Have nursing place dom wrap to right knee for compression. Place ice pack to medical aspect to help with swelling. Encouraged use of Voltaren gel, Aspercreme,Ibuprofen and Tylenol for pain control. Nursing staff reports patient spends 1-2 hours on the toilet daily attempting to have a bowel movement. Will add schedule Miralax daily. Problems: Code Status Do Not Resuscitate Home Meds Active Scripts Cyanocobalamin (Vitamin B-12) (Vitamin B-12) 500 Mcg Tablet, 500 MCG PO DAILY for 30 Days, #30 TAB Prov:MADELINE ROSALES SHAYY 08/02/16 Polyethylene Glycol 3350 (Healthylax) 17 Gm Powd.pack, 17 G PO DAILY for CONSTIPATION MDD 17 g/day for 30 Days, #30 DOSE Prov:JANINERISHABHMADELINE Salcedo SHAYY 08/02/16 Trolamine Salicylate (Trolamine Salicylate) 85 Gm Cream..g., 1 APPLIC TOP Q4H Y for PAIN for 30 Days, #30 G Prov:JANINERISHABHMADELINE Denisse LUCAS 08/02/16 Diclofenac Sodium (Voltaren) 100 Gm Gel..gram., 1 APPLIC TOP TID Y for PAIN MDD 16 g/day for 30 Days, #60 G Prov:BOBBYMADELINE Denisse LUCAS 08/02/16 Acetaminophen (Tylenol) 325 Mg Tablet, 650 MG PO Q3-4H Y for DISCOMFORT for 30 Days, #60 TAB Prov:BOBBYMADELINE Denisse LUCAS 08/02/16 Ibuprofen (Ibuprofen) 200 Mg Tablet, 200 MG PO BID Y for PAIN, #60 TAB Prov:BOBBYMADELINE Denisse LUCAS 08/02/16 Mirtazapine (Mirtazapine) 15 Mg Tablet, 7.5 MG PO HS for Mood for 30 Days, #15 TAB Prov:MALLIKA JOHNSON MD 08/01/16 Gabapentin (Neurontin) 300 Mg Capsule, 300 MG PO TID for Pain for 30 Days, #90 CAP Prov:MALLIKA JOHNSON MD 08/01/16 Reported Medications Magnesium Oxide (Magnesium) 400 Mg Capsule, 1 CAP PO DAILY, #30 CAP 3 Refills 07/23/16 Losartan Potassium (Losartan Potassium) 50 Mg Tablet, 50 MG PO DAILY, TAB 07/23/16 Levothyroxine Sodium (Synthroid) 100 Mcg Tablet, 100 MCG PO ACB, TAB BEST IF TAKEN BEFORE BREAKFAST 07/23/16 Amlodipine Besylate (Amlodipine Besylate) 5 Mg Tablet, 5 MG PO DAILY, TAB 07/23/16 Discontinued Reported Medications Acyclovir (Zovirax) 5 Gm Cream..g., 1 APPLIC TOP TID, #5 GM 07/24/16 Gabapentin (Gabapentin) 100 Mg Capsule, 100 MG PO TID, CAP 07/23/16 Face to Face Encounter I met with patient on the day of dismissal and discussed follow up appointments , medications, and safety plan. Discharge Disposition Discharge to home with daughter for 03/10 supervision for safety and continued outpatient psychiatric f/u. MALLIKA JOHNSON MD August 02, 2016 18:02
== END 2016-08-02 15:55 | disposition home or self-care (01) | DRG 57 ==
LOC: GEN 21:37
PROVIDERS: ADMIT Psychiatry & Neurology Psychiatry; ATTEND Psychiatry & Neurology Psychiatry
DX: G30.9 Alzheimer's disease, unspecified (principal); F02.81 Dementia in other diseases classified elsewhere, unspecified severity, with behavioral disturbance; I10 Essential (primary) hypertension; E03.9 Hypothyroidism, unspecified; R25.2 Cramp and spasm; R01.1 Cardiac murmur, unspecified; Z66 Do not resuscitate; Z86.73 Personal history of transient ischemic attack (TIA), and cerebral infarction without residual deficits
CPT/HCPCS: 36415; 80048; 80061; 82607; 82746; 83036; 83735; 84134; 84443; 85025; 86592